=== PATIENT | female | born 1965 | race Caucasian/White ===

== ENCOUNTER 2019-01-19 18:19 | Observation (INO) | payer MEDICARE, MEDICAID ==
--- NOTE | 2019-01-19 19:03 | ER Document Report ---
ED Medical Screen (RME) - General Chief Complaint: Chest Pain Stated Complaint: CHEST PAIN Time Seen by Provider: 01/19/19 18:52 Notes: 53-year-old female with history of NSTEMI with 3 stents presents for left-sided chest pain that radiates into her left axilla and down her arm. Patient had associated nausea and dyspnea. Patient states symptoms are similar to previous incident. Patient states the pain started last night and she took nitroglycerin x 4 at about 1630 every 30 minutes with no relief. Positive family history mother had ME in her 40s, patient is not a smoker. Exam: No acute distress, respirations are even and unlabored, lungs clear to auscultation in all dan, regular cardiac rate and rhythm with no murmur, bilateral 2+ radial pulses I have greeted and performed a rapid initial assessment of this patient. A comprehensive ED assessment and evaluation of the patient, analysis of test results and completion of medical decision making process will be conducted by an additional ED providers. - Related Data Allergies/Adverse Reactions: NSAIDS (Non-Steroidal Anti-Inflamma Allergy (Verified 01/19/19 18:58) Physical Exam - Vital signs Vitals: Temp Pulse Resp BP Pulse Ox 97.9 F 104 H 18 106/64 97 01/19/19 18:45 01/19/19 18:45 01/19/19 18:45 01/19/19 18:45 01/19/19 18:45 Course - Vital Signs Vital signs: Temp Pulse Resp BP Pulse Ox 97.9 F 104 H 18 106/64 97 01/19/19 18:45 01/19/19 18:45 01/19/19 18:45 01/19/19 18:45 01/19/19 18:45
[2019-01-19] MEDS ORDERED: NITROGLYCERIN 0.4 MG/TAB 25 TAB/BOTTLE SL PRN (20:28)
[2019-01-19] MEDS ORDERED: NORMAL SALINE 1000 ML 1,000 ML IV ONE (20:29)
--- NOTE | 2019-01-19 20:54 | RADIOLOGY REPORT (SQ) ---
EXAM DESCRIPTION: [facility]: XR CHEST 1 VIEW CLINICAL HISTORY: 53 years Female, CP COMPARISON: None. FINDINGS: No acute infiltrate. There is minimal linear scarring in the left midlung field, likely in the lingula. No pneumothorax or pleural effusion. Mediastinum is within normal limits for this positioning. Bony structures are unremarkable. IMPRESSION: 1. No acute pulmonary findings.
--- NOTE | 2019-01-19 22:18 | EKG REPORT ---
SEVERITY:- BORDERLINE ECG - SINUS RHYTHM BORDERLINE T ABNORMALITIES, ANTERIOR LEADS : Confirmed by: Zarina Ordoñez 19-Jan-2019 22:17:33
[2019-01-19] MEDS ORDERED: ONDANSETRON HCL INJ/PF 4 MG/2 ML SDV IV ONE (22:43)
[2019-01-19] MEDS ORDERED: MORPHINE SULFATE 10 MG/ML INJ IV ONE (22:43)
[2019-01-19 22:57] LABS: AMORPHOUS SEDIMENT,URINE TRACE /HPF; APPEARANCE,URINE SLIGHTLY-CLOUDY; BILIRUBIN,URINE SMALL (NEGATIVE); COLOR,URINE YELLOW; GLUCOSE, URINE NEGATIVE (NEGATIVE); KETONES,URINE NEGATIVE (NEGATIVE); LEUKOCYTE ESTERASE,URINE TRACE (NEGATIVE); NITRITE,URINE NEGATIVE (NEGATIVE); PROTEIN,URINE NEGATIVE (NEGATIVE); URINE SPECIFIC GRAVITY 1.028
[2019-01-19 23:15] LABS: ABSOLUTE EOSINOPHILS # (AUTO) 0.1 10^3/uL (0.0-0.6); ABSOLUTE LYMPHOCYTES (AUTO) 1.7 10^3/uL (0.5-4.7); ABSOLUTE MONOCYTES (AUTO) 0.6 10^3/uL (0.1-1.4); ABSOLUTE NEUT (AUTO) 4.5 10^3/uL (1.7-8.2); BASOPHILS % (AUTO) 0.6 % (0-2); EOSINOPHILS % (AUTO) 1.9 % (0-6); HEMATOCRIT 32.5 % (36.0-47.0); HEMOGLOBIN 11.2 g/dL (12.0-15.5); LYMPHOCYTES % (AUTO) 24.9 % (13-45); MEAN CORPUSCULAR HEMOGLOBIN 29.7 pg (27.0-33.4); MEAN CORPUSCULAR HGB CONC 34.3 g/dL (32.0-36.0); MEAN CORPUSCULAR VOLUME 87 fl (80-97); MONOCYTES % (AUTO) 8.3 % (3-13); PLATELET COUNT 132 10^3/uL (150-450); RED BLOOD COUNT 3.75 10^6/uL (3.72-5.28); RED CELL DISTRIBUTION WIDTH 14.2 % (11.5-14.0); SEGMENTED NEUTROPHILS % (AUTO) 64.3 % (42-78); TOTAL CELLS COUNTED % (AUTO) 100 %
[2019-01-19 23:24] LABS: INTERNATIONAL RATION (INR) 1.07
[2019-01-19 23:26] LABS: D-DIMER 0.63 ug/mL (0.00-0.50)
[2019-01-19 23:30] LABS: ALBUMIN 3.6 g/dL (3.5-5.0); ALKALINE PHOSPHATASE 113 U/L (38-126); ANION GAP 8 (5-19); ASPARTATE AMINO TRANSFERASE 30 U/L (14-36); BILIRUBIN,DIRECT 0.2 mg/dL (0.0-0.4); BILIRUBIN,TOTAL 0.2 mg/dL (0.2-1.3); BLOOD UREA NITROGEN 15 mg/dL (7-20); CALCIUM 8.6 mg/dL (8.4-10.2); CARBON DIOXIDE 25 mmol/L (22-30); CHLORIDE 105 mmol/L (98-107); CREATINE KINASE 28 U/L (30-135); GLUCOSE 94 mg/dL (75-110); POTASSIUM 3.6 mmol/L (3.6-5.0); TOTAL PROTEIN 6.4 g/dL (6.3-8.2)
--- NOTE | 2019-01-19 23:59 | ER Document Report ---
ED Cardiac - General Chief Complaint: Chest Pain Stated Complaint: CHEST PAIN Time Seen by Provider: 01/19/19 18:52 Information source: Patient - HPI Notes: Patient complains of chest pain. She states that started this afternoon. It has been constant. It does get better with nitroglycerin but only for 5 or 10 minutes. She states it is substernal. It does radiate to her left arm. It is a heaviness or pressure sensation. It is moderate in intensity. She says some shortness of breath. She is also had nausea. She has not had any sweating. No cough cold or congestion. She states that 4 years ago she had stents placed but she has had no subsequent cardiac evaluation. She denies specifically any stress test or heart catheterizations. She does states she sees a heart doctor approximately every 1 to 2 months but he has never ordered any of those studies. - Related Data Allergies/Adverse Reactions: NSAIDS (Non-Steroidal Anti-Inflamma Allergy (Verified 01/19/19 18:58) Past Medical History - General Information source: Patient - Social History Smoking Status: Never Smoker Frequency of alcohol use: None Drug Abuse: None Family History: Reviewed & Not Pertinent Patient has suicidal ideation: No Patient has homicidal ideation: No GI Medical History: Reports: Hx Gastroesophageal Reflux Disease Psychiatric Medical History: Reports: Hx Depression Past Surgical History: Reports: Hx Section, Hx Cholecystectomy, Hx Tonsillectomy Review of Systems - Review of Systems Constitutional: denies: Chills, Fever Cardiovascular: Chest pain. denies: Palpitations Respiratory: Short of breath. denies: Cough Gastrointestinal: denies: Abdominal pain, Diarrhea, Vomiting -: Yes All other systems reviewed and negative Physical Exam - Vital signs Vitals: Temp Pulse Resp BP Pulse Ox 97.9 F 104 H 18 106/64 97 01/19/19 18:45 01/19/19 18:45 01/19/19 18:45 01/19/19 18:45 01/19/19 18:45 Interpretation: Normal - General General appearance: Appears well, Alert - HEENT Head: Normocephalic, Atraumatic Eyes: Normal Pupils: PERRL - Respiratory Respiratory status: No respiratory distress Chest status: Nontender Breath sounds: Normal Chest palpation: Normal - Cardiovascular Rhythm: Regular Heart sounds: Normal auscultation Murmur: No - Abdominal Inspection: Normal Distension: No distension Bowel sounds: Normal Tenderness: Nontender Organomegaly: No organomegaly - Back Back: Normal, Nontender - Extremities General upper extremity: Normal inspection, Nontender, Normal color, Normal ROM, Normal temperature General lower extremity: Normal inspection, Nontender, Normal color, Normal ROM, Normal temperature, Normal weight bearing. No: Henry's sign - Neurological Neuro grossly intact: Yes Cognition: Normal Orientation: AAOx4 Jessica Coma Scale Eye Opening: Spontaneous [place] Coma Scale Verbal: Oriented [place] Coma Scale Motor: Obeys Commands Jessica Coma Scale Total: 15 Speech: Normal Motor strength normal: LUE, RUE, LLE, RLE Sensory: Normal - Psychological Associated symptoms: Normal affect, Normal mood - Skin Skin Temperature: Warm Skin Moisture: Dry Skin Color: Normal Course - Re-evaluation Re-evalutation: 01/19/19 23:55 Patient reassessed at this time. She resting comfortably in the bed. She states her chest pain is better but not completely gone. Her troponin is negative her EKG is also unremarkable. Her HEART Score is 4. She appears comfortable and is sleeping in the room. However given patient's significant risk factors I think she warrants serial enzymes and EKGs. 01/20/19 03:01 Patient rested comfortably in the room at this time. Still has some minor chest pain. Second troponin is pending. Repeat EKG showed no sniffing and changes. Dr. Mcknight will follow up on repeat troponin and discussed with hospitalist the patient's admission. Patient has been told she will be admitted and is in agreement. - Vital Signs Vital signs: Temp Pulse Resp BP Pulse Ox 97.9 F 104 H 14 98/59 L 99 01/19/19 18:45 01/19/19 18:45 01/20/19 02:01 01/20/19 02:00 01/20/19 02:01 - Laboratory Result Diagrams: 01/19/19 22:58 01/19/19 22:58 Laboratory results interpreted by me: 01/19/19 01/19/19 01/19/19 22:25 22:58 22:58 Hgb 11.2 L Hct 32.5 L RDW 14.2 H Plt Count 132 L D-Dimer 0.63 H Creatine Kinase Urine Bilirubin SMALL H Urine Urobilinogen 2.0 H Ur Leukocyte Esterase TRACE H 01/19/19 22:58 Hgb Hct RDW Plt Count D-Dimer Creatine Kinase 28 L Urine Bilirubin Urine Urobilinogen Ur Leukocyte Esterase - Diagnostic Test Radiology reviewed: Image reviewed, Reports reviewed - EKG Interpretation by Me EKG shows normal: Sinus rhythm Rate: Normal - 99 Rhythm: NSR [place]/QRS: No: Right axis deviation, Left axis deviation Discharge - Discharge Clinical Impression: Chest pain Qualifiers: Chest pain type: unspecified Qualified Code(s): R07.9 - Chest pain, unspecified Condition: Stable Disposition: ADMITTED INPATIENT Admitting Provider: Ivonne (Hospitalist) Unit Admitted: Telemetry
--- NOTE | 2019-01-20 03:19 | ER Document Report ---
Doctor's Note Notes: 01/20/19 03:16 ASSESSMENT AND PLAN: Briefly, this patient is a 53-year-old female with a past medical history of urinary artery disease who presents with chest pain. Work-up thus far shows first troponin is negative and there are no EKG changes. Interventions include IV fluids and sublingual nitroglycerin. Plan as discussed with Dr. Galarza is to admit the patient and await second troponin. 1. Patient is admitted to the hospital. 2. Will follow up on repeat troponin. Discharge - Discharge Clinical Impression: Chest pain Qualifiers: Chest pain type: unspecified Qualified Code(s): R07.9 - Chest pain, unspecified Condition: Stable Disposition: ADMITTED INPATIENT Admitting Provider: Ivonne (Hospitalist) Unit Admitted: Telemetry
[2019-01-20] MEDS ORDERED: ACETAMINOPHEN 325 MG TABLET PO PRN (03:47)
[2019-01-20] MEDS ORDERED: MAGNESIUM HYDROXIDE SUSP 30 ML UDCUP PO PRN (03:47)
[2019-01-20] MEDS ORDERED: MAG HYDROX/AL HYDROX/SIMETH SUSP 30 ML UDCUP PO PRN (03:47)
[2019-01-20] MEDS ORDERED: MORPHINE SULFATE 10 MG/ML INJ IV PRN ×2 (03:47→04:11)
[2019-01-20] MEDS: HEPARIN SOD (PORCINE) 5,000 UNIT/ML 1 ML VIAL SUBCUT SCH ×3 (05:31→22:10)
--- NOTE | 2019-01-20 05:34 | PDOC H&P ---
History of Present Illness Admission Date/PCP: 01/20/2019 03:17 No local PCP Patient complains of: Chest pain History of Present Illness: DWIGHT MURPHY is a 53 year old female who presented to the emergency room with acute chest pain. She admits developing chest pain about 1:30 p.m. which persisted until about 4:30 p.m. when she noted the pain to abruptly become more severe. She began taking nitroglycerin, one tablet sublingually every 30 minutes x 4 doses, with only transient relief. She describes the pain as a constant moderate to severe heaviness in her substernal and left chest with radiation to her left axilla and down her left arm. The pain was accompanied by nausea and dyspnea. She denies other associated or accompanying signs and symptoms. She admits numerous prior similar episodes related to her coronary artery disease. She has not identified any additional aggravating or ameliorating factors for her chest pain. In the emergency room she was found to have an EKG and cardiac enzymes which showed no evidence of acute myocardial ischemia or injury. She was subsequently admitted to the hospital on observation status for further evaluation treatment. Past Medical History Cardiac Medical History: Reports: Coronary Artery Disease Denies: Atrial Fibrillation, Congestive Heart Failure, Myocardial Infarction, Hyperlipidema, Hypertension Pulmonary Medical History: Denies: Asthma, Chronic Obstructive Pulmonary Disease (COPD) EENT Medical History: Denies: Cataracts, Ears - Hearing aids Neurological Medical History: Denies: Hemorrhagic CVA, Ischemic CVA, Seizures Endocrine Medical History: Reports: Obesity Denies: Diabetes Mellitus Type 1, Diabetes Mellitus Type 2, Hyperthyroidism, Hypothyroidism Renal/ Medical History: Denies: Chronic Kidney Disease, Nephrolithiasis Malignancy Medical History: Reports: None GI Medical History: Reports: Gastroesophageal Reflux Disease Denies: Cirrhosis, Crohn's Disease, Hepatitis, Ulcerative Colitis Musculoskeltal Medical History: Denies: Arthritis, Gout Skin Medical History: Denies: Eczema, Psoriasis Psychiatric Medical History: Reports: Depression Denies: Alcohol Dependency, Substance Abuse, Tobacco Dependency Traumatic Medical History: Reports: None Hematology: Denies: Anemia, Bleeding Tendencies Infectious Medical History: Reports: None Past Surgical History Past Surgical History: Reports: Cardiac Catheterization, Section, Cholecystectomy, Coronary Stent - X 2, Tonsillectomy Social History Information Source: Patient Lives with: Spouse/Significant other Smoking Status: Never Smoker Frequency of Alcohol Use: None Hx Recreational Drug Use: No Drugs: None Hx Prescription Drug Abuse: No - Advance Directive Resuscitation Status: Full Code Surrogate healthcare decision maker:: Mina Juan Family History Family History: CAD. denies: DM, Hyperlipidemia, Hypertension, Malignancy Parental Family History Reviewed: Yes Children Family History Reviewed: No Sibling(s) Family History Reviewed.: Yes Medication/Allergy Allergies/Adverse Reactions: NSAIDS (Non-Steroidal Anti-Inflamma Allergy (Verified 01/19/19 18:58) Review of Systems Constitutional: ABSENT: chills, fever(s) Eyes: ABSENT: visual disturbances, other - Eye pain Ears: ABSENT: hearing changes, other - Ear pain Nose, Mouth, and Throat: ABSENT: mouth pain, sore throat Cardiovascular: PRESENT: as per HPI, chest pain, dyspnea on exertion. ABSENT: edema, orthropnea, palpitations Respiratory: PRESENT: dyspnea. ABSENT: cough Gastrointestinal: PRESENT: as per HPI, nausea. ABSENT: abdominal pain, co nstipation, diarrhea, vomiting Genitourinary: ABSENT: dysuria, hematuria Musculoskeletal: ABSENT: back pain, joint swelling, muscle weakness Integumentary: ABSENT: pruritus, rash Neurological: ABSENT: confusion, convulsions, focal weakness, memory loss, syncope Psychiatric: ABSENT: anxiety, depression Endocrine: ABSENT: cold intolerance, heat intolerance Hematologic/Lymphatic: ABSENT: easy bleeding, easy bruising Allergic/Immunologic: ABSENT: seasonal rhinorrhea Physical Exam Vital Signs: Temp Pulse Resp BP Pulse Ox 97.9 F 104 H 14 107/63 99 01/20/19 03:04 01/19/19 18:45 01/20/19 03:04 01/20/19 03:04 01/20/19 03:04 Intake & Output 01/18/19 01/19/19 01/20/19 23:59 23:59 23:59 Intake Total 1000 Balance 1000 Weight 101.3 kg General appearance: PRESENT: no acute distress, cooperative, obese Head exam: PRESENT: atraumatic, normocephalic Eye exam: PRESENT: conjunctiva pink. ABSENT: conjunctival injection, scleral icterus Ear exam: PRESENT: normal external ear exam. ABSENT: bleeding, drainage Mouth exam: PRESENT: dry mucosa, neck supple Neck exam: ABSENT: thyromegaly, tracheal deviation Respiratory exam: PRESENT: clear to auscultation scotty, symmetrical, unlabored Cardiovascular exam: PRESENT: RRR. ABSENT: clicks, gallop, rubs Pulses: PRESENT: normal radial pulses, normal dorsalis pedis pul Vascular exam: PRESENT: normal capillary refill. ABSENT: pallor GI/Abdominal exam: PRESENT: normal bowel sounds, soft Rectal exam: PRESENT: deferred Extremities exam: ABSENT: joint swelling, pedal edema Musculoskeletal exam: ABSENT: deformity, dislocation Neurological exam: PRESENT: alert, oriented to person, oriented to place, oriented to time, oriented to situation, CN II-XII grossly intact. ABSENT: motor sensory deficit Psychiatric exam: PRESENT: appropriate affect, normal mood Skin exam: PRESENT: dry, intact, warm. ABSENT: jaundice, rash, urticaria Results Laboratory Results: 01/19/19 22:58 01/19/19 22:58 01/19/19 01/19/19 01/19/19 22:25 22:58 22:58 WBC 7.0 RBC 3.75 Hgb 11.2 L Hct 32.5 L MCV 87 MCH 29.7 MCHC 34.3 RDW 14.2 H Plt Count 132 L Seg Neutrophils % 64.3 Sodium 137.7 Potassium 3.6 Chloride 105 Carbon Dioxide 25 Anion Gap 8 BUN 15 Creatinine 0.89 Est GFR ( Amer) > 60 Glucose 94 Calcium 8.6 Total Bilirubin 0.2 AST 30 Alkaline Phosphatase 113 Total Protein 6.4 Albumin 3.6 Urine Color YELLOW Urine Appearance SLIGHTLY-CLOUDY Urine pH 6.0 Ur Specific [place] 1.028 Urine Protein NEGATIVE Urine Glucose (UA) NEGATIVE Urine Ketones NEGATIVE Urine Blood NEGATIVE Urine Nitrite NEGATIVE Ur Leukocyte Esterase TRACE H Urine WBC (Auto) 16 Urine RBC (Auto) 4 01/19/19 01/19/19 22:58 22:58 Creatine Kinase 28 L Troponin I < 0.012 Impressions: Chest X-Ray 01/19/19 20:18 IMPRESSION: 1. No acute pulmonary findings. Assessment and Plan - Diagnosis (1) Chest pain Qualifiers: Chest pain type: unspecified Qualified Code(s): R07.9 - Chest pain, unspecified Is this a current diagnosis for this admission?: Yes Plan: Serial cardiac enzymes will be obtained to evaluate for the possibility of myocardial infarction or ischemia. If negative patient will have a Cardiolite cardiac stress test. Her chest pain will be treated with morphine sulfate 2-4 mg IV every 2 hours as needed via a sliding scale for pain. Additionally she will have Nitrol ointment 1 inch applied every 6 hours. (2) CAD (coronary artery disease), [place] coronary artery Qualifiers: [place] vs. transplanted heart: [place] heart Associated angina: with unspecified angina Qualified Code(s): I25.119 - Atherosclerotic heart disease of [place] coronary artery with unspecified angina pectoris Is this a current diagnosis for this admission?: Yes Plan: Patient will be continued on her usual cardiac regimen, with changes made only as required. (3) Gastroesophageal reflux disease with esophagitis Is this a current diagnosis for this admission?: Yes Plan: Patient will be continued on her usual gastroesophageal reflux disease regiment with changes made only as required. (4) Obesity (BMI 30-39.9) Is this a current diagnosis for this admission?: Yes Plan: A surgical manager consultation will be obtained for the patient to assist her in better cardiac health through weight loss. - Time Time Spent with patient: 25-34 minutes Medications reviewed and adjusted accordingly: Yes Anticipated discharge: Home Within: within 48 hours - Inpatient Certification Based on my medical assessment, after consideration of the patient's comorbidities, presenting symptoms, or acuity I expect that the services needed warrant INPATIENT care.: No I certify that my determination is in accordance with my understanding of Medicare's requirements for reasonable and necessary INPATIENT services [42 CFR 412.3e].: No Medical Necessity: Need Close Monitoring Due to Risk of Patient Decompensation, Need For Continuous Telemetry Monitoring, Need for Pain Control, Risk of Complication if Not Cared For in Hospital
[2019-01-20] MEDS ORDERED: NITROGLYCERIN 2% OINTMENT 1 GM PACKET TP SCH (06:00)
[2019-01-20] MEDS ORDERED: NORMAL SALINE 1000 ML 1,000 ML IV ONE (06:30)
[2019-01-20] MEDS: FAMOTIDINE 20 MG TABLET PO SCH ×4 (08:16→22:12)
[2019-01-20] MEDS: SUCRALFATE 1 GM TABLET PO SCH ×4 (08:16→22:11)
[2019-01-20] MEDS: METOCLOPRAMIDE HCL 10 MG TABLET PO SCH ×4 (08:16→22:12)
[2019-01-20] MEDS: DOCUSATE SODIUM 100 MG CAPSULE PO SCH ×2 (09:01→17:04)
[2019-01-20 09:58] LABS: CHOLESTEROL 113.78 mg/dL (0-200); CREATINE KINASE 22 U/L (30-135); TRIGLYCERIDES 111 mg/dL (<150)
[2019-01-20 10:09] LABS: DIRECT LDL 50 mg/dL (<100); FREE T3 3.25 pg/mL (2.77-5.27); FREE T4 (FREE THYROXINE) 1.01 ng/dL (0.78-2.19)
[2019-01-20 10:22] LABS: THYROID STIMULATING HORMONE 2.94 uIU/mL (0.47-4.68)
[2019-01-20] MEDS ORDERED: (PENDING PHARMACY ID) (Hydroxyzine Hcl [Atarax 25 Mg Tablet] 25 MG) PO PRN (12:01)
[2019-01-20] MEDS ORDERED: (PENDING PHARMACY ID) (Quetiapine Fumarate [Seroquel] 50 MG) PO SCH (12:15)
[2019-01-20] MEDS ORDERED: DIAZEPAM 5 MG TABLET PO PRN (12:26)
[2019-01-20] MEDS ORDERED: HYDROXYZINE HCL 10 MG TABLET PO PRN (12:27)
[2019-01-20] MEDS: DULOXETINE HCL 30 MG CAPSULE.DR PO SCH ×2 (12:36→22:12)
[2019-01-20] MEDS: CLOPIDOGREL BISULFATE 75 MG TABLET PO SCH (12:42)
[2019-01-20] MEDS: NORMAL SALINE 1000 ML 1,000 ML IV PRN (15:41)
[2019-01-20 15:51] LABS: CREATINE KINASE MB < 0.22 ng/mL (<4.55); TROPONIN I < 0.012 ng/mL
[2019-01-20] MEDS ORDERED: QUETIAPINE FUMARATE 25 MG TABLET PO SCH (18:00)
[2019-01-20 21:52] LABS: CREATINE KINASE MB < 0.22 ng/mL (<4.55); TROPONIN I < 0.012 ng/mL
[2019-01-20] MEDS ORDERED: AMITRIPTYLINE HCL 50 MG TABLET PO SCH (22:00)
[2019-01-20] MEDS ORDERED: SIMVASTATIN 40 MG TABLET PO SCH (22:00)
[2019-01-20] MEDS ORDERED: (PENDING PHARMACY ID) (Amitriptyline Hcl [Elavil 100 Mg Tablet] 100 MG) PO SCH (22:00)
[2019-01-20] MEDS ORDERED: (PENDING PHARMACY ID) (Quetiapine Fumarate [Seroquel] 200 MG) PO SCH (22:00)
[2019-01-20] MEDS ORDERED: QUETIAPINE FUMARATE 100 MG TABLET PO SCH (22:00)
[2019-01-20] MEDS: SIMVASTATIN 10 MG TABLET PO SCH (22:11)
[2019-01-20] MEDS: QUETIAPINE FUMARATE 100 MG TABLET PO SCH (22:12)
[2019-01-20] MEDS: MORPHINE SULFATE 10 MG/ML INJ IV PRN (22:13)
[2019-01-21] MEDS: MORPHINE SULFATE 10 MG/ML INJ IV PRN ×5 (02:41→20:27)
[2019-01-21] MEDS: HEPARIN SOD (PORCINE) 5,000 UNIT/ML 1 ML VIAL SUBCUT SCH ×3 (05:49→22:27)
[2019-01-21] MEDS: NORMAL SALINE 1000 ML 1,000 ML IV PRN (05:51)
[2019-01-21] MEDS: FAMOTIDINE 20 MG TABLET PO SCH ×3 (09:20→16:00)
[2019-01-21] MEDS: SUCRALFATE 1 GM TABLET PO SCH ×4 (09:21→22:25)
[2019-01-21] MEDS: METOCLOPRAMIDE HCL 10 MG TABLET PO SCH ×4 (09:22→22:26)
[2019-01-21] MEDS: CLOPIDOGREL BISULFATE 75 MG TABLET PO SCH (09:23)
[2019-01-21] MEDS: DULOXETINE HCL 30 MG CAPSULE.DR PO SCH ×2 (09:23→22:23)
[2019-01-21] MEDS: DOCUSATE SODIUM 100 MG CAPSULE PO SCH ×2 (09:23→18:27)
--- NOTE | 2019-01-21 11:02 | EKG REPORT ---
SEVERITY:- BORDERLINE ECG - SINUS RHYTHM BORDERLINE T ABNORMALITIES, ANTERIOR LEADS BORDERLINE PROLONGED QT INTERVAL : Confirmed by: Zarina Ordoñez 21-Jan-2019 11:01:56
--- NOTE | 2019-01-21 16:17 | PDOC PROGRESS REPORT ---
Subjective Progress Note for:: 01/21/19 Subjective:: DWIGHT MURPHY is a 53 year old female who presented to the emergency room with acute chest pain. She admits developing chest pain about 1:30 p.m. which persisted until about 4:30 p.m. when she noted the pain to abruptly become more severe. She began taking nitroglycerin, one tablet sublingually every 30 minutes x 4 doses, with only transient relief. She describes the pain as a constant moderate to severe heaviness in her substernal and left chest with radiation to her left axilla and down her left arm. The pain was accompanied by nausea and dyspnea. She denies other associated or accompanying signs and symptoms. She admits numerous prior similar episodes related to her coronary artery disease. She has not identified any additional aggravating or kendra liorating factors for her chest pain. In the emergency room she was found to have an EKG and cardiac enzymes which showed no evidence of acute myocardial ischemia or injury. She was subsequently admitted to the hospital on observation status for further evaluation treatment. Reason For Visit: CHEST PAIN Physical Exam Vital Signs: Temp Pulse Resp BP Pulse Ox 98.3 F 86 13 100/83 96 01/21/19 12:51 01/21/19 12:51 01/21/19 12:51 01/21/19 12:51 01/21/19 15:45 Pulse Oximeter Continuous Start: 01/21/19 01:07 Freq: RTQ4 Status: Active Protocol: Document 01/21/19 15:45 PMU (Rec: 01/21/19 15:47 PMU [id number]) Pulse Oximetry Assessment Oxygen Saturation (92-100) 96 Fraction of Inspired Oxygen (FIO2) 21 Equipment Usage Equipment in Use Continuous SpO2 Machine # [id number] Intake & Output 01/20/19 01/21/19 01/22/19 06:59 06:59 06:59 Intake Total 1000 1999 Output Total 0 Balance 1000 1999 Weight 98.6 kg 97.9 kg Results Laboratory Results: 01/19/19 22:58 01/19/19 22:58 01/19/19 01/19/19 01/20/19 22:58 22:58 02:34 Creatine Kinase 28 L CK-MB (CK-2) Troponin I < 0.012 < 0.012 01/20/19 01/20/19 01/20/19 08:52 08:52 10:53 Creatine Kinase 22 L CK-MB (CK-2) < 0.22 Troponin I Cancelled < 0.012 01/20/19 01/20/19 01/20/19 14:30 14:50 21:10 Creatine Kinase 25 L 21 L CK-MB (CK-2) < 0.22 Troponin I < 0.012 01/20/19 21:10 Creatine Kinase CK-MB (CK-2) < 0.22 Troponin I < 0.012 Impressions: Chest X-Ray 01/19/19 20:18 IMPRESSION: 1. No acute pulmonary findings. Assessment and Plan - Diagnosis (1) Chest pain Qualifiers: Chest pain type: unspecified Qualified Code(s): R07.9 - Chest pain, unspecified Is this a current diagnosis for this admission?: Yes Plan: Still complaining of persistent chest pain, pressure-like, left lower chest, and left upper abdomen, by nitroglycerin. Troponins negative x4 EKG no acute changes. Cardiolite cardiac stress test scheduled but had to be consulted yesterday and today as patient having ongoing persistent chest pain. Continue telemetry, antiplatelets, blockers, JENNIFER, sublingual nitroglycerin, morphine. (2) CAD (coronary artery disease), [place] coronary artery Qualifiers: [place] vs. transplanted heart: [place] heart Associated angina: with unspecified angina Qualified Code(s): I25.119 - Atherosclerotic heart disease of [place] coronary artery with unspecified angina pectoris Is this a current diagnosis for this admission?: Yes Plan: Status post 2 stent placement x2 years. Continue DAPT, beta-blockers, statins, JENNIFER. Outpatient cardiology follow-up. (3) Gastroesophageal reflux disease with esophagitis Is this a current diagnosis for this admission?: Yes Plan: Continue PPIs. Avoid NSAIDs. H&H stable. Denies any hematemesis, melena or hematochezia. Outpatient PCP gastroenterology follow-up. Patient may need GI endoscopy in future. (4) Obesity (BMI 30-39.9) Is this a current diagnosis for this admission?: Yes Plan: Diet and lifestyle modification recommended. Thyroid function test WNL. (5) Depression Is this a current diagnosis for this admission?: Yes Plan: Chronic. On multiple antidepressant and antipsychotics. Patient very somnolent most of the time. Denies any homicidal or suicidal ideation. Restart home medications at a lower dose to avoid excessive somnolence. Outpatient PCP and psychiatry follow-up. (6) Somnolence Is this a current diagnosis for this admission?: Yes Plan: Very somnolent sleeping most of the night and day. This is most likely induced by polypharmacy. Patient's home medications are Hydroxyzine 25 mg every 8 as needed. Duloxetine 60 mg p.o. twice daily. Trazodone 300 mg p.o. nightly. Amitriptyline 100 mg p.o. nightly. Gabapentin 800 mg p.o. twice daily. [place] 1 tab every 4 hours as needed. Seroquel 200 mg p.o. nightly. Seroquel 50 mg p.o. twice daily. Soma 350 mg p.o. every 8 hours as needed. Diazepam 10 mg p.o. twice daily PRN. To avoid withdrawal and reduce excessive somnolence will restart home meds at the lower dosage. Continue Seroquel 100 mg p.o. nightly, amitriptyline 50 mg p.o. nightly, duloxetine mg p.o. twice daily, trazodone 150 mg nightly. Patient's medications need to be reconciled by psychiatry and PCP. Strongly advised patient to follow-up with PCP and psychiatry for reconciliation of her meds.
[2019-01-21] MEDS: PANTOPRAZOLE SODIUM 40 MG TABLET.DR PO SCH (17:15)
[2019-01-21] MEDS ORDERED: (PENDING PHARMACY ID) (Trazodone Hcl [Desyrel] 150 MG) PO SCH (22:00)
[2019-01-21] MEDS: SIMVASTATIN 10 MG TABLET PO SCH (22:23)
[2019-01-21] MEDS: TRAZODONE HCL 50 MG TABLET PO SCH (22:23)
[2019-01-21] MEDS: QUETIAPINE FUMARATE 100 MG TABLET PO SCH (22:25)
[2019-01-21] MEDS: AMITRIPTYLINE HCL 50 MG TABLET PO SCH (22:25)
[2019-01-22] MEDS: HEPARIN SOD (PORCINE) 5,000 UNIT/ML 1 ML VIAL SUBCUT SCH ×3 (06:00→21:25)
[2019-01-22 07:33] LABS: ALBUMIN 3.1 g/dL (3.5-5.0); ALKALINE PHOSPHATASE 98 U/L (38-126); ANION GAP 6 (5-19); ASPARTATE AMINO TRANSFERASE 26 U/L (14-36); BILIRUBIN,DIRECT 0.2 mg/dL (0.0-0.4); BILIRUBIN,TOTAL 0.2 mg/dL (0.2-1.3); BLOOD UREA NITROGEN 8 mg/dL (7-20); CALCIUM 8.6 mg/dL (8.4-10.2); CARBON DIOXIDE 29 mmol/L (22-30); CHLORIDE 106 mmol/L (98-107); GLUCOSE 80 mg/dL (75-110); TOTAL PROTEIN 5.7 g/dL (6.3-8.2)
[2019-01-22] MEDS: SUCRALFATE 1 GM TABLET PO SCH ×4 (08:13→21:23)
[2019-01-22] MEDS: PANTOPRAZOLE SODIUM 40 MG TABLET.DR PO SCH ×2 (08:13→17:56)
[2019-01-22] MEDS: METOCLOPRAMIDE HCL 10 MG TABLET PO SCH ×4 (08:13→21:23)
[2019-01-22] MEDS: MORPHINE SULFATE 10 MG/ML INJ IV PRN ×4 (08:21→23:08)
[2019-01-22] MEDS: ONDANSETRON HCL INJ/PF 4 MG/2 ML SDV IV PRN ×4 (08:21→23:07)
--- NOTE | 2019-01-22 11:54 | PDOC PROGRESS REPORT ---
Subjective Progress Note for:: 01/22/19 Subjective:: DWIGHT MURPHY is a 53 year old female who presented to the emergency room with acute chest pain. She admits developing chest pain about 1:30 p.m. which persisted until about 4:30 p.m. when she noted the pain to abruptly become more severe. She began taking nitroglycerin, one tablet sublingually every 30 minutes x 4 doses, with only transient relief. She describes the pain as a constant moderate to severe heaviness in her substernal and left chest with radiation to her left axilla and down her left arm. The pain was accompanied by nausea and dyspnea. She denies other associated or accompanying signs and symptoms. She admits numerous prior similar episodes related to her coronary artery disease. She has not identified any additional aggravating or kendra liorating factors for her chest pain. In the emergency room she was found to have an EKG and cardiac enzymes which showed no evidence of acute myocardial ischemia or injury. She was subsequently admitted to the hospital on observation status for further evaluation treatment. 01/22/2019. No acute events overnight, patient is stating that she is still having on and off chest pain, left-sided, pressure-like, 4/5, stress test was canceled again because of chest pain. Patient is more awake and alert and cooperative with physical examination. Apart from recurrent chest pain she denies any fever, chills, nausea, vomiting, diarrhea, constipation or any urinary symptoms. Reason For Visit: CHEST PAIN Physical Exam Vital Signs: Temp Pulse Resp BP Pulse Ox 97.9 F 86 15 130/61 H 98 01/22/19 08:28 01/22/19 08:28 01/22/19 08:28 01/22/19 08:28 01/22/19 08:00 Pulse Oximeter Continuous Start: 01/21/19 01:07 Freq: RTQ4 Status: Active Protocol: Document 01/22/19 08:00 SANDRA (Rec: 01/22/19 08:57 SANDRA [id number]) Pulse Oximetry Assessment Oxygen Saturation (92-100) 98 Oxygen Flow Rate (L/min) 1 Oxygen Delivery Method Nasal Cannula Equipment Usage Equipment in Use Continuous SpO2 Machine # 1 Intake & Output 01/21/19 01/22/19 01/23/19 06:59 06:59 06:59 Intake Total 1999 480 Balance 1999 480 Weight 97.9 kg 101.7 kg General appearance: PRESENT: morbidly obese Head exam: PRESENT: atraumatic, normocephalic Respiratory exam: PRESENT: clear to auscultation scotty. ABSENT: rales, rhonchi, wheezes Cardiovascular exam: PRESENT: RRR. ABSENT: diastolic murmur, rubs, systolic murmur GI/Abdominal exam: PRESENT: normal bowel sounds, soft. ABSENT: distended, guarding, mass, organolmegaly, rebound, tenderness Extremities exam: PRESENT: full ROM. ABSENT: calf tenderness, clubbing, pedal edema Neurological exam: PRESENT: alert, awake, oriented to person, oriented to place, oriented to time, oriented to situation, CN II-XII grossly intact. ABSENT: motor sensory deficit Results Laboratory Results: 01/19/19 22:58 01/22/19 05:48 01/22/19 05:48 Sodium 141.0 Potassium 4.0 Chloride 106 Carbon Dioxide 29 Anion Gap 6 BUN 8 Creatinine 0.84 Est GFR ( Amer) > 60 Glucose 80 Calcium 8.6 Magnesium 2.0 Total Bilirubin 0.2 AST 26 Alkaline Phosphatase 98 Total Protein 5.7 L Albumin 3.1 L 01/19/19 01/19/19 01/20/19 22:58 22:58 02:34 Creatine Kinase 28 L CK-MB (CK-2) Troponin I < 0.012 < 0.012 01/20/19 01/20/19 01/20/19 08:52 08:52 10:53 Creatine Kinase 22 L CK-MB (CK-2) < 0.22 Troponin I Cancelled < 0.012 01/20/19 01/20/19 01/20/19 14:30 14:50 21:10 Creatine Kinase 25 L 21 L CK-MB (CK-2) < 0.22 Troponin I < 0.012 01/20/19 21:10 Creatine Kinase CK-MB (CK-2) < 0.22 Troponin I < 0.012 Impressions: Chest X-Ray 01/19/19 20:18 IMPRESSION: 1. No acute pulmonary findings. Assessment and Plan - Diagnosis (1) Chest pain Qualifiers: Chest pain type: unspecified Qualified Code(s): R07.9 - Chest pain, unspecified Is this a current diagnosis for this admission?: Yes Plan: Still complaining of persistent chest pain, 4/5, pressure-like, left lower chest, and left upper abdomen, by nitroglycerin. Troponins negative x4 EKG no acute changes. Cardiolite cardiac stress test scheduled but had to be consulted yesterday and today as patient having ongoing persistent chest pain. Continue telemetry, antiplatelets, blockers, JENNIFER, sublingual nitroglycerin, morphine. (2) CAD (coronary artery disease), [place] coronary artery Qualifiers: [place] vs. transplanted heart: [place] heart Associated angina: with unspecified angina Qualified Code(s): I25.119 - Atherosclerotic heart disease of [place] coronary artery with unspecified angina pectoris Is this a current diagnosis for this admission?: Yes Plan: Status post 2 stent placement x2 years. Continue Plavix, beta-blockers, statins, JENNIFER. Outpatient cardiology follow-up. (3) Gastroesophageal reflux disease with esophagitis Is this a current diagnosis for this admission?: Yes Plan: Continue PPIs. Avoid NSAIDs. H&H stable. Denies any hematemesis, melena or hematochezia. Outpatient PCP gastroenterology follow-up. Patient may need GI endoscopy in future. (4) Obesity (BMI 30-39.9) Is this a current diagnosis for this admission?: Yes Plan: Diet and lifestyle modification recommended. Thyroid function test WNL. (5) Depression Is this a current diagnosis for this admission?: Yes Plan: Chronic. On multiple antidepressant and antipsychotics. Patient very somnolent most of the time. Denies any homicidal or suicidal ideation. Restart home medications at a lower dose to avoid excessive somnolence. Outpatient PCP and psychiatry follow-up. (6) Somnolence Is this a current diagnosis for this admission?: Yes Plan: Much improved. Patient more alert and cooperative with physical examination. Had a discussion about taking too many antipsychotics and antidepressants. Patient lives in [place], [facility], stating that she sees a psychiatrist and PCP who both have prescribed her below medications. Patient's home medications are Hydroxyzine 25 mg every 8 as needed. Duloxetine 60 mg p.o. twice daily. Trazodone 300 mg p.o. nightly. Amitriptyline 100 mg p.o. nightly. Gabapentin 800 mg p.o. twice daily. [place] 1 tab every 4 hours as needed. Seroquel 200 mg p.o. nightly. Seroquel 50 mg p.o. twice daily. Soma 350 mg p.o. every 8 hours as needed. Diazepam 10 mg p.o. twice daily PRN. To avoid withdrawal and reduce excessive somnolence will restart home meds at the lower dosage. Continue Seroquel 100 mg p.o. nightly, amitriptyline 50 mg p.o. nightly, duloxetine mg p.o. twice daily, trazodone 150 mg nightly. Patient's medications need to be reconciled by psychiatry and PCP. Strongly advised patient to follow-up with PCP and psychiatry for reconciliation of her meds. I have informed patient that I have cut down on her medications due to excessive somnolence and would like her to continue this regimen until seen by her psychiatrist. Patient agreed.
[2019-01-22] MEDS: DOCUSATE SODIUM 100 MG CAPSULE PO SCH ×2 (12:21→17:56)
[2019-01-22] MEDS: CLOPIDOGREL BISULFATE 75 MG TABLET PO SCH (12:22)
[2019-01-22] MEDS: DULOXETINE HCL 30 MG CAPSULE.DR PO SCH ×2 (12:22→21:23)
[2019-01-22] MEDS: TRAZODONE HCL 50 MG TABLET PO SCH (21:20)
[2019-01-22] MEDS: AMITRIPTYLINE HCL 50 MG TABLET PO SCH (21:22)
[2019-01-22] MEDS: SIMVASTATIN 10 MG TABLET PO SCH (21:22)
[2019-01-22] MEDS: QUETIAPINE FUMARATE 100 MG TABLET PO SCH (21:23)
[2019-01-23] MEDS: PANTOPRAZOLE SODIUM 40 MG TABLET.DR PO SCH ×2 (05:41→16:50)
[2019-01-23] MEDS: HEPARIN SOD (PORCINE) 5,000 UNIT/ML 1 ML VIAL SUBCUT SCH ×3 (05:41→21:33)
[2019-01-23 06:51] LABS: ANION GAP 5 (5-19); BLOOD UREA NITROGEN 8 mg/dL (7-20); CALCIUM 8.6 mg/dL (8.4-10.2); CARBON DIOXIDE 33 mmol/L (22-30); CHLORIDE 102 mmol/L (98-107); GLUCOSE 85 mg/dL (75-110); POTASSIUM 4.3 mmol/L (3.6-5.0)
[2019-01-23] MEDS: METOCLOPRAMIDE HCL 10 MG TABLET PO SCH ×4 (08:40→21:31)
[2019-01-23] MEDS: SUCRALFATE 1 GM TABLET PO SCH ×4 (08:40→21:30)
[2019-01-23] MEDS: MORPHINE SULFATE 10 MG/ML INJ IV PRN ×4 (08:43→18:44)
[2019-01-23] MEDS: CLOPIDOGREL BISULFATE 75 MG TABLET PO SCH (09:54)
[2019-01-23] MEDS: DOCUSATE SODIUM 100 MG CAPSULE PO SCH ×2 (09:54→17:19)
[2019-01-23] MEDS: DULOXETINE HCL 30 MG CAPSULE.DR PO SCH ×2 (09:54→21:30)
[2019-01-23] MEDS: ONDANSETRON HCL INJ/PF 4 MG/2 ML SDV IV PRN ×2 (12:51→18:44)
--- NOTE | 2019-01-23 13:52 | RADIOLOGY REPORT (SQ) ---
EXAM DESCRIPTION: BARIUM SWALLOW ESOPHAGUS COMPLETED DATE/TIME: 01/23/2019 10:59 am REASON FOR STUDY: Dysphagia, GERD, Chest pain COMPARISON: AP chest 01/19/2019 TECHNIQUE: Under fluoroscopic guidance, patient ingested effervescent granules followed by thick and thin barium. Fluoroscopic spot images and routine radiographic images acquired and stored on PACS. 12 MM BARIUM TABLET GIVEN: Yes. No significant delay in passage. LIMITATIONS: None. FLUOROSCOPY TIME: FLUORO TIME: 2 minutes 8 seconds 15 series of digital fluoroscopic images saved to PACS. FINDINGS: NEUROMUSCULAR COORDINATION OF SWALLOW: Normal. No aspiration. ESOPHAGEAL MOTILITY: Normal peristalsis. No esophageal spasm. ESOPHAGEAL MUCOSA: Normal mucosa without masses or ulceration. GASTRO-ESOPHAGEAL JUNCTION: Tiny sliding hiatal hernia with minimal peptic narrowing of the distal es ophagus. No ulceration. No Schatzki's ring. Minimal gastroesophageal reflux. STOMACH: The esophagus empties into a fundal pouch of a Mirna-en-Y gastric bypass. Although there is prompt filling of the efferrent loop from the gastric pouch, the anastomosis with the pouch is marked ly abnormal, distorted and ulcerated. There is filling of the [place] body and antrum of stomach. Th is represents a failed gastric bypass with abnormal connection between the fundal pouch and body/antr um of stomach from peptic disease or erosions. There is prompt emptying of the antrum and pylorus into the duodenum. OTHER: No other significant finding. IMPRESSION: Abnormal stomach. Post gastric bypass with Mirna loop. Aberrant communication between t he fundal pouch/proximal Mirna loop and remainder of the stomach through a distorted irregular channel , possibly from chronic peptic disease and ulceration. Barium passes through the fundal pouch and in to the efferrent loop and gastric antrum/pylorus region without delay. COMMENT: Quality ID [id number]: Final reports for procedures using fluoroscopy that document radiation exp osure indices, or exposure time and number of fluorographic images (if radiation exposure indices are not available) TECHNICAL DOCUMENTATION: JOB ID: [id number] [employer]- All Rights Reserved Reading location - IP/workstation name: [email or web address]
--- NOTE | 2019-01-23 17:21 | PDOC PROGRESS REPORT ---
Subjective Progress Note for:: 01/23/19 Subjective:: DWIGHT MURPHY is a 53 year old female who presented to the emergency room with acute chest pain. She admits developing chest pain about 1:30 p.m. which persisted until about 4:30 p.m. when she noted the pain to abruptly become more severe. She began taking nitroglycerin, one tablet sublingually every 30 minutes x 4 doses, with only transient relief. She describes the pain as a constant moderate to severe heaviness in her substernal and left chest with radiation to her left axilla and down her left arm. The pain was accompanied by nausea and dyspnea. She denies other associated or accompanying signs and symptoms. She admits numerous prior similar episodes related to her coronary artery disease. She has not identified any additional aggravating or kendra liorating factors for her chest pain. In the emergency room she was found to have an EKG and cardiac enzymes which showed no evidence of acute myocardial ischemia or injury. She was subsequently admitted to the hospital on observation status for further evaluation treatment. 01/22/2019. No acute events overnight, patient is stating that she is still having on and off chest pain, left-sided, pressure-like, 4/5, stress test was canceled again because of chest pain. Patient is more awake and alert and cooperative with physical examination. Apart from recurrent chest pain she denies any fever, chills, nausea, vomiting, diarrhea, constipation or any urinary symptoms. 01/23/2019. Patient still complaining on and off chest pain, pressure-like left- sided, nuclear stress test canceled pending cardiology recommendation,, denies any fever, chills, nausea, vomiting, diarrhea, constipation or any urinary symptoms. Reason For Visit: CHEST PAIN Physical Exam Vital Signs: Temp Pulse Resp BP Pulse Ox 98.2 F 86 18 108/57 L 90 L 01/23/19 15:08 01/23/19 15:08 01/23/19 15:08 01/23/19 15:08 01/23/19 15:08 Pulse Oximeter Continuous Start: 01/21/19 01:07 Freq: RTQ4 Status: Complete Protocol: Document 01/23/19 00:15 [facility] (Rec: 01/23/19 01:17 [facility] [id number]) Pulse Oximetry Assessment Oxygen Saturation (92-100) 95 Oxygen Flow Rate (L/min) 1 Oxygen Delivery Method Nasal Cannula Fraction of Inspired Oxygen (FIO2) 24 Equipment Usage Equipment in Use Continuous Pulse Oximeter 24 Hour Charge Charge Now Continuous SpO2 Machine # N-[id number] Intake & Output 01/22/19 01/23/19 01/24/19 06:59 06:59 06:59 Intake Total 480 542 Output Total 1000 Balance 480 -458 Weight 101.7 kg 102.5 kg General appearance: PRESENT: morbidly obese Head exam: PRESENT: atraumatic, normocephalic Respiratory exam: PRESENT: clear to auscultation scotty. ABSENT: rales, rhonchi, wheezes Cardiovascular exam: PRESENT: RRR. ABSENT: diastolic murmur, rubs, systolic murmur GI/Abdominal exam: PRESENT: normal bowel sounds, soft. ABSENT: distended, guarding, mass, organolmegaly, rebound, tenderness Neurological exam: PRESENT: alert, awake, oriented to person, oriented to place, oriented to time, oriented to situation, CN II-XII grossly intact. ABSENT: motor sensory deficit Results Laboratory Results: 01/19/19 22:58 01/23/19 06:29 01/23/19 06:29 Sodium 139.6 Potassium 4.3 Chloride 102 Carbon Dioxide 33 H Anion Gap 5 BUN 8 Creatinine 0.88 Est GFR ( Amer) > 60 Glucose 85 Calcium 8.6 01/19/19 01/19/19 01/20/19 22:58 22:58 02:34 Creatine Kinase 28 L CK-MB (CK-2) Troponin I < 0.012 < 0.012 01/20/19 01/20/19 01/20/19 08:52 08:52 10:53 Creatine Kinase 22 L CK-MB (CK-2) < 0.22 Troponin I Cancelled < 0.012 01/20/19 01/20/19 01/20/19 14:30 14:50 21:10 Creatine Kinase 25 L 21 L CK-MB (CK-2) < 0.22 Troponin I < 0.012 01/20/19 21:10 Creatine Kinase CK-MB (CK-2) < 0.22 Troponin I < 0.012 Impressions: Chest X-Ray 01/19/19 20:18 IMPRESSION: 1. No acute pulmonary findings. Esophagus X-Ray 01/23/19 00:00 IMPRESSION: Abnormal stomach. Post gastric bypass with Mirna loop. Aberrant communication between the fundal pouch/proximal Mirna loop and remainder of the stomach through a distorted irregular channel, possibly from chronic peptic disease and ulceration. Barium passes through the fundal pouch and into the efferrent loop and gastric antrum/pylorus region without delay. Assessment and Plan - Diagnosis (1) Chest pain Qualifiers: Chest pain type: unspecified Qualified Code(s): R07.9 - Chest pain, unspecified Is this a current diagnosis for this admission?: Yes Plan: Still complaining of persistent chest pain, 4/5, pressure-like, left lower chest, and left upper abdomen, by nitroglycerin. Troponins negative x4 EKG no acute changes. Cardiolite cardiac stress test scheduled but had to be consulted yesterday and today as patient having ongoing persistent chest pain. On 01/22/[address] Hernandez and discussed the case with him, he asked me to to cancel nuclear stress test and get a barium swallow study to rule out any esophageal abnormality causing her chest pain, and he will see her on 01/03/2019. Unfortunately due to his busy schedule he has not been able to see patient yet, primary nurse called him and reminded him of the consult and he stated he will see her tomorrow on 01/24/2019. Continue telemetry, antiplatelets, blockers, JENNIFER, sublingual nitroglycerin, morphine. (2) CAD (coronary artery disease), [place] coronary artery Qualifiers: [place] vs. transplanted heart: [place] heart Associated angina: with unspecified angina Qualified Code(s): I25.119 - Atherosclerotic heart disease of [place] coronary artery with unspecified angina pectoris Is this a current diagnosis for this admission?: Yes Plan: Status post 2 stent placement x2 years. Continue Plavix, beta-blockers, statins, JENNIFER. Outpatient cardiology follow-up. (3) Gastroesophageal reflux disease with esophagitis Is this a current diagnosis for this admission?: Yes Plan: Continue PPIs. Avoid NSAIDs. H&H stable. Barium swallow did not reveal any cause of his esophageal abnormalities except for gastric changes caused by history of gastric bypass. Denies any hematemesis, melena or hematochezia. Outpatient PCP gastroenterology follow-up. Patient may need GI endoscopy in future. (4) Obesity (BMI 30-39.9) Is this a current diagnosis for this admission?: Yes Plan: Diet and lifestyle modification recommended. Thyroid function test WNL. (5) Depression Is this a current diagnosis for this admission?: Yes Plan: Chronic. On multiple antidepressant and antipsychotics. Patient very somnolent most of the time. Denies any homicidal or suicidal ideation. Restart home medications at a lower dose to avoid excessive somnolence. Outpatient PCP and psychiatry follow-up. (6) Somnolence Is this a current diagnosis for this admission?: Yes Plan: Much improved. Patient more alert and cooperative with physical examination. Had a discussion about taking too many antipsychotics and antidepressants. Patient lives in [place], [facility], stating that she sees a psychiatrist and PCP who both have prescribed her below medications. Patient's home medications are Hydroxyzine 25 mg every 8 as needed. Duloxetine 60 mg p.o. twice daily. Trazodone 300 mg p.o. nightly. Amitriptyline 100 mg p.o. nightly. Gabapentin 800 mg p.o. twice daily. [place] 1 tab every 4 hours as needed. Seroquel 200 mg p.o. nightly. Seroquel 50 mg p.o. twice daily. Soma 350 mg p.o. every 8 hours as needed. Diazepam 10 mg p.o. twice daily PRN. To avoid withdrawal and reduce excessive somnolence will restart home meds at the lower dosage. Continue Seroquel 100 mg p.o. nightly, amitriptyline 50 mg p.o. nightly, duloxetine mg p.o. twice daily, trazodone 150 mg nightly. Patient's medications need to be reconciled by psychiatry and PCP. Strongly advised patient to follow-up with PCP and psychiatry for reconciliation of her meds. I have informed patient that I have cut down on her medications due to excessive somnolence and would like her to continue this regimen until seen by her psychiatrist. Patient agreed.
[2019-01-23] MEDS: TRAZODONE HCL 50 MG TABLET PO SCH (21:30)
[2019-01-23] MEDS: QUETIAPINE FUMARATE 100 MG TABLET PO SCH (21:30)
[2019-01-23] MEDS: AMITRIPTYLINE HCL 50 MG TABLET PO SCH (21:30)
[2019-01-23] MEDS: SIMVASTATIN 10 MG TABLET PO SCH (21:30)
[2019-01-24] MEDS: HEPARIN SOD (PORCINE) 5,000 UNIT/ML 1 ML VIAL SUBCUT SCH ×3 (05:31→22:53)
[2019-01-24] MEDS: PANTOPRAZOLE SODIUM 40 MG TABLET.DR PO SCH ×2 (06:20→17:23)
[2019-01-24] MEDS: MORPHINE SULFATE 10 MG/ML INJ IV PRN ×3 (06:20→13:29)
[2019-01-24] MEDS: SUCRALFATE 1 GM TABLET PO SCH ×4 (08:12→22:53)
[2019-01-24] MEDS: METOCLOPRAMIDE HCL 10 MG TABLET PO SCH ×4 (08:12→22:53)
[2019-01-24] MEDS: CLOPIDOGREL BISULFATE 75 MG TABLET PO SCH (11:19)
[2019-01-24] MEDS: DOCUSATE SODIUM 100 MG CAPSULE PO SCH ×2 (11:20→17:28)
[2019-01-24] MEDS: DULOXETINE HCL 30 MG CAPSULE.DR PO SCH ×2 (11:20→22:53)
--- NOTE | 2019-01-24 16:09 | PDOC PROGRESS REPORT ---
Subjective Progress Note for:: 01/24/19 Subjective:: DWIGHT MURPHY is a 53 year old female who presented to the emergency room with acute chest pain. She admits developing chest pain about 1:30 p.m. which persisted until about 4:30 p.m. when she noted the pain to abruptly become more severe. She began taking nitroglycerin, one tablet sublingually every 30 minutes x 4 doses, with only transient relief. She describes the pain as a constant moderate to severe heaviness in her substernal and left chest with radiation to her left axilla and down her left arm. The pain was accompanied by nausea and dyspnea. She denies other associated or accompanying signs and symptoms. She admits numerous prior similar episodes related to her coronary artery disease. She has not identified any additional aggravating or kendra liorating factors for her chest pain. In the emergency room she was found to have an EKG and cardiac enzymes which showed no evidence of acute myocardial ischemia or injury. She was subsequently admitted to the hospital on observation status for further evaluation treatment. 01/22/2019. No acute events overnight, patient is stating that she is still having on and off chest pain, left-sided, pressure-like, 4/5, stress test was canceled again because of chest pain. Patient is more awake and alert and cooperative with physical examination. Apart from recurrent chest pain she denies any fever, chills, nausea, vomiting, diarrhea, constipation or any urinary symptoms. 01/23/2019. Patient still complaining on and off chest pain, pressure-like left- sided, nuclear stress test canceled pending cardiology recommendation,, denies any fever, chills, nausea, vomiting, diarrhea, constipation or any urinary symptoms. 01/24/2019. Still complaining of intermittent chest pain, has been evaluated by Dr. Hernandez who thinks it is not cardiac pain and patient can follow-up with Dr. Barrientos at [place]. Since admission patient has been very somnolent likely due to excessive antipsychotic and SSRIs. I have decreased the dosages hope of improving her somnolence however patient still sleeping most of the day, and appears somnolent, and today she was noted to be tachycardic and hypoxic. Patient lives in [place] and after discharge she is planning to drive to [place], when asked if she will be able to drive to [place] she states she is not sure as she feels sleepy. She states tomorrow she will have somebody drive her back to home. I am concerned patient may have developed atelectasis or even PE due staying in bed for prolonged times during her DVT prophylaxis and polypharmacy. Patient was encouraged to be more active and ambulate and provided with incentive spirometry. If her hypoxia and tachycardia does not improve we will get a CTA to rule out PE. I believe patient should be dis charged tomorrow as it would not be safe for her to be driving by herself while being somnolent. Reason For Visit: CHEST PAIN Physical Exam Vital Signs: Temp Pulse Resp BP Pulse Ox 98.5 F 122 H 18 93/78 L 93 01/24/19 07:54 01/24/19 08:01 01/24/19 08:01 01/24/19 08:01 01/24/19 08:01 Pulse Oximeter Continuous Start: 01/21/19 01:07 Freq: RTQ4 Status: Complete Protocol: Document 01/23/19 00:15 [facility] (Rec: 01/23/19 01:17 [facility] [id number]) Pulse Oximetry Assessment Oxygen Saturation (92-100) 95 Oxygen Flow Rate (L/min) 1 Oxygen Delivery Method Nasal Cannula Fraction of Inspired Oxygen (FIO2) 24 Equipment Usage Equipment in Use Continuous Pulse Oximeter 24 Hour Charge Charge Now Continuous SpO2 Machine # [id number] Intake & Output 01/23/19 01/24/19 01/25/19 06:59 06:59 06:59 Intake Total 542 906 Output Total 1000 Balance -458 906 Weight 102.5 kg 98.2 kg General appearance: PRESENT: no acute distress, mild distress, well-developed, well-nourished Head exam: PRESENT: atraumatic, normocephalic Respiratory exam: PRESENT: clear to auscultation scotty. ABSENT: rales, rhonchi, wheezes Cardiovascular exam: PRESENT: RRR, tachycardia. ABSENT: diastolic murmur, rubs, systolic murmur Vascular exam: PRESENT: normal capillary refill GI/Abdominal exam: PRESENT: normal bowel sounds, soft. ABSENT: distended, guarding, mass, organolmegaly, rebound, tenderness Neurological exam: PRESENT: alert, awake, oriented to person, oriented to place, oriented to time, oriented to situation, CN II-XII grossly intact. ABSENT: motor sensory deficit Psychiatric exam: PRESENT: depressed Results Laboratory Results: 01/19/19 22:58 01/23/19 06:29 01/19/19 01/19/19 01/20/19 22:58 22:58 02:34 Creatine Kinase 28 L CK-MB (CK-2) Troponin I < 0.012 < 0.012 01/20/19 01/20/19 01/20/19 08:52 08:52 10:53 Creatine Kinase 22 L CK-MB (CK-2) < 0.22 Troponin I Cancelled < 0.012 01/20/19 01/20/19 01/20/19 14:30 14:50 21:10 Creatine Kinase 25 L 21 L CK-MB (CK-2) < 0.22 Troponin I < 0.012 01/20/19 21:10 Creatine Kinase CK-MB (CK-2) < 0.22 Troponin I < 0.012 Impressions: Chest X-Ray 01/19/19 20:18 IMPRESSION: 1. No acute pulmonary findings. Esophagus X-Ray 01/23/19 00:00 IMPRESSION: Abnormal stomach. Post gastric bypass with Mirna loop. Aberrant communication between the fundal pouch/proximal Mirna loop and remainder of the stomach through a distorted irregular channel, possibly from chronic peptic disease and ulceration. Barium passes through the fundal pouch and into the efferrent loop and gastric antrum/pylorus region without delay. Assessment and Plan - Diagnosis (1) Chest pain Qualifiers: Chest pain type: unspecified Qualified Code(s): R07.9 - Chest pain, unspecified Is this a current diagnosis for this admission?: Yes Plan: Still complaining of intermittent chest pain, 2/5, pressure-like, left lower chest, and left upper abdomen, by nitroglycerin. Troponins negative x4 EKG no acute changes. Cardiolite cardiac stress test scheduled but had to be consulted yesterday and today as patient having ongoing persistent chest pain. Dr. Hernandez has evaluated patient and thinks her chest pain is not cardiac and patient can be discharged to follow-up with Dr. Barrientos and neurology. Continue telemetry, antiplatelets, blockers, JENNIFER, sublingual nitroglycerin, morphine. (2) CAD (coronary artery disease), [place] coronary artery Qualifiers: [place] vs. transplanted heart: [place] heart Associated angina: with unspecified angina Qualified Code(s): I25.119 - Atherosclerotic heart disease of [place] coronary artery with unspecified angina pectoris Is this a current diagnosis for this admission?: Yes Plan: Status post 2 stent placement x2 years. Continue Plavix, beta-blockers, statins, JENNIFER. Outpatient cardiology follow-up. (3) Gastroesophageal reflux disease with esophagitis Is this a current diagnosis for this admission?: Yes Plan: Continue PPIs. Avoid NSAIDs. H&H stable. Barium swallow did not reveal any cause of his esophageal abnormalities except for gastric changes caused by history of gastric bypass. Denies any hematemesis, melena or hematochezia. Outpatient PCP gastroenterology follow-up for after EGD. (4) Obesity (BMI 30-39.9) Is this a current diagnosis for this admission?: Yes Plan: Diet and lifestyle modification recommended. Thyroid function test WNL. (5) Depression Is this a current diagnosis for this admission?: Yes Plan: Chronic. On multiple antidepressant and antipsychotics. Patient very somnolent most of the time. Denies any homicidal or suicidal ideation. Restart home medications at a lower dose to avoid excessive somnolence. Outpatient PCP and psychiatry follow-up. (6) Somnolence Is this a current diagnosis for this admission?: Yes Plan: Much improved since admission but still appears somnolent. Patient more alert and cooperative with physical examination. Had a discussion about taking too many antipsychotics and antidepressants. Patient lives in [facility], stating that she sees a psychiatrist and PCP who both have prescribed her below medications. Patient's home medications are Hydroxyzine 25 mg every 8 as needed. Duloxetine 60 mg p.o. twice daily. Trazodone 300 mg p.o. nightly. Amitriptyline 100 mg p.o. nightly. Gabapentin 800 mg p.o. twice daily. [place] 1 tab every 4 hours as needed. Seroquel 200 mg p.o. nightly. Seroquel 50 mg p.o. twice daily. Soma 350 mg p.o. every 8 hours as needed. Diazepam 10 mg p.o. twice daily PRN. To avoid withdrawal and reduce excessive somnolence will restart home meds at the lower dosage. Continue Seroquel 100 mg p.o. nightly, amitriptyline 50 mg p.o. nightly, duloxetine mg p.o. twice daily, trazodone 150 mg nightly. Patient's medications need to be reconciled by psychiatry and PCP. Strongly advised patient to follow-up with PCP and psychiatry for reconciliation of her meds. I have informed patient that I have cut down on her medications due to excessive somnolence and would like her to continue this regimen until seen by her psychiatrist. Patient agreed.
[2019-01-24] MEDS ORDERED: MORPHINE SULFATE 10 MG/ML INJ IV PRN (18:32)
[2019-01-24] MEDS: TRAMADOL HCL 50 MG TABLET PO PRN (20:17)
--- NOTE | 2019-01-24 22:27 | PDOC CONSULTATION ---
Consultation-Blank Consultation: CARDIOLOGY CONSULTATION by Dr. Solange Hernandez on 01/24/2019. Patient seen at 12:30 PM on 928/201 9. Extremity spent on this patient with more than 50% of time spent in direct patient care. REASON FOR CONSULTATION: Chest pain intermittent. CONSULT REQUESTING PHYSICIAN: Dr. Manzo, [facility]. History OF PRESENT ILLNESS: Patient is a 53-year-old female with significant history of depression, who states that a few years ago she had a stent in unknown vessel, without any history of NM. The patient states that she came to the hospital because she was having sharp chest pain which lasted few seconds and recurs. It is not related to exertion. On further questioning the patient denies that he mentally that she had any chest pressure all she had was chest pain which is sharp in nature. This was repeatedly asked by me since the admission history and physical state that the patient had chest pain, which states that the patient described chest pressure. There is no associated symptoms. But again the patient after repeated questioning states that she had sharp pains lasting few seconds at a time. She has had intermittent such pains during this admission and hence her stress test was not done. The stress test was not done because I was told that the patient has chest pain. If I had known that the patient had this atypical noncardiac chest pain which is sharp lasting few seconds out of perform the stress test. I was not consulted at that time. In view of the patient's repeated chest pain complaints I have been consulted and I saw the patient today. There is no shortness of breath. The patient appears to be somnolent and O2 sats 87%. She is very sedentary by nature and also this admission is been bedridden. She is receiving Lovenox for DVT prophylaxis. And there is no signs of DVT, but would recommend that the patient have pulmonary CT angiogram to make sure that there is no major lung pathology including presence of pulmonary embolism. She has no history of diabetes mellitus. No history of COPD or asthma or sleep apnea. The patient has a history of depression which seems to be quite severe. She is on multiple psych medications. There is no history of NM in the past. There is no history of TIA or CVA. Past Medical History Cardiac Medical History: Reports: Coronary Artery Disease Denies: Atrial Fibrillation, Congestive Heart Failure, Myocardial Infarction, Hyperlipidema, Hypertension Pulmonary Medical History: Denies: Asthma, Chronic Obstructive Pulmonary Disease (COPD) EENT Medical History: Denies: Cataracts, Ears - Hearing aids Neurological Medical History: Denies: Hemorrhagic CVA, Ischemic CVA, Seizures Endocrine Medical History: Reports: Obesity Denies: Diabetes Mellitus Type 1, Diabetes Mellitus Type 2, Hyperthyroidism, Hypothyroidism Renal/ Medical History: Denies: Chronic Kidney Disease, Nephrolithiasis Malignancy Medical History: Reports: None GI Medical History: Reports: Gastroesophageal Reflux Disease Denies: Cirrhosis, Crohn's Disease, Hepatitis, Ulcerative Colitis Musculoskeltal Medical History: Denies: Arthritis, Gout Skin Medical History: Denies: Eczema, Psoriasis Psychiatric Medical History: Reports: Depression Denies: Alcohol Dependency, Substance Abuse, Tobacco Dependency Traumatic Medical History: Reports: None Hematology: Denies: Anemia, Bleeding Tendencies Infectious Medical History: Reports: None Past Surgical History Past Surgical History: Reports: Cardiac Catheterization, Section, Cholecystectomy, Coronary Stent - X 2, Tonsillectomy Social History Information Source: Patient Lives with: Spouse/Significant other Smoking Status: Never Smoker Frequency of Alcohol Use: None Hx Recreational Drug Use: No Drugs: None Hx Prescription Drug Abuse: No - Advance Directive Resuscitation Status: Full Code Surrogate healthcare decision maker:: Mina Martinez Family History: CAD. denies: DM, Hyperlipidemia, Hypertension, Malignancy Medication/Allergy Allergies/Adverse Reactions: NSAIDS . Review of Systems Constitutional: ABSENT: chills, fever(s) Eyes: ABSENT: visual disturbances, other - Eye pain Ears: ABSENT: hearing changes, other - Ear pain Nose, Mouth, and Throat: ABSENT: mouth pain, sore throat Cardiovascular: PRESENT: as per HPI, chest pain, dyspnea on exertion. ABSENT: edema, orthropnea, palpitations Respiratory: PRESENT: dyspnea. ABSENT: cough Gastrointestinal: PRESENT: as per HPI, nausea. ABSENT: abdominal pain, constipation, diarrhea, vomiting Genitourinary: ABSENT: dysuria, hematuria Musculoskeletal: ABSENT: back pain, joint swelling, muscle weakness Integumentary: ABSENT: pruritus, rash Neurological: ABSENT: confusion, convulsions, focal weakness, memory loss, syncope Psychiatric: ABSENT: anxiety, depression Endocrine: ABSENT: cold intolerance, heat intolerance Hematologic/Lymphatic: ABSENT: easy bleeding, easy bruising Allergic/Immunologic: ABSENT: seasonal rhinorrhea Current Medications Generic Name Dose Route Start Last Admin Trade Name Freq PRN Reason Stop Dose Admin Al Hydrox/Mg Hydrox/Simethicone 30 ml 01/20/19 03:47 Maalox Plus Susp 30 Udcup PO 02/19/19 03:46 Q6HP PRN HEARTBURN Amitriptyline HCl 50 mg 01/21/19 22:00 01/23/19 21:30 Elavil 50 Mg Tablet PO 02/20/19 21:59 50 mg QHS DONNIE Administration Clopidogrel Bisulfate 75 mg 01/20/19 12:45 01/24/19 11:19 Plavix 75 Mg Tablet PO 02/19/19 12:44 75 mg DAILY DONNIE Administration Docusate Sodium 100 mg 01/20/19 10:00 01/24/19 17:28 Colace 100 Mg Capsule PO 02/19/19 09:59 Not Given BID DONNIE Duloxetine HCl 60 mg 01/20/19 12:45 01/24/19 11:20 Cymbalta 30 Mg Capsule.Dr PO 02/19/19 12:44 60 mg Q12 DONNIE Administration Heparin Sodium (Porcine) 5,000 unit 01/20/19 06:00 01/24/19 13:27 Heparin Inj 5,000 Units/Ml 1 Ml Vial SUBCUT 02/19/19 05:59 Not Given Q8 DONNIE Hydroxyzine HCl 25 mg 01/20/19 12:27 Atarax 10 Mg Tablet PO 02/19/19 12:26 Q8HP PRN ANXIETY Magnesium Hydroxide 30 ml 01/20/19 03:47 01/22/19 17:59 Milk Of Magnesia 30 Ml Udcup PO 02/19/19 03:46 30 ml HSP PRN Administration FOR CONSTIPATION Metoclopramide HCl 10 mg 01/20/19 08:00 01/24/19 17:24 Reglan 10 Mg Tablet PO 02/19/19 07:59 10 mg ACHS DONNIE Administration Morphine Sulfate 1 mg 01/24/19 18:32 Morphine 10 Mg/Ml Inj IV 01/31/19 18:31 Q6HP PRN FOR PAIN SCALE 4-5 Nitroglycerin 1 tab 01/19/19 20:28 Nitrostat 0.4 Mg (1/150 Gr) Tabs 25/Bottle SL 02/18/19 20:27 Q5MP PRN FOR CHEST PAIN Ondansetron HCl 4 mg 01/20/19 03:53 01/23/19 18:44 Zofran Inj/Pf 4 Mg/2 Ml Sdv IV 02/19/19 03:52 4 mg Q4HP PRN Administration FOR NAUSEA/VOMITING Pantoprazole Sodium 40 mg 01/21/19 17:00 01/24/19 17:[address] Tablet PO 02/20/19 16:59 40 mg BID@0600,1700 DONNIE Administration Quetiapine Fumarate 100 mg 01/20/19 22:00 01/23/19 21:30 Seroquel 100 Mg Tablet PO 02/19/19 21:59 100 mg QHS DONNIE Administration Simvastatin 20 mg 01/20/19 22:00 01/23/19 21:30 Zocor 10 Mg Tablet PO 02/19/19 21:59 20 mg QHS DONNIE Administration Sucralfate 1 gm 01/20/19 08:00 01/24/19 17:23 Carafate 1 Gm Tablet PO 02/19/19 07:59 1 gm ACHS DONNIE Administration Tramadol HCl 50 mg 01/24/19 18:31 01/24/19 20:17 Ultram 50 Mg Tablet PO 01/31/19 18:30 50 mg Q8HP PRN Administration FOR PAIN SCALE 3-5 Trazodone HCl 150 mg 01/21/19 22:00 01/23/19 21:30 Desyrel 50 Mg Tablet PO 02/20/19 21:59 150 mg QHS DONNIE Administration Discontinued Medications Generic Name Dose Route Start Last Admin Trade Name Freq PRN Reason Stop Dose Admin Acetaminophen 650 mg 01/20/19 03:47 Tylenol 325 Mg Tablet PO 02/19/19 03:46 Q4HP PRN For headache, pain or fever Amitriptyline HCl 100 mg 01/20/19 22:00 01/20/19 22:11 Elavil 50 Mg Tablet PO 02/19/19 21:59 100 mg QHS DONNIE Administration Diazepam 10 mg 01/20/19 12:26 01/20/19 22:11 Valium 5 Mg Tablet PO 01/27/19 12:25 10 mg Q12HP PRN Administration ANXIETY Famotidine 10 mg 01/20/19 08:00 01/21/19 16:00 Pepcid 20 Mg Tablet PO 02/19/19 07:59 Not Given ACHS DONNIE Sodium Chloride 1,000 mls @ 0 mls/hr 01/19/19 20:29 01/19/19 23:40 Nacl 0.9% 1000 Ml Iv Soln IV 01/19/19 20:30 Infused BOLUS ONE Infusion Wide Open Sodium Chloride 1,000 mls @ 0 mls/hr 01/20/19 06:30 01/20/19 08:09 Nacl 0.9% 1000 Ml Iv Soln IV 01/20/19 06:31 Infused BOLUS ONE Infusion Sodium Chloride 1,000 mls @ 80 mls/hr 01/20/19 15:34 01/21/19 05:51 Nacl 0.9% 1000 Ml Iv Soln IV 02/19/19 15:33 80 mls/hr CONTINUOUS PRN Administration THIS MED IS NOT "PRN" Morphine Sulfate 2 mg 01/19/19 22:43 01/19/19 22:48 Morphine 10 Mg/Ml Inj IV 01/19/19 22:44 2 mg NOW ONE Administration Morphine Sulfate 2 mg 01/20/19 04:11 01/24/19 13:29 Morphine 10 Mg/Ml Inj IV 01/27/19 04:10 2 mg Q2HP PRN Administration PAIN SCALE 1-2/5 Morphine Sulfate 3 mg 01/20/19 04:11 01/21/19 14:26 Morphine 10 Mg/Ml Inj IV 01/27/19 04:10 3 mg Q2HP PRN Administration PAIN SCALE 3-4/5 Morphine Sulfate 4 mg 01/20/19 04:11 Morphine 10 Mg/Ml Inj IV 01/27/19 04:10 Q2HP PRN PAIN SCALE 5/5 Nitroglycerin 1 gm 01/20/19 06:00 01/20/19 06:14 Nitrol 2% Ointment 1gm Packet TP 02/19/19 05:59 Not Given Q6 DONNIE Ondansetron HCl 4 mg 01/19/19 22:43 01/19/19 22:47 Zofran Inj/Pf 4 Mg/2 Ml Sdv IV 01/19/19 22:44 4 mg NOW ONE Administration Quetiapine Fumarate 50 mg 01/20/19 18:00 Seroquel 25 Mg Tablet PO 02/19/19 17:59 BID DONNIE Quetiapine Fumarate 200 mg 01/20/19 22:00 Seroquel 100 Mg Tablet PO 02/19/19 21:59 QHS DONNIE Sodium Chloride 2.5 ml 01/20/19 06:00 01/21/19 14:27 Saline Flush 2.5 Ml Monoject Prefil Syrin IV 02/19/19 05:59 2.5 ml Q8 DONNIE Administration PHYSICAL EXAMINATION: The patient is moderately obese. She is at present slightly somnolent and her O2 sats is slightly down. The patient encouraged to take deep breaths when her O2 sats did come up. Selected Entries 01/24/19 12:21 Temperature 98.5 F Temperature Oral Source Pulse Rate 91 Respiratory 16 Rate Blood Pressure 100/54 L Blood Pressure 69 Mean BP Location Left Arm BP Position Supine O2 Sat by Pulse 87 L Oximetry Oxygen Delivery Room Air Method HEAD: Is atraumatic normocephalic. EYES: Pupils equal round regular reactive to light accommodation. Extraocular movements are normal. There is no conjunctival pallor. There is no scleral icterus. EARS: Tympanic membranes are intact. External auditory canals are clear. NOSE: There is no inflammation of these mucous membrane. There is no deviated nasal septum. MOUTH: Mucous memories of mouth are moist. Tongue is moist there is no bleeding from the gums. THROAT: There is no redness of the oropharynx. There is no exudates. SKIN: There is no skin rashes. There is no petechia or ecchymosis. NECK: Is supple. There is no JVD. Carotids are equal there is no bruit there is no lymphadenopathy. There is no accessory muscles of respiration use. Trachea central. LUNGS: Is clear to auscultation percussion. There is no chest wall tenderness on palpation. HEART: S1-S2 is heard. There is no S3 gallop. There is no S4 gallop. Systolic murmur left sternal border and the apex there is no rub. ABDOMEN: Soft. There is no organomegaly. Bowel sounds well heard. EXTREMITIES: Femorals are deep. Femorals are diminished. Leg pulses are diminished. There is no pedal edema. There is no DVT or cellulitis. There is no cyanosis or clubbing. LOGISTICS AND PLANNING MANAGER pain: The patient is conscious slightly somnolent but with no focal deficits. Psychiatric the patient seems to have slow mentation. Labs- Entire Visit 01/19/19 01/19/19 01/19/19 22:25 22:58 22:58 WBC 7.0 RBC 3.75 Hgb 11.2 L Hct 32.5 L MCV 87 MCH 29.7 MCHC 34.3 RDW 14.2 H Plt Count 132 L Lymph % (Auto) 24.9 [place] % (Auto) 8.3 Eos % (Auto) 1.9 Baso % (Auto) 0.6 Absolute Neuts (auto) 4.5 Absolute Lymphs (auto) 1.7 Absolute Monos (auto) 0.6 Absolute Eos (auto) 0.1 Absolute Basos (auto) 0.0 Seg Neutrophils % 64.3 PT 14.0 INR 1.07 D-Dimer 0.63 H Sodium Potassium Chloride Carbon Dioxide Anion Gap BUN Creatinine Est GFR ( Amer) Est GFR (MDRD) Non-Af Glucose Calcium Magnesium Total Bilirubin Direct Bilirubin Neonat Total Bilirubin Neonat Direct Bilirubin Neonat Indirect Bili AST ALT Alkaline Phosphatase Creatine Kinase CK-MB (CK-2) Troponin I Total Protein Albumin Triglycerides Cholesterol LDL Cholesterol Direct VLDL Cholesterol HDL Cholesterol TSH Free T4 Free T3 pg/mL Urine Color YELLOW Urine Appearance SLIGHTLY-CLOUDY Urine pH 6.0 Ur Specific [place] 1.028 Urine Protein NEGATIVE Urine Glucose (UA) NEGATIVE Urine Ketones NEGATIVE Urine Blood NEGATIVE Urine Nitrite NEGATIVE Urine Bilirubin SMALL H Urine Urobilinogen 2.0 H Ur Leukocyte Esterase TRACE H Urine WBC (Auto) 16 Urine RBC (Auto) 4 Urine Bacteria (Auto) TRACE Squamous Epi Cells Auto 1 Amorphous Sediment Auto TRACE Urine Mucus (Auto) MOD Urine Ascorbic Acid NEGATIVE 01/19/19 01/19/19 01/20/19 22:58 22:58 02:34 WBC RBC Hgb Hct MCV MCH MCHC RDW Plt Count Lymph % (Auto) [place] % (Auto) Eos % (Auto) Baso % (Auto) Absolute Neuts (auto) Absolute Lymphs (auto) Absolute Monos (auto) Absolute Eos (auto) Absolute Basos (auto) Seg Neutrophils % PT INR D-Dimer Sodium 137.7 Potassium 3.6 Chloride 105 Carbon Dioxide 25 Anion Gap 8 BUN 15 Creatinine 0.89 Est GFR ( Amer) > 60 Est GFR (MDRD) Non-Af > 60 Glucose 94 Calcium 8.6 Magnesium Total Bilirubin 0.2 Direct Bilirubin 0.2 Neonat Total Bilirubin Not Reportable Neonat Direct Bilirubin Not Reportable Neonat Indirect Bili Not Reportable AST 30 ALT 14 Alkaline Phosphatase 113 Creatine Kinase 28 L CK-MB (CK-2) Troponin I < 0.012 < 0.012 Total Protein 6.4 Albumin 3.6 Triglycerides Cholesterol LDL Cholesterol Direct VLDL Cholesterol HDL Cholesterol TSH Free T4 Free T3 pg/mL Urine Color Urine Appearance Urine pH Ur Specific [place] Urine Protein Urine Glucose (UA) Urine Ketones Urine Blood Urine Nitrite Urine Bilirubin Urine Urobilinogen Ur Leukocyte Esterase Urine WBC (Auto) Urine RBC (Auto) Urine Bacteria (Auto) Squamous Epi Cells Auto Amorphous Sediment Auto Urine Mucus (Auto) Urine Ascorbic Acid 01/20/19 01/20/19 01/20/19 08:52 08:52 08:52 WBC RBC Hgb Hct MCV MCH MCHC RDW Plt Count Lymph % (Auto) [place] % (Auto) Eos % (Auto) Baso % (Auto) Absolute Neuts (auto) Absolute Lymphs (auto) Absolute Monos (auto) Absolute Eos (auto) Absolute Basos (auto) Seg Neutrophils % PT INR D-Dimer Sodium Potassium Chloride Carbon Dioxide Anion Gap BUN Creatinine Est GFR ( Amer) Est GFR (MDRD) Non-Af Glucose Calcium Magnesium 1.9 Total Bilirubin Direct Bilirubin Neonat Total Bilirubin Neonat Direct Bilirubin Neonat Indirect Bili AST ALT Alkaline Phosphatase Creatine Kinase 22 L CK-MB (CK-2) < 0.22 Troponin I Cancelled Total Protein Albumin Triglycerides 111 Cholesterol 113.78 LDL Cholesterol Direct 50 VLDL Cholesterol 22.0 HDL Cholesterol 46 TSH 2.94 Free T4 1.01 Free T3 pg/mL 3.25 Urine Color Urine Appearance Urine pH Ur Specific [place] Urine Protein Urine Glucose (UA) Urine Ketones Urine Blood Urine Nitrite Urine Bilirubin Urine Urobilinogen Ur Leukocyte Esterase Urine WBC (Auto) Urine RBC (Auto) Urine Bacteria (Auto) Squamous Epi Cells Auto Amorphous Sediment Auto Urine Mucus (Auto) Urine Ascorbic Acid 01/20/19 01/20/19 01/20/19 10:53 14:30 14:50 WBC RBC Hgb Hct MCV MCH MCHC RDW Plt Count Lymph % (Auto) [place] % (Auto) Eos % (Auto) Baso % (Auto) Absolute Neuts (auto) Absolute Lymphs (auto) Absolute Monos (auto) Absolute Eos (auto) Absolute Basos (auto) Seg Neutrophils % PT INR D-Dimer Sodium Potassium Chloride Carbon Dioxide Anion Gap BUN Creatinine Est GFR ( Amer) Est GFR (MDRD) Non-Af Glucose Calcium Magnesium Total Bilirubin Direct Bilirubin Neonat Total Bilirubin Neonat Direct Bilirubin Neonat Indirect Bili AST ALT Alkaline Phosphatase Creatine Kinase 25 L CK-MB (CK-2) < 0.22 Troponin I < 0.012 < 0.012 Total Protein Albumin Triglycerides Cholesterol LDL Cholesterol Direct VLDL Cholesterol HDL Cholesterol TSH Free T4 Free T3 pg/mL Urine Color Urine Appearance Urine pH Ur Specific [place] Urine Protein Urine Glucose (UA) Urine Ketones Urine Blood Urine Nitrite Urine Bilirubin Urine Urobilinogen Ur Leukocyte Esterase Urine WBC (Auto) Urine RBC (Auto) Urine Bacteria (Auto) Squamous Epi Cells Auto Amorphous Sediment Auto Urine Mucus (Auto) Urine Ascorbic Acid 01/20/19 01/20/19 01/22/19 21:10 21:10 05:48 WBC RBC Hgb Hct MCV MCH MCHC RDW Plt Count Lymph % (Auto) [place] % (Auto) Eos % (Auto) Baso % (Auto) Absolute Neuts (auto) Absolute Lymphs (auto) Absolute Monos (auto) Absolute Eos (auto) Absolute Basos (auto) Seg Neutrophils % PT INR D-Dimer Sodium 141.0 Potassium 4.0 Chloride 106 Carbon Dioxide 29 Anion Gap 6 BUN 8 Creatinine 0.84 Est GFR ( Amer) > 60 Est GFR (MDRD) Non-Af > 60 Glucose 80 Calcium 8.6 Magnesium 2.0 Total Bilirubin 0.2 Direct Bilirubin 0.2 Neonat Total Bilirubin Not Reportable Neonat Direct Bilirubin Not Reportable Neonat Indirect Bili Not Reportable AST 26 ALT 14 Alkaline Phosphatase 98 Creatine Kinase 21 L CK-MB (CK-2) < 0.22 Troponin I < 0.012 Total Protein 5.7 L Albumin 3.1 L Triglycerides Cholesterol LDL Cholesterol Direct VLDL Cholesterol HDL Cholesterol TSH Free T4 Free T3 pg/mL Urine Color Urine Appearance Urine pH Ur Specific [place] Urine Protein Urine Glucose (UA) Urine Ketones Urine Blood Urine Nitrite Urine Bilirubin Urine Urobilinogen Ur Leukocyte Esterase Urine WBC (Auto) Urine RBC (Auto) Urine Bacteria (Auto) Squamous Epi Cells Auto Amorphous Sediment Auto Urine Mucus (Auto) Urine Ascorbic Acid 01/23/19 06:29 WBC RBC Hgb Hct MCV MCH MCHC RDW Plt Count Lymph % (Auto) [place] % (Auto) Eos % (Auto) Baso % (Auto) Absolute Neuts (auto) Absolute Lymphs (auto) Absolute Monos (auto) Absolute Eos (auto) Absolute Basos (auto) Seg Neutrophils % PT INR D-Dimer Sodium 139.6 Potassium 4.3 Chloride 102 Carbon Dioxide 33 H Anion Gap 5 BUN 8 Creatinine 0.88 Est GFR ( Amer) > 60 Est GFR (MDRD) Non-Af > 60 Glucose 85 Calcium 8.6 Magnesium Total Bilirubin Direct Bilirubin Neonat Total Bilirubin Neonat Direct Bilirubin Neonat Indirect Bili AST ALT Alkaline Phosphatase Creatine Kinase CK-MB (CK-2) Troponin I Total Protein Albumin Triglycerides Cholesterol LDL Cholesterol Direct VLDL Cholesterol HDL Cholesterol TSH Free T4 Free T3 pg/mL Urine Color Urine Appearance Urine pH Ur Specific [place] Urine Protein Urine Glucose (UA) Urine Ketones Urine Blood Urine Nitrite Urine Bilirubin Urine Urobilinogen Ur Leukocyte Esterase Urine WBC (Auto) Urine RBC (Auto) Urine Bacteria (Auto) Squamous Epi Cells Auto Amorphous Sediment Auto Urine Mucus (Auto) Urine Ascorbic Acid Chest X-Ray 01/19/19 20:18 IMPRESSION: 1. No acute pulmonary findings. Esophagus X-Ray 01/23/19 00:00 IMPRESSION: Abnormal stomach. Post gastric bypass with Mirna loop. Aberrant communication between the fundal pouch/proximal Mirna loop and remainder of the stomach through a distorted irregular channel, possibly from chronic peptic disease and ulceration. Barium passes through the fundal pouch and into the efferrent loop and gastric antrum/pylorus region without delay. . EKG dated 01/16 9. SINUS RHYTHM [T0AN] . BORDERLINE T ABNORMALITIES, ANTERIOR LEADS EKG dated 01/16. SINUS RHYTHM [T0AN] . BORDERLINE T ABNORMALITIES, ANTERIOR LEADS [LQTB] . BORDERLINE PROLONGED QT INTERVAL IMPRESSION/RECOMMENDATION: 1. Patient with noncardiac intermittent chest pain no major EKG changes and multiple troponins are negative. Patient reassured. 2. Hypoxemia and somnolence shortness and chest pain. Would recommend getting a CT scan of the chest with contrast to make sure the patient has a pulmonary em boli. 3. Coronary artery disease. History of of stent in unknown coronary artery. Patient needs further cardiac follow-up with her control inspector in [place] since patient [place] in [place]. The problem is the patient has low blood pressure, precluding placing the patient on good medical therapy. Would recommend that the patient have a stress test with nuclear imaging. This can be done as an out patient. 4. Depression: This seems to be deep significant. Would recommend psychiatry psychiatric consultation, which can be done as an outpatient. Would recommend discharging the patient home if the abscess pulmonary CT angiogram is negative for PE. 60 minutes spent on this patient more than 50% of time spent in direct patient care. Will sign off note that medications and medical management has been discussed with the hospitalist attending.
[2019-01-24] MEDS: SIMVASTATIN 10 MG TABLET PO SCH (22:53)
[2019-01-24] MEDS: QUETIAPINE FUMARATE 100 MG TABLET PO SCH (22:53)
[2019-01-24] MEDS: AMITRIPTYLINE HCL 50 MG TABLET PO SCH (22:53)
[2019-01-24] MEDS: TRAZODONE HCL 50 MG TABLET PO SCH (22:53)
[2019-01-25] MEDS: HEPARIN SOD (PORCINE) 5,000 UNIT/ML 1 ML VIAL SUBCUT SCH ×3 (06:22→21:32)
[2019-01-25] MEDS: TRAMADOL HCL 50 MG TABLET PO PRN ×2 (06:22→15:00)
[2019-01-25] MEDS: PANTOPRAZOLE SODIUM 40 MG TABLET.DR PO SCH ×2 (06:23→16:00)
[2019-01-25] MEDS: METOCLOPRAMIDE HCL 10 MG TABLET PO SCH ×4 (07:41→21:37)
[2019-01-25] MEDS: SUCRALFATE 1 GM TABLET PO SCH ×4 (07:42→21:34)
[2019-01-25] MEDS: CLOPIDOGREL BISULFATE 75 MG TABLET PO SCH (09:16)
[2019-01-25] MEDS: DOCUSATE SODIUM 100 MG CAPSULE PO SCH ×2 (09:16→17:30)
[2019-01-25] MEDS: DULOXETINE HCL 30 MG CAPSULE.DR PO SCH ×2 (09:16→21:34)
[2019-01-25] MEDS: ONDANSETRON HCL INJ/PF 4 MG/2 ML SDV IV PRN (14:36)
[2019-01-25] MEDS ORDERED: IPRATROPIUM/ALBUTEROL 0.5-2.5 MG/3 ML AMPUL NEB ONE (16:15)
[2019-01-25] MEDS: MORPHINE SULFATE 10 MG/ML INJ IV PRN (17:06)
--- NOTE | 2019-01-25 17:33 | PDOC PROGRESS REPORT ---
Subjective Progress Note for:: 01/25/19 Subjective:: DWIGHT MURPHY is a 53 year old female who presented to the emergency room with acute chest pain. She admits developing chest pain about 1:30 p.m. which persisted until about 4:30 p.m. when she noted the pain to abruptly become more severe. She began taking nitroglycerin, one tablet sublingually every 30 minutes x 4 doses, with only transient relief. She describes the pain as a constant moderate to severe heaviness in her substernal and left chest with radiation to her left axilla and down her left arm. The pain was accompanied by nausea and dyspnea. She denies other associated or accompanying signs and symptoms. She admits numerous prior similar episodes related to her coronary artery disease. She has not identified any additional aggravating or kendra liorating factors for her chest pain. In the emergency room she was found to have an EKG and cardiac enzymes which showed no evidence of acute myocardial ischemia or injury. She was subsequently admitted to the hospital on observation status for further evaluation treatment. 01/22/2019. No acute events overnight, patient is stating that she is still having on and off chest pain, left-sided, pressure-like, 4/5, stress test was canceled again because of chest pain. Patient is more awake and alert and cooperative with physical examination. Apart from recurrent chest pain she denies any fever, chills, nausea, vomiting, diarrhea, constipation or any urinary symptoms. 01/23/2019. Patient still complaining on and off chest pain, pressure-like left- sided, nuclear stress test canceled pending cardiology recommendation,, denies any fever, chills, nausea, vomiting, diarrhea, constipation or any urinary symptoms. 01/24/2019. Still complaining of intermittent chest pain, has been evaluated by Dr. Hernandez who thinks it is not cardiac pain and patient can follow-up with Dr. Barrientos at [place]. Since admission patient has been very somnolent likely due to excessive antipsychotic and SSRIs. I have decreased the dosages hope of improving her somnolence however patient still sleeping most of the day, and appears somnolent, and today she was noted to be tachycardic and hypoxic. Patient lives in [place] and after discharge she is planning to drive to [place], when asked if she will be able to drive to [place] she states she is not sure as she feels sleepy. She states tomorrow she will have somebody drive her back to home. I am concerned patient may have developed atelectasis or even PE due staying in bed for prolonged times during her DVT prophylaxis and polypharmacy. Patient was encouraged to be more active and ambulate and provided with incentive spirometry. If her hypoxia and tachycardia does not improve we will get a CTA to rule out PE. I believe patient should be dis charged tomorrow as it would not be safe for her to be driving by herself while being somnolent. 01/25/2019. Patient was seen to be hypoxic yesterday, CTA chest was ordered but unfortunately because of lack of IV access it was canceled and a VQ scan was attempted, patient was taken downstairs for a VQ scan however her venous access did not work, study was half done and had to be canceled. Patient is still hypoxic on room air, otherwise in no apparent distress except for intermittent sharp/pressure-like left-sided chest pain. She is less somnolent but is still stays in bed most of the time even though I did encourage her to ambulate more often. A d-dimer was done to rule out any new DVT/PE. D-dimer is 0.59 which is lower than the d-dimer done on admission, bilateral lower extremity venous Doppler is also pending to rule out any DVTs. Patient states she was told she has COPD but has never been on home O2, she denies having any history of CHF, clinically she does not look volume overload. I have contacted town planner and she is working to see if she could be discharged home on home oxygen. Reason For Visit: CHEST PAIN Physical Exam Vital Signs: Temp Pulse Resp BP Pulse Ox 97.4 F 107 H 18 107/38 L 94 01/25/19 15:35 01/25/19 16:46 01/25/19 16:46 01/25/19 15:35 01/25/19 16:46 Pulse Oximeter Continuous Start: 01/21/19 01:07 Freq: RTQ4 Status: Complete Protocol: Document 01/23/19 00:15 [facility] (Rec: 01/23/19 01:17 [facility] [id number]) Pulse Oximetry Assessment Oxygen Saturation (92-100) 95 Oxygen Flow Rate (L/min) 1 Oxygen Delivery Method Nasal Cannula Fraction of Inspired Oxygen (FIO2) 24 Equipment Usage Equipment in Use Continuous Pulse Oximeter 24 Hour Charge Charge Now Continuous SpO2 Machine # [id number] Intake & Output 01/24/19 01/25/19 01/26/19 06:59 06:59 06:59 Intake Total 906 840 710 Balance 906 840 710 Weight 98.2 kg 102.2 kg General appearance: PRESENT: no acute distress, well-developed, well-nourished Head exam: PRESENT: atraumatic, normocephalic Neck exam: ABSENT: carotid bruit, JVD, lymphadenopathy, thyromegaly Respiratory exam: PRESENT: clear to auscultation scotty. ABSENT: rales, rhonchi, wheezes Cardiovascular exam: PRESENT: RRR. ABSENT: diastolic murmur, rubs, systolic murmur Pulses: PRESENT: normal dorsalis pedis pul GI/Abdominal exam: PRESENT: normal bowel sounds, soft. ABSENT: distended, guarding, mass, organolmegaly, rebound, tenderness Neurological exam: PRESENT: alert, awake, oriented to person, oriented to place, oriented to time, oriented to situation, CN II-XII grossly intact. ABSENT: motor sensory deficit Psychiatric exam: PRESENT: depressed, unusual affect Results Laboratory Results: 01/19/19 22:58 01/23/19 06:29 01/19/19 01/19/19 01/20/19 22:58 22:58 02:34 Creatine Kinase 28 L CK-MB (CK-2) Troponin I < 0.012 < 0.012 01/20/19 01/20/19 01/20/19 08:52 08:52 10:53 Creatine Kinase 22 L CK-MB (CK-2) < 0.22 Troponin I Cancelled < 0.012 01/20/19 01/20/19 01/20/19 14:30 14:50 21:10 Creatine Kinase 25 L 21 L CK-MB (CK-2) < 0.22 Troponin I < 0.012 01/20/19 21:10 Creatine Kinase CK-MB (CK-2) < 0.22 Troponin I < 0.012 Impressions: Chest X-Ray 01/19/19 20:18 IMPRESSION: 1. No acute pulmonary findings. Esophagus X-Ray 01/23/19 00:00 IMPRESSION: Abnormal stomach. Post gastric bypass with Mirna loop. Aberrant communication between the fundal pouch/proximal Mirna loop and remainder of the stomach through a distorted irregular channel, possibly from chronic peptic disease and ulceration. Barium passes through the fundal pouch and into the efferrent loop and gastric antrum/pylorus region without delay. Assessment and Plan - Diagnosis (1) Hypoxia Is this a current diagnosis for this admission?: Yes Plan: Patient noted to be hypoxic on room air otherwise in no apparent distress. Patient endorses history of COPD however state she has never been on oxygen before. She is afebrile, CBC, CMP WNL. No sign of pneumonia. Denies any cough. No wheezing or crackles on lung examination. She has been refusing her DVT prophylaxis and stays in bed most of the time even though I have been encouraging her to ambulate and be more active. I have cut down on most of her SSRIs and antipsychotics in the hope of making her less somnolent. Hypoxia may be due to atelectasis or even it could be DVT/PE. CTA was ordered but unfortunately could not be done due to lack of IV access. A VQ scan was attempted and stated but unfortunately could not be completed as her venous access failed. D-dimer 0.59 down from 0.63 on admission. Bilateral lower extremity venous Doppler negative for any DVT ABG: pH 7.41, PCO2 53.0, PO2 95.5 to 3 L nasal cannula. Given negative patients BMI >45, hypercarbia and hypoxia she likely has obesity hypoventilation syndrome. habitat conservation planner is working on getting patient home O2. Meanwhile I have been encouraging patient to ambulate more often, I have cut down on her antipsychotic meds, will get an ABG, incentive spirometry and flutter valve has been provided, DuoNeb's have been ordered. (2) Chest pain Qualifiers: Chest pain type: unspecified Qualified Code(s): R07.9 - Chest pain, unspecified Is this a current diagnosis for this admission?: Yes Plan: Still complaining of intermittent chest pain, 2/5, sharp/pressure-like, left lower chest, and left upper abdomen. Relieved only by morphine. Troponins negative x4 EKG no acute changes. Cardiolite cardiac stress test scheduled but had to be consulted yesterday and today as patient having ongoing persistent chest pain. Dr. Hernandez has evaluated patient and thinks her chest pain is not cardiac and patient can be discharged to follow-up with Dr. Barrientos and neurology. Continue telemetry, antiplatelets, blockers, JENNIFER, sublingual nitroglycerin, morphine. We will try to avoid morphine as patient has resolved blood pressures, most of the time SBP running in the 90s. (3) CAD (coronary artery disease), [place] coronary artery Qualifiers: [place] vs. transplanted heart: [place] heart Associated angina: with unspecified angina Qualified Code(s): I25.119 - Atherosclerotic heart disease of [place] coronary artery with unspecified angina pectoris Is this a current diagnosis for this admission?: Yes Plan: Status post 2 stent placement x2 years. Continue Plavix, beta-blockers, statins, JENINFER. Outpatient cardiology follow-up. (4) Gastroesophageal reflux disease with esophagitis Is this a current diagnosis for this admission?: Yes Plan: Continue PPIs. Avoid NSAIDs. H&H stable. Barium swallow did not reveal any cause of his esophageal abnormalities except for gastric changes caused by history of gastric bypass. Denies any hematemesis, melena or hematochezia. Outpatient PCP gastroenterology follow-up for after EGD. (5) Obesity (BMI 30-39.9) Is this a current diagnosis for this admission?: Yes Plan: Diet and lifestyle modification recommended. Thyroid function test WNL. (6) Depression Is this a current diagnosis for this admission?: Yes Plan: Chronic. Severe. On multiple antidepressant and antipsychotics. Patient very somnolent most of the time and prefers to stay in bed. Denies any homicidal or suicidal ideation. Restart home medications at a lower dose to avoid excessive somnolence. Outpatient PCP and psychiatry follow-up. (7) Somnolence Is this a current diagnosis for this admission?: Yes Plan: Much improved since admission but still appears somnolent. Patient more alert and cooperative with physical examination. Had a discussion about taking too many antipsychotics and antidepressants. Patient lives in [facility], stating that she sees a psychiatrist and PCP who both have prescribed her below medications. Patient's home medications are Hydroxyzine 25 mg every 8 as needed. Duloxetine 60 mg p.o. twice daily. Trazodone 300 mg p.o. nightly. Amitriptyline 100 mg p.o. nightly. Gabapentin 800 mg p.o. twice daily. [place] 1 tab every 4 hours as needed. Seroquel 200 mg p.o. nightly. Seroquel 50 mg p.o. twice daily. Soma 350 mg p.o. every 8 hours as needed. Diazepam 10 mg p.o. twice daily PRN. To avoid withdrawal and reduce excessive somnolence will restart home meds at the lower dosage. Continue Seroquel 100 mg p.o. nightly, amitriptyline 50 mg p.o. nightly, duloxetine mg p.o. twice daily, trazodone 150 mg nightly. Patient's medications need to be reconciled by psychiatry and PCP. Strongly advised patient to follow-up with PCP and psychiatry for reconciliation of her meds. I have informed patient that I have cut down on her medications due to excessive somnolence and would like her to continue this regimen until seen by her psychiatrist. Patient agreed.
--- NOTE | 2019-01-25 19:24 | RADIOLOGY REPORT (SQ) ---
EXAM DESCRIPTION: CHEST SINGLE VIEW COMPLETED DATE/TIME: 01/25/2019 7:10 pm REASON FOR STUDY: hypoxia COMPARISON: 01/19/2019 TECHNIQUE: Single frontal radiographic view of the chest acquired. NUMBER OF VIEWS: One view. LIMITATIONS: None. FINDINGS: LUNGS AND PLEURA: No pneumothorax. Increased airspace markings in the left lung base, malena ears platelike subsegmental atelectasis. No other airspace disease or significant Pleural effusion. MEDIASTINUM AND HILAR STRUCTURES: Stable. HEART AND VASCULAR STRUCTURES: Stable. BONES: No acute findings. HARDWARE: None in the chest. OTHER: No other significant finding. IMPRESSION: Increased airspace markings in the left lung base, appears platelike subsegmental atelec tasis. No other airspace disease or significant Pleural effusion. TECHNICAL DOCUMENTATION: JOB ID: [id number] [place]-72 2010 [employer]- All Rights Reserved Reading location - IP/workstation name: [email or web address]
[2019-01-25 19:29] LABS: ARTERIAL BLOOD BASE EXCESS 6.8 mmol/L; ARTERIAL BLOOD HCO3 32.7 mmol/L (20-24); ARTERIAL BLOOD O2 SATURATION 97.2 % (94-98); ARTERIAL BLOOD PH 7.41 (7.35-7.45); ARTERIAL BLOOD PO2 95.5 mmHg (80-100); ARTERIAL BLOOD TOTAL CO2 34.3 mmol/L (21-25)
[2019-01-25 19:30] LABS: ARTERIAL BLOOD FIO2 3L
[2019-01-25] MEDS: IPRATROPIUM/ALBUTEROL 0.5-2.5 MG/3 ML AMPUL NEB SCH (19:42)
--- NOTE | 2019-01-25 19:44 | XCELERA REPORT ---
[address] [address] Lower Extremity Venous Evaluation Procedure: Color flow and duplex imaging bilaterally of the veins of the lower extremities as well as the Common Femoral veins. Right Sided Venous Evaluation Normal vessel filling wall to wall, compression and augmentation as well as Colour flow down to the infrageniculate veins. Left Sided Venous Evaluation Normal vessel filling wall to wall, compression and augmentation as well as Colour flow down to the infrageniculate veins. Critical Findings Called in to Dr Espinoza at 1940. Interpretation Summary No duplex evidence of DVT or obstruction in the bilateral lower extremities. Name: DWIGHT MURPHY Age: 53 yrs Gender: Female : 1965 Patient Status: [facility] Study Date: 01/25/2019 05:07 PM Reason For Study: hypoxia Ordering Physician: GA MARKS Performed By: Maria Guadalupe Matos : GA MARKS > Aly Bashir
[2019-01-25] MEDS: TRAZODONE HCL 50 MG TABLET PO SCH (21:34)
[2019-01-25] MEDS: AMITRIPTYLINE HCL 50 MG TABLET PO SCH (21:34)
[2019-01-25] MEDS: QUETIAPINE FUMARATE 100 MG TABLET PO SCH (21:38)
[2019-01-25] MEDS: SIMVASTATIN 10 MG TABLET PO SCH (21:38)
[2019-01-26] MEDS: MORPHINE SULFATE 10 MG/ML INJ IV PRN (00:13)
[2019-01-26] MEDS: IPRATROPIUM/ALBUTEROL 0.5-2.5 MG/3 ML AMPUL NEB SCH ×4 (02:05→19:49)
[2019-01-26] MEDS: HEPARIN SOD (PORCINE) 5,000 UNIT/ML 1 ML VIAL SUBCUT SCH ×3 (05:28→22:54)
[2019-01-26] MEDS: PANTOPRAZOLE SODIUM 40 MG TABLET.DR PO SCH ×2 (05:31→17:03)
[2019-01-26] MEDS: TRAMADOL HCL 50 MG TABLET PO PRN ×2 (06:21→19:27)
--- NOTE | 2019-01-26 08:26 | RADIOLOGY REPORT (SQ) ---
EXAM DESCRIPTION: NM LUNG VENTILATION SCAN COMPLETED DATE/TIME: 01/26/2019 6:58 am REASON FOR STUDY: rule out PE COMPARISON: AP chest 01/19/2019 Upper GI 01/23/2019 RADIONUCLIDE AND DOSE: 29.5 millicuries TC-99m DTPA Inhaled aerosol TECHNIQUE: 6 views of the lungs acquired post ventilation of DTPA aerosol. The patient's IV infiltrated. No MAA was injected for perfusion scan. LIMITATIONS: None. FINDINGS: VENTILATION: Symmetric and homogeneous distribution of DTPA aerosol during ventilatory pha se. No significant areas of photopenia. PERFUSION: The patient's IV infiltrated. No MAA was injected for perfusion scan. OTHER: No other significant finding. IMPRESSION: NORMAL VENTILATION LUNG SCAN. The patient's IV infiltrated. No MAA was injected for perfusion scan. TECHNICAL DOCUMENTATION: JOB ID: [id number] [employer]- All Rights Reserved Reading location - IP/workstation name: [email or web address]
[2019-01-26] MEDS: DULOXETINE HCL 30 MG CAPSULE.DR PO SCH ×2 (09:15→22:52)
[2019-01-26] MEDS: METOCLOPRAMIDE HCL 10 MG TABLET PO SCH ×4 (09:15→22:53)
[2019-01-26] MEDS: CLOPIDOGREL BISULFATE 75 MG TABLET PO SCH (09:15)
[2019-01-26] MEDS: SUCRALFATE 1 GM TABLET PO SCH ×4 (09:16→22:54)
[2019-01-26] MEDS: DOCUSATE SODIUM 100 MG CAPSULE PO SCH ×2 (09:16→17:03)
[2019-01-26] MEDS: RANOLAZINE 500 MG TAB.SR.12H PO SCH ×2 (11:54→22:53)
[2019-01-26] MEDS ORDERED: HYDROXYZINE PAMOATE 25 MG CAPSULE PO PRN (12:05)
[2019-01-26] MEDS ORDERED: ONDANSETRON HCL INJ/PF 4 MG/2 ML SDV IV PRN (12:30)
--- NOTE | 2019-01-26 18:10 | PDOC PROGRESS REPORT ---
Subjective Progress Note for:: 01/26/19 Subjective:: DWIGHT MURPHY is a 53 year old female who presented to the emergency room with acute chest pain. She admits developing chest pain about 1:30 p.m. which persisted until about 4:30 p.m. when she noted the pain to abruptly become more severe. She began taking nitroglycerin, one tablet sublingually every 30 minutes x 4 doses, with only transient relief. She describes the pain as a constant moderate to severe heaviness in her substernal and left chest with radiation to her left axilla and down her left arm. The pain was accompanied by nausea and dyspnea. She denies other associated or accompanying signs and symptoms. She admits numerous prior similar episodes related to her coronary artery disease. She has not identified any additional aggravating or kendra liorating factors for her chest pain. In the emergency room she was found to have an EKG and cardiac enzymes which showed no evidence of acute myocardial ischemia or injury. She was subsequently admitted to the hospital on observation status for further evaluation treatment. 01/22/2019. No acute events overnight, patient is stating that she is still having on and off chest pain, left-sided, pressure-like, 4/5, stress test was canceled again because of chest pain. Patient is more awake and alert and cooperative with physical examination. Apart from recurrent chest pain she denies any fever, chills, nausea, vomiting, diarrhea, constipation or any urinary symptoms. 01/23/2019. Patient still complaining on and off chest pain, pressure-like left- sided, nuclear stress test canceled pending cardiology recommendation,, denies any fever, chills, nausea, vomiting, diarrhea, constipation or any urinary symptoms. 01/24/2019. Still complaining of intermittent chest pain, has been evaluated by Dr. Hernandez who thinks it is not cardiac pain and patient can follow-up with Dr. Barrientos at [place]. Since admission patient has been very somnolent likely due to excessive antipsychotic and SSRIs. I have decreased the dosages hope of improving her somnolence however patient still sleeping most of the day, and appears somnolent, and today she was noted to be tachycardic and hypoxic. Patient lives in [place] and after discharge she is planning to drive to [place], when asked if she will be able to drive to [place] she states she is not sure as she feels sleepy. She states tomorrow she will have somebody drive her back to home. I am concerned patient may have developed atelectasis or even PE due staying in bed for prolonged times during her DVT prophylaxis and polypharmacy. Patient was encouraged to be more active and ambulate and provided with incentive spirometry. If her hypoxia and tachycardia does not improve we will get a CTA to rule out PE. I believe patient should be dis charged tomorrow as it would not be safe for her to be driving by herself while being somnolent. 01/25/2019. Patient was seen to be hypoxic yesterday, CTA chest was ordered but unfortunately because of lack of IV access it was canceled and a VQ scan was attempted, patient was taken downstairs for a VQ scan however her venous access did not work, study was half done and had to be canceled. Patient is still hypoxic on room air, otherwise in no apparent distress except for intermittent sharp/pressure-like left-sided chest pain. She is less somnolent but is still stays in bed most of the time even though I did encourage her to ambulate more often. A d-dimer was done to rule out any new DVT/PE. D-dimer is 0.59 which is lower than the d-dimer done on admission, bilateral lower extremity venous Doppler is also pending to rule out any DVTs. Patient states she was told she has COPD but has never been on home O2, she denies having any history of CHF, clinically she does not look volume overload. I have contacted capacity planner and she is working to see if she could be discharged home on home oxygen. 01/26/2019. Patient is still sleeping most of the day, easily arousable though, in no apparent distress, I have seen her ambulating in the hallways with no problems, with nasal cannula saturating WNL on 1.5 to 3 L nasal cannula. Her SBP's are low in EMR but unfortunately they were taken digitally, if her BPs are taken manually she is actually normotensive, her baseline SBPs are in low 100s. She is still complaining of intermittent sharp/pressure-like chest pain and asking for morphine. Is p.o. tolerant, ambulatory, having normal bowel and bladder movements. Denies any fever, chills, nausea, vomiting, diarrhea, constipation or any urinary symptoms. Patient be discharged however needs oxygen which has been arranged by discharge planners, appreciate their help, patient is from out of town, lives in [place], would like to drive back to [place] but due to due to her excessive somnolence I believe it is not safe for her to drive to [place]. This morning she stated that her boyfriend will drive her to [place] however later in the day stated that he could not be done until tomorrow. If patient can be safely transported to [place] tomorrow she could be discharged on home oxygen and restart home meds upon discharge. I have cut down some of her antipsychotics and antidepressants and placed her new dosages on under discharge instructions Reason For Visit: CHEST PAIN Physical Exam Vital Signs: Temp Pulse Resp BP Pulse Ox 98.7 F 102 H 18 110/60 95 01/26/19 15:37 01/26/19 15:37 01/26/19 15:37 01/26/19 15:37 01/26/19 15:37 Pulse Oximeter Continuous Start: 01/21/19 01:07 Freq: RTQ4 Status: Complete Protocol: Document 01/23/19 00:15 [facility] (Rec: 01/23/19 01:17 [facility] [id number]) Pulse Oximetry Assessment Oxygen Saturation (92-100) 95 Oxygen Flow Rate (L/min) 1 Oxygen Delivery Method Nasal Cannula Fraction of Inspired Oxygen (FIO2) 24 Equipment Usage Equipment in Use Continuous Pulse Oximeter 24 Hour Charge Charge Now Continuous SpO2 Machine # [id number] Intake & Output 01/25/19 01/26/19 01/27/19 06:59 06:59 06:59 Intake Total 840 1393 590 Output Total 750 Balance 840 1393 -160 Weight 102.2 kg 103.7 kg General appearance: PRESENT: no acute distress, morbidly obese, well-developed, well-nourished Head exam: PRESENT: atraumatic, normocephalic Respiratory exam: PRESENT: clear to auscultation scotty. ABSENT: rales, rhonchi, wheezes Cardiovascular exam: PRESENT: RRR. ABSENT: diastolic murmur, rubs, systolic murmur GI/Abdominal exam: PRESENT: normal bowel sounds, soft. ABSENT: distended, guarding, mass, organolmegaly, rebound, tenderness Extremities exam: PRESENT: full ROM. ABSENT: calf tenderness, clubbing, pedal edema Neurological exam: PRESENT: alert, awake, oriented to person, oriented to place, oriented to time, oriented to situation, CN II-XII grossly intact. ABSENT: motor sensory deficit Psychiatric exam: PRESENT: depressed, unusual affect Results Laboratory Results: 01/19/19 22:58 01/23/19 06:29 01/25/19 18:39 Carbonic Acid 1.60 H HCO3/H2CO3 Ratio 20:1 ABG pH 7.41 ABG pCO2 53.0 H ABG pO2 95.5 ABG HCO3 32.7 H ABG O2 Saturation 97.2 ABG Base Excess 6.8 FiO2 3L 01/19/19 01/19/19 01/20/19 22:58 22:58 02:34 Creatine Kinase 28 L CK-MB (CK-2) Troponin I < 0.012 < 0.012 NT-Pro-B Natriuret Pep 01/20/19 01/20/19 01/20/19 08:52 08:52 10:53 Creatine Kinase 22 L CK-MB (CK-2) < 0.22 Troponin I Cancelled < 0.012 NT-Pro-B Natriuret Pep 01/20/19 01/20/19 01/20/19 14:30 14:50 21:10 Creatine Kinase 25 L 21 L CK-MB (CK-2) < 0.22 Troponin I < 0.012 NT-Pro-B Natriuret Pep 01/20/19 01/26/19 21:10 10:56 Creatine Kinase CK-MB (CK-2) < 0.22 Troponin I < 0.012 NT-Pro-B Natriuret Pep 79 Impressions: Esophagus X-Ray 01/23/19 00:00 IMPRESSION: Abnormal stomach. Post gastric bypass with Mirna loop. Aberrant communication between the fundal pouch/proximal Mirna loop and remainder of the stomach through a distorted irregular channel, possibly from chronic peptic disease and ulceration. Barium passes through the fundal pouch and into the efferrent loop and gastric antrum/pylorus region without delay. Chest X-Ray 01/25/19 00:00 IMPRESSION: Increased airspace markings in the left lung base, appears platelike subsegmental atelectasis. No other airspace disease or significant Pleural effusion. Lung Scan-VQ NM 01/25/19 00:00 IMPRESSION: NORMAL VENTILATION LUNG SCAN. The patient's IV infiltrated. No MAA was injected for perfusion scan. Assessment and Plan - Diagnosis (1) Hypoxia Is this a current diagnosis for this admission?: Yes Plan: Patient noted to be hypoxic on room air otherwise in no apparent distress. Patient endorses history of COPD however state she has never been on oxygen before. She is afebrile, CBC, CMP WNL. No sign of pneumonia. Denies any cough. No wheezing or crackles on lung examination. She has been refusing her DVT prophylaxis and stays in bed most of the time even though I have been encouraging her to ambulate and be more active. I have cut down on most of her SSRIs and antipsychotics in the hope of making her less somnolent. Initially it was thought that her hypoxia may be due to atelectasis or even it could be DVT/PE. CTA was ordered but unfortunately could not be done due to lack of IV access. A VQ scan was attempted and stated but unfortunately could not be completed as her venous access failed. D-dimer 0.59 down from 0.63 on admission. Bilateral lower extremity venous Doppler negative for any DVT ABG: pH 7.41, PCO2 53.0, PO2 95.5 to 3 L nasal cannula. Given negative patients BMI >45, hypercarbia and hypoxia she likely has obesity hypoventilation syndrome. party planner has arranged home O2 and she can be discharged tomorrow. Meanwhile I have been encouraging patient to ambulate more often, I have cut down on her antipsychotic meds, will get an ABG, incentive spirometry and flutter valve has been provided, DuoNeb's have been ordered. (2) Chest pain Qualifiers: Chest pain type: unspecified Qualified Code(s): R07.9 - Chest pain, unspecified Is this a current diagnosis for this admission?: Yes Plan: Still complaining of intermittent chest pain, 2/5, sharp/pressure-like, left lower chest, and left upper abdomen. Asking for morphine. Only relieved only by morphine. Troponins negative x4 EKG no acute changes. Cardiolite cardiac stress test scheduled but had to be consulted yesterday and today as patient having ongoing persistent chest pain. Dr. Hernandez has evaluated patient and thinks her chest pain is not cardiac and patient can be discharged to follow-up with Dr. Barrientos and neurology. Continue telemetry, antiplatelets, blockers, JENNIFER, sublingual nitroglycerin, morphine. We will try to avoid morphine as patient has resolved blood pressures, most of the time SBP running in the 90s. (3) CAD (coronary artery disease), grindstone coronary artery Qualifiers: [place] vs. transplanted heart: grindstone heart Associated angina: with unspecified angina Qualified Code(s): I25.119 - Atherosclerotic heart disease of grindstone coronary artery with unspecified angina pectoris Is this a current diagnosis for this admission?: Yes Plan: Status post 2 stent placement x2 years. Continue Plavix, beta-blockers, statins, JENNIFER. Outpatient cardiology follow-up. (4) Gastroesophageal reflux disease with esophagitis Is this a current diagnosis for this admission?: Yes Plan: Continue PPIs. Avoid NSAIDs. H&H stable. Barium swallow did not reveal any cause of his esophageal abnormalities except for gastric changes caused by history of gastric bypass. Denies any hematemesis, melena or hematochezia. Outpatient PCP gastroenterology follow-up for after EGD. (5) Obesity (BMI 30-39.9) Is this a current diagnosis for this admission?: Yes Plan: Diet and lifestyle modification recommended. Thyroid function test WNL. (6) Depression Is this a current diagnosis for this admission?: Yes Plan: Chronic. Severe. On multiple antidepressant and antipsychotics. Patient very somnolent most of the time and prefers to stay in bed. Denies any homicidal or suicidal ideation. Restart home medications at a lower dose to avoid excessive somnolence. Outpatient PCP and psychiatry follow-up. (7) Somnolence Is this a current diagnosis for this admission?: Yes Plan: Much improved since admission but still appears somnolent. Patient more alert and cooperative with physical examination. Had a discussion about taking too many antipsychotics and antidepressants. Patient lives in [facility], stating that she sees a psychiatrist and PCP who both have prescribed her below medications. Patient's home medications are Hydroxyzine 25 mg every 8 as needed. Duloxetine 60 mg p.o. twice daily. Trazodone 300 mg p.o. nightly. Amitriptyline 100 mg p.o. nightly. Gabapentin 800 mg p.o. twice daily. Holden 1 tab every 4 hours as needed. Seroquel 200 mg p.o. nightly. Seroquel 50 mg p.o. twice daily. Soma 350 mg p.o. every 8 hours as needed. Diazepam 10 mg p.o. twice daily PRN. To avoid withdrawal and reduce excessive somnolence will restart home meds at the lower dosage. Continue Seroquel 100 mg p.o. nightly, amitriptyline 50 mg p.o. nightly, duloxetine mg p.o. twice daily, trazodone 150 mg nightly. Patient's medications need to be reconciled by psychiatry and PCP. Strongly advised patient to follow-up with PCP and psychiatry for reconciliation of her meds. I have informed patient that I have cut down on her medications due to excessive somnolence and would like her to continue this regimen until seen by her psychiatrist. Patient agreed.
[2019-01-26] MEDS: TRAZODONE HCL 50 MG TABLET PO SCH (22:52)
[2019-01-26] MEDS: SIMVASTATIN 10 MG TABLET PO SCH (22:52)
[2019-01-26] MEDS: AMITRIPTYLINE HCL 50 MG TABLET PO SCH (22:53)
[2019-01-26] MEDS: QUETIAPINE FUMARATE 100 MG TABLET PO SCH (22:53)
[2019-01-27] MEDS: IPRATROPIUM/ALBUTEROL 0.5-2.5 MG/3 ML AMPUL NEB SCH ×4 (02:40→19:52)
[2019-01-27] MEDS: HEPARIN SOD (PORCINE) 5,000 UNIT/ML 1 ML VIAL SUBCUT SCH ×3 (05:25→22:35)
[2019-01-27] MEDS: PANTOPRAZOLE SODIUM 40 MG TABLET.DR PO SCH ×2 (05:28→18:19)
[2019-01-27] MEDS: DULOXETINE HCL 30 MG CAPSULE.DR PO SCH ×2 (09:43→22:34)
[2019-01-27] MEDS: CLOPIDOGREL BISULFATE 75 MG TABLET PO SCH (09:43)
[2019-01-27] MEDS: DOCUSATE SODIUM 100 MG CAPSULE PO SCH ×2 (09:44→18:19)
[2019-01-27] MEDS: MIDODRINE HCL 5 MG TABLET PO SCH ×3 (09:44→18:19)
[2019-01-27] MEDS: SUCRALFATE 1 GM TABLET PO SCH ×4 (09:44→22:34)
[2019-01-27] MEDS: METOCLOPRAMIDE HCL 10 MG TABLET PO SCH ×4 (09:44→22:34)
[2019-01-27] MEDS: RANOLAZINE 500 MG TAB.SR.12H PO SCH ×2 (09:44→22:34)
--- NOTE | 2019-01-27 14:36 | PDOC DISCHARGE SUMMARY ---
Impression - Admit/DC Date/PCP Admission Date/Primary Care Provider: 01/20/19 03:21 Discharge Date: 01/27/19 - Discharge Diagnosis (1) Hypoxia Is this a current diagnosis for this admission?: Yes (2) Chest pain Is this a current diagnosis for this admission?: Yes (3) CAD (coronary artery disease), [place] coronary artery Is this a current diagnosis for this admission?: Yes (4) Obesity (BMI 30-39.9) Is this a current diagnosis for this admission?: Yes (5) Somnolence Is this a current diagnosis for this admission?: Yes (6) Gastroesophageal reflux disease with esophagitis Is this a current diagnosis for this admission?: Yes - Assessment Summary: Patient noted to be hypoxic on room air otherwise in no apparent distress. Patient endorses history of COPD however state she has never been on oxygen before. She is afebrile, CBC, CMP WNL. No sign of pneumonia. Denies any cough. No wheezing or crackles on lung examination. She has been refusing her DVT prophylaxis and stays in bed most of the time even though I have been encouraging her to ambulate and be more active. I have cut down on most of her SSRIs and antipsychotics in the hope of making her less somnolent. Initially it was thought that her hypoxia may be due to atelectasis or even it could be DVT/PE. CTA was ordered but unfortunately could not be done due to lack of IV access. A VQ scan was attempted and stated but unfortunately could not be completed as her venous access failed. D-dimer 0.59 down from 0.63 on admission. Bilateral lower extremity venous Doppler negative for any DVT ABG: pH 7.41, PCO2 53.0, PO2 95.5 to 3 L nasal cannula. Given negative patients BMI >45, hypercarbia and hypoxia she likely has obesity hypoventilation syndrome. 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 Meanwhile I have been encouraging patient to ambulate more often, I have cut down on her antipsychotic meds, will get an ABG, incentive spirometry and flutter valve has been provided, DuoNeb's have been ordered. Still complaining of intermittent chest pain, 2/5, sharp/pressure-like, left lower chest, and left upper abdomen. Asking for morphine. Only relieved only by morphine. Troponins negative x4 EKG no acute changes. Cardiolite cardiac stress test scheduled but had to be consulted yesterday and today as patient having ongoing persistent chest pain. Dr. Hernandez has evaluated patient and thinks her chest pain is not cardiac and patient can be discharged to follow-up with Dr. Barrientos and neurology. Continue telemetry, antiplatelets, blockers, JENNIFER, sublingual nitroglycerin, morphine. We will try to avoid morphine as patient has resolved blood pressures, most of the time SBP running in the 90s. (3) CAD (coronary artery disease), q[place] coronary artery Qualifiers: [place] vs. transplanted heart: q[place] heart Associated angina: with unspecified angina Qualified Code(s): I25.119 - Atherosclerotic heart disease of qagan [place] coronary artery with unspecified angina pectoris Is this a current diagnosis for this admission?: Yes Plan: Status post 2 stent placement x2 years. Continue Plavix, beta-blockers, statins, JENNIFER. Outpatient cardiology follow-up. (4) Gastroesophageal reflux disease with esophagitis Is this a current diagnosis for this admission?: Yes Plan: Continue PPIs. Avoid NSAIDs. H&H stable. Barium swallow did not reveal any cause of his esophageal abnormalities except for gastric changes caused by history of gastric bypass. Denies any hematemesis, melena or hematochezia. Outpatient PCP gastroenterology follow-up for after EGD. 01/27/19-doing well .. walking fine . Patient is going home with home oxygen. (5) Obesity (BMI 30-39.9) Is this a current diagnosis for this admission?: Yes Plan: Diet and lifestyle modification recommended. Thyroid function test WNL. (7) Somnolence Is this a current diagnosis for this admission?: Yes Plan: Much improved since admission but still appears somnolent. Patient more alert and cooperative with physical examination. Had a discussion about taking too many antipsychotics and antidepressants. Patient lives in [place], visiting [facility], stating that she sees a psychiatrist and PCP who both have prescribed her below medications. Patient's home medications are Hydroxyzine 25 mg every 8 as needed. Duloxetine 60 mg p.o. twice daily. Trazodone 300 mg p.o. nightly. Amitriptyline 100 mg p.o. nightly. Gabapentin 800 mg p.o. twice daily. Vance 1 tab every 4 hours as needed. Seroquel 200 mg p.o. nightly. Seroquel 50 mg p.o. twice daily. Soma 350 mg p.o. every 8 hours as needed. Diazepam 10 mg p.o. twice daily PRN. To avoid withdrawal and reduce excessive somnolence will restart home meds at the lower dosage. Continue Seroquel 100 mg p.o. nightly, amitriptyline 50 mg p.o. nightly, du loxetine mg p.o. twice daily, trazodone 150 mg nightly. Patient's medications need to be reconciled by psychiatry and PCP. Strongly advised patient to follow-up with PCP and psychiatry for reconciliation of her meds. I have informed patient that I have cut down on her medications due to excessive somnolence and would like her to continue this regimen until seen by her psychiatrist. Patient agreed. - Additional Information Resuscitation Status: Full Code Discharge Diet: Cardiac Discharge Activity: Activity As Tolerated Referrals: NO LOCAL,PCP [Other] (PATIENT IS FROM OUT OF TOWN. PATIENT TO FOLLOW UP UPON RETURNING HOME.) Prescriptions: Midodrine HCl [Proamatine 5 mg Tablet] 5 mg PO TID #90 tablet Home Medications: Amitriptyline HCl [Elavil 100 mg Tablet] 100 mg PO QHS 01/20/19 Carisoprodol [Soma 350 mg Tablet] 350 mg PO Q8HP PRN 01/20/19 Clopidogrel Bisulfate [Plavix 75 mg Tablet] 75 mg PO DAILY 01/20/19 Diazepam [Valium] 10 mg PO BIDP PRN 01/20/19 Duloxetine HCl [Cymbalta] 60 mg PO BID 01/20/19 Gabapentin [Neurontin] 800 mg PO BID 01/20/19 Hydrocodone/Acetaminophen [Vance 5-325 mg Tablet] 1 tab PO Q4HP PRN 01/20/19 Hydroxyzine HCl [Atarax 25 mg Tablet] 25 mg PO Q8HP PRN 01/20/19 Nitroglycerin [Nitrostat 0.4 mg (1/150 Gr) Tabs 25/Bottle] 0.4 mg SL Q5MP PRN 01/20/19 Omeprazole 40 mg PO BID 01/20/19 Ondansetron [Zofran Odt 4 mg Tablet] 4 mg PO Q8HP PRN 01/20/19 Quetiapine Fumarate [Seroquel] 50 mg PO BID 01/20/19 Quetiapine Fumarate [Seroquel] 200 mg PO QHS 01/20/19 Ranolazine [Ranexa 500 mg Tab.sr] 500 mg PO BID 01/20/19 Trazodone HCl [Desyrel] 300 mg PO QHS 01/20/19 Triamcinolone Acetonide [Aristocort 0.025% Cream] 1 applic TOP BID 01/20/19 Midodrine HCl [Proamatine 5 mg Tablet] 5 mg PO TID #90 tablet 01/27/19 History of Present Illiness History of Present Illness: DWIGHT MURPHY is a 53 year old female Physical Exam Vital Signs: Temp Pulse Resp BP Pulse Ox 98.3 F 84 16 98/65 L 98 01/27/19 12:38 01/27/19 13:27 01/27/19 13:27 01/27/19 12:38 01/27/19 13:27 Pulse Oximeter Continuous Start: 01/21/19 01:07 Freq: RTQ4 Status: Complete Protocol: Document 01/23/19 00:15 [facility] (Rec: 01/23/19 01:17 [facility] [id number]) Pulse Oximetry Assessment Oxygen Saturation (92-100) 95 Oxygen Flow Rate (L/min) 1 Oxygen Delivery Method Nasal Cannula Fraction of Inspired Oxygen (FIO2) 24 Equipment Usage Equipment in Use Continuous Pulse Oximeter 24 Hour Charge Charge Now Continuous SpO2 Machine # [id number] Intake & Output 01/26/19 01/27/19 01/28/19 06:59 06:59 06:59 Intake Total 1393 1360 Output Total 1450 Balance 1393 -90 Weight 103.7 kg 102.6 kg Results Laboratory Results: WBC 7.0 10^3/uL (4.0-10.5) 01/19/19 22:58 RBC 3.75 10^6/uL (3.72-5.28) 01/19/19 22:58 Hgb 11.2 g/dL (12.0-15.5) L 01/19/19 22:58 Hct 32.5 % (36.0-47.0) L 01/19/19 22:58 MCV 87 fl (80-97) 01/19/19 22:58 MCH 29.7 pg (27.0-33.4) 01/19/19 22:58 MCHC 34.3 g/dL (32.0-36.0) 01/19/19 22:58 RDW 14.2 % (11.5-14.0) H 01/19/19 22:58 Plt Count 132 10^3/uL (150-450) L 01/19/19 22:58 Lymph % (Auto) 24.9 % (13-45) 01/19/19 22:58 [place] % (Auto) 8.3 % (3-13) 01/19/19 22:58 Eos % (Auto) 1.9 % (0-6) 01/19/19 22:58 Baso % (Auto) 0.6 % (0-2) 01/19/19 22:58 Absolute Neuts (auto) 4.5 10^3/uL (1.7-8.2) 01/19/19 22:58 Absolute Lymphs (auto) 1.7 10^3/uL (0.5-4.7) 01/19/19 22:58 Absolute Monos (auto) 0.6 10^3/uL (0.1-1.4) 01/19/19 22:58 Absolute Eos (auto) 0.1 10^3/uL (0.0-0.6) 01/19/19 22:58 Absolute Basos (auto) 0.0 10^3/uL (0.0-0.2) 01/19/19 22:58 Seg Neutrophils % 64.3 % (42-78) 01/19/19 22:58 PT 14.0 SEC (11.4-15.4) 01/19/19 22:58 INR 1.07 01/19/19 22:58 D-Dimer 0.59 ug/mL (0.00-0.50) H 01/25/19 10:42 Carbonic Acid 1.60 mmol/L (1.05-1.35) H 01/25/19 18:39 HCO3/H2CO3 Ratio 20:1 01/25/19 18:39 ABG pH 7.41 (7.35-7.45) 01/25/19 18:39 ABG pCO2 53.0 mmHg (35-45) H 01/25/19 18:39 ABG pO2 95.5 mmHg (80-100) 01/25/19 18:39 ABG HCO3 32.7 mmol/L (20-24) H 01/25/19 18:39 ABG Total CO2 34.3 mmol/L (21-25) H 01/25/19 18:39 ABG O2 Saturation 97.2 % (94-98) 01/25/19 18:39 ABG Base Excess 6.8 mmol/L 01/25/19 18:39 FiO2 3L 01/25/19 18:39 Sodium 139.6 mmol/L (137-145) 01/23/19 06:29 Potassium 4.3 mmol/L (3.6-5.0) 01/23/19 06:29 Chloride 102 mmol/L (98-107) 01/23/19 06:29 Carbon Dioxide 33 mmol/L (22-30) H 01/23/19 06:29 Anion Gap 5 (5-19) 01/23/19 06:29 BUN 8 mg/dL (7-20) 01/23/19 06:29 Creatinine 0.88 mg/dL (0.52-1.25) 01/23/19 06:29 Est GFR ( Amer) > 60 (>60) 01/23/19 06:29 Est GFR (MDRD) Non-Af > 60 (>60) 01/23/19 06:29 Glucose 85 mg/dL (75-110) 01/23/19 06:29 Calcium 8.6 mg/dL (8.4-10.2) 01/23/19 06:29 Magnesium 2.0 mg/dL (1.6-2.3) 01/22/19 05:48 Total Bilirubin 0.2 mg/dL (0.2-1.3) 01/22/19 05:48 Direct Bilirubin 0.2 mg/dL (0.0-0.4) 01/22/19 05:48 Neonat Total Bilirubin Not Reportable 01/22/19 05:48 Neonat Direct Bilirubin Not Reportable 01/22/19 05:48 Neonat Indirect Bili Not Reportable 01/22/19 05:48 AST 26 U/L (14-36) 01/22/19 05:48 ALT 14 U/L (<35) 01/22/19 05:48 Alkaline Phosphatase 98 U/L (38-126) 01/22/19 05:48 Creatine Kinase 21 U/L (30-135) L 01/20/19 21:10 CK-MB (CK-2) < 0.22 ng/mL (<4.55) 01/20/19 21:10 Troponin I < 0.012 ng/mL 01/20/19 21:10 NT-Pro-B Natriuret Pep 79 pg/mL (5-900) 01/26/19 10:56 Total Protein 5.7 g/dL (6.3-8.2) L 01/22/19 05:48 Albumin 3.1 g/dL (3.5-5.0) L 01/22/19 05:48 Triglycerides 111 mg/dL (<150) 01/20/19 08:52 Cholesterol 113.78 mg/dL (0-200) 01/20/19 08:52 LDL Cholesterol Direct 50 mg/dL (<100) 01/20/19 08:52 VLDL Cholesterol 22.0 mg/dL (10-31) 01/20/19 08:52 HDL Cholesterol 46 mg/dL (>40) 01/20/19 08:52 TSH 2.94 uIU/mL (0.47-4.68) 01/20/19 08:52 Free T4 1.01 ng/dL (0.78-2.19) 01/20/19 08:52 Free T3 pg/mL 3.25 pg/mL (2.77-5.27) 01/20/19 08:52 Urine Color YELLOW 01/19/19 22:25 Urine Appearance SLIGHTLY-CLOUDY 01/19/19 22:25 Urine pH 6.0 (5.0-9.0) 01/19/19 22:25 Ur Specific [place] 1.028 01/19/19 22:25 Urine Protein NEGATIVE mg/dL (NEGATIVE) 01/19/19 22:25 Urine Glucose (UA) NEGATIVE mg/dL (NEGATIVE) 01/19/19 22:25 Urine Ketones NEGATIVE mg/dL (NEGATIVE) 01/19/19 22:25 Urine Blood NEGATIVE (NEGATIVE) 01/19/19 22:25 Urine Nitrite NEGATIVE (NEGATIVE) 01/19/19 22:25 Urine Bilirubin SMALL (NEGATIVE) H 01/19/19 22:25 Urine Urobilinogen 2.0 mg/dL (<2.0) H 01/19/19 22:25 Ur Leukocyte Esterase TRACE (NEGATIVE) H 01/19/19 22:25 Urine WBC (Auto) 16 /HPF 01/19/19 22:25 Urine RBC (Auto) 4 /HPF 01/19/19 22:25 Urine Bacteria (Auto) TRACE /HPF 01/19/19 22:25 Squamous Epi Cells Auto 1 /HPF 01/19/19 22:25 Amorphous Sediment Auto TRACE /HPF 01/19/19 22:25 Urine Mucus (Auto) MOD /LPF 01/19/19 22:25 Urine Ascorbic Acid NEGATIVE (NEGATIVE) 01/19/19 22:25 01/19/19 01/20/19 01/20/19 22:58 02:34 08:52 CK-MB (CK-2) < 0.22 Troponin I < 0.012 < 0.012 Cancelled NT-Pro-B Natriuret Pep 01/20/19 01/20/19 01/20/19 10:53 14:30 21:10 CK-MB (CK-2) < 0.22 < 0.22 Troponin I < 0.012 < 0.012 < 0.012 NT-Pro-B Natriuret Pep 01/26/19 10:56 CK-MB (CK-2) Troponin I NT-Pro-B Natriuret Pep 79 Impressions: Chest X-Ray 01/19/19 20:18 IMPRESSION: 1. No acute pulmonary findings. Esophagus X-Ray 01/23/19 00:00 IMPRESSION: Abnormal stomach. Post gastric bypass with Mirna loop. Aberrant communication between the fundal pouch/proximal Mirna loop and remainder of the stomach through a distorted irregular channel, possibly from chronic peptic disease and ulceration. Barium passes through the fundal pouch and into the efferrent loop and gastric antrum/pylorus region without delay. Chest X-Ray 01/25/19 00:00 IMPRESSION: Increased airspace markings in the left lung base, appears platelike subsegmental atelectasis. No other airspace disease or significant Pleural effusion. Lung Scan-VQ NM 01/25/19 00:00 IMPRESSION: NORMAL VENTILATION LUNG SCAN. The patient's IV infiltrated. No MAA was injected for perfusion scan. Stroke Is this a Stroke Patient?: No Stroke Pt being discharged on Anti-thrombolytic therapy?: No Reason(s) for not prescribing Anti-thrombolytic therapy:: Not indicated Stroke Pt being discharged on Anti-coagulation therapy?: No Reason(s) for not prescribing Anti-coagulation therapy:: Not indicated Stroke Pt being discharged on Statins?: No Reason(s) for not prescribing Statins therapy:: Not indicated Acute Heart Failure - Is this a Heart Failure Patient?: No
[2019-01-27] MEDS: AMITRIPTYLINE HCL 50 MG TABLET PO SCH (22:34)
[2019-01-27] MEDS: QUETIAPINE FUMARATE 100 MG TABLET PO SCH (22:34)
[2019-01-27] MEDS: TRAZODONE HCL 50 MG TABLET PO SCH (22:34)
[2019-01-27] MEDS: SIMVASTATIN 10 MG TABLET PO SCH (22:35)
[2019-01-28] MEDS: IPRATROPIUM/ALBUTEROL 0.5-2.5 MG/3 ML AMPUL NEB SCH ×2 (02:09→08:12)
[2019-01-28] MEDS: PANTOPRAZOLE SODIUM 40 MG TABLET.DR PO SCH (05:07)
[2019-01-28] MEDS: HEPARIN SOD (PORCINE) 5,000 UNIT/ML 1 ML VIAL SUBCUT SCH (05:07)
[2019-01-28] MEDS ORDERED: INFLUENZA QUAD (6MOS+) 2019-20 VAC 0.5 ML SYR IM ONE (08:00)
[2019-01-28] MEDS: METOCLOPRAMIDE HCL 10 MG TABLET PO SCH (08:24)
[2019-01-28] MEDS: SUCRALFATE 1 GM TABLET PO SCH (08:24)
[2019-01-28 08:28] VITALS: BP 72/49
== END 2019-01-28 09:48 | disposition home or self-care (01) ==
LOC: ER 18:19 → INTOOBSV 01-20 03:21 → EH 01-20 03:21 → 5 01-20 04:45
PROVIDERS: ADMIT Emergency Medicine; ATTEND Emergency Medicine
DX: R09.02 Hypoxemia (principal); R07.89 Other chest pain; I25.119 Atherosclerotic heart disease of native coronary artery with unspecified angina pectoris; E66.01 Morbid (severe) obesity due to excess calories; R40.0 Somnolence; K21.0 Gastro-esophageal reflux disease with esophagitis; R06.89 Other abnormalities of breathing; F33.2 Major depressive disorder, recurrent severe without psychotic features; R06.02 Shortness of breath; I95.9 Hypotension, unspecified; R00.0 Tachycardia, unspecified; Z68.39 Body mass index [BMI] 39.0-39.9, adult; Z95.5 Presence of coronary angioplasty implant and graft; Z79.899 Other long term (current) drug therapy; Z98.84 Bariatric surgery status; Z74.01 Bed confinement status; Z90.49 Acquired absence of other specified parts of digestive tract; Z82.49 Family history of ischemic heart disease and other diseases of the circulatory system; Z88.8 Allergy status to other drugs, medicaments and biological substances
CPT/HCPCS: 93005 ×2; 99285; 96361; 96374; 96375; 36415 ×6; 84439; 82553; 82803; 82550 ×2; 83735 ×2; 84443; 85025; 85610; 80048; 80053 ×2; 81001; 84484 ×2; 84481; 85379 ×2; 80061; 83880; 93970 ×2; 71045 ×2; 74220; 78579; 93010 ×2; 36600; 94640 ×5; 94762 ×3; G0378 ×10; A9567; A9270 ×85; J1644 ×4; J3490 ×10; J2270 ×8; J2405 ×4; J7030 ×3; Q9969; J7620

== ENCOUNTER 2019-02-10 18:02 | Emergency (ER) | payer MEDICARE, MEDICAID ==
--- NOTE | 2019-02-10 18:21 | ER Document Report ---
ED Medical Screen (RME) - General Chief Complaint: Chest Pain Stated Complaint: CHEST PAIN Time Seen by Provider: 02/10/19 18:15 Notes: Patient is a 53-year-old female who presents emergency department with a chief complaint of chest pain. Her pain started around 1400 this afternoon. She took 4 sublingual nitroglycerin and has not had relief of her pain. Describes her pain as a sharp, burning, heavy pain. She also has right jaw pain and left arm pain. Patient reports 2 stents placed about 2 to 3 years ago at [facility]. Exam: S1, S2. I have greeted and performed a rapid initial assessment of this patient. A comprehensive ED assessment and evaluation of the patient, analysis of test results and completion of medical decision making process will be conducted by an additional ED providers. TRAVEL OUTSIDE OF THE [place] IN LAST 30 DAYS: No - Related Data Allergies/Adverse Reactions: acetaminophen [From Tylenol] Allergy (Verified 01/20/19 18:29) NSAIDS (Non-Steroidal Anti-Inflamma Allergy (Verified 01/19/19 18:58) Past Medical History - Social History Frequency of alcohol use: None Drug Abuse: None - Past Medical History Cardiac Medical History: Reports: Hx Coronary Artery Disease Denies: Hx Atrial Fibrillation, Hx Congestive Heart Failure, Hx Heart Attack, Hx Hypercholesterolemia, Hx Hypertension Pulmonary Medical History: Denies: Hx Asthma, Hx COPD Neurological Medical History: Denies: Hx Seizures Endocrine Medical History: Denies: Hx Diabetes Mellitus Type 1, Hx Diabetes Mellitus Type 2, Hx Hyperthyroidism, Hx Hypothyroidism GI Medical History: Reports: Hx Gastroesophageal Reflux Disease. Denies: Hx Cirrhosis, Hx Crohn's Disease, Hx Hepatitis, Hx Ulcerative Colitis Musculoskeltal Medical History: Denies Hx Arthritis, Denies Hx Gout Skin Medical History: Denies Hx Eczema, Denies Hx Psoriasis Psychiatric Medical History: Reports: Hx Depression Infectious Medical History: Denies: Hx Hepatitis Past Surgical History: Reports: Hx Cardiac Catheterization, Hx Section, Hx Cholecystectomy, Hx Coronary Stent - X 2, Hx Tonsillectomy
--- NOTE | 2019-02-10 19:08 | RADIOLOGY REPORT (SQ) ---
EXAM DESCRIPTION: CHEST SINGLE VIEW COMPLETED DATE/TIME: 02/10/2019 6:36 pm REASON FOR STUDY: chest pain COMPARISON: 01/25/2019 EXAM PARAMETERS: NUMBER OF VIEWS: One view. TECHNIQUE: Single frontal radiographic view of the chest acquired. RADIATION DOSE: NA LIMITATIONS: None. FINDINGS: LUNGS AND PLEURA: Limited linear atelectasis in the left base. MEDIASTINUM AND HILAR STRUCTURES: No masses. Contour normal. HEART AND VASCULAR STRUCTURES: Heart normal in size. Normal vasculature. BONES: No acute findings. HARDWARE: None in the chest. OTHER: No other significant finding. IMPRESSION: NO ACUTE RADIOGRAPHIC FINDING IN THE CHEST. TECHNICAL DOCUMENTATION: JOB ID: [id number] [employer]- All Rights Reserved Reading location - IP/workstation name: [email or web address]
--- NOTE | 2019-02-10 20:50 | ER Document Report ---
ED Cardiac - General Chief Complaint: Chest Pain Stated Complaint: CHEST PAIN Time Seen by Provider: 02/10/19 18:15 Mode of Arrival: Ambulatory Information source: Patient TRAVEL OUTSIDE OF THE [place] IN LAST 30 DAYS: No - HPI Notes: Patient states she was having central chest pain today with shortness of breath nausea and sweating. She states that it radiates to the left arm. It was constant. It was relieved with nitroglycerin for only 5 to 10 minutes. It is been constant since then. Patient denies any cough cold or congestion. She states she has had previous stents placed several years ago. She states that she does not take any type of blood thinner except Plavix but she does not always take her Plavix. She denies any fevers. She states this pain feels similar to when she had to have her stents placed several years ago. - Related Data Allergies/Adverse Reactions: acetaminophen [From Tylenol] Allergy (Verified 01/20/19 18:29) NSAIDS (Non-Steroidal Anti-Inflamma Allergy (Verified 01/19/19 18:58) Past Medical History - General Information source: Patient - Social History Smoking Status: Never Smoker Frequency of alcohol use: None Drug Abuse: None Family History: CAD. denies: DM, Hyperlipidemia, Hypertension, Malignancy Patient has suicidal ideation: No Patient has homicidal ideation: No - Past Medical History Cardiac Medical History: Reports: Hx Coronary Artery Disease Denies: Hx Atrial Fibrillation, Hx Congestive Heart Failure, Hx Heart Attack, Hx Hypercholesterolemia, Hx Hypertension Pulmonary Medical History: Denies: Hx Asthma, Hx COPD Neurological Medical History: Denies: Hx Seizures Endocrine Medical History: Denies: Hx Diabetes Mellitus Type 1, Hx Diabetes Mellitus Type 2, Hx Hyperthyroidism, Hx Hypothyroidism GI Medical History: Reports: Hx Gastroesophageal Reflux Disease. Denies: Hx Ci rrhosis, Hx Crohn's Disease, Hx Hepatitis, Hx Ulcerative Colitis Musculoskeletal Medical History: Denies Hx Arthritis, Denies Hx Gout Skin Medical History: Denies Hx Eczema, Denies Hx Psoriasis Psychiatric Medical History: Reports: Hx Depression Infectious Medical History: Denies: Hx Hepatitis Past Surgical History: Reports: Hx Cardiac Catheterization - x2, Hx Sec tion, Hx Cholecystectomy, Hx Coronary Stent - X 2, Hx Tonsillectomy Review of Systems - Review of Systems Constitutional: denies: Chills, Fever Cardiovascular: Chest pain, Palpitations Respiratory: Short of breath. denies: Cough Gastrointestinal: denies: Abdominal pain, Diarrhea, Vomiting -: Yes All other systems reviewed and negative Physical Exam - Vital signs Interpretation: Normal - General General appearance: Appears well, Alert - HEENT Head: Normocephalic, Atraumatic Eyes: Normal Pupils: PERRL - Respiratory Respiratory status: No respiratory distress Chest status: Nontender Breath sounds: Normal Chest palpation: Normal - Cardiovascular Rhythm: Regular Heart sounds: Normal auscultation Murmur: No - Abdominal Inspection: Normal Distension: No distension Bowel sounds: Normal Tenderness: Nontender Organomegaly: No organomegaly - Back Back: Normal, Nontender - Extremities General upper extremity: Normal inspection, Nontender, Normal color, Normal ROM, Normal temperature General lower extremity: Normal inspection, Nontender, Normal color, Normal ROM, Normal temperature, Normal weight bearing. No: Henry's sign - Neurological Neuro grossly intact: Yes Cognition: Normal Orientation: AAOx4 [place] Coma Scale Eye Opening: Spontaneous Jessica Coma Scale Verbal: Oriented Jessica Coma Scale Motor: Obeys Commands Compton Coma Scale Total: 15 Speech: Normal Motor strength normal: LUE, RUE, LLE, RLE Sensory: Normal - Psychological Associated symptoms: Normal affect, Normal mood - Skin Skin Temperature: Warm Skin Moisture: Dry Skin Color: Normal Course - Re-evaluation Re-evalutation: 02/10/19 21:55 Patient presents with chest pain. Patient had a recent admission approximate 2 weeks ago in which she also had chest pain. She was seen by cardiology during the visit and the pain was deemed noncardiac. This pain also seems to be noncardiac as she has had it all day however she has no EKG or enzyme changes. She has been stable here throughout. Vitals have been normal. Her d-dimer is not significantly changed from her previous d-dimer. I do not believe that the patient's pain is cardiac or pulmonary in origin. Most likely it is probably chest wall. I think patient is stable for discharge and follow-up as an outpatient. - Laboratory Result Diagrams: 02/10/19 20:34 02/10/19 20:34 Laboratory results interpreted by me: 02/10/19 02/10/19 20:34 20:34 D-Dimer 0.62 H Est GFR (MDRD) Non-Af 55 L - Diagnostic Test Radiology reviewed: Image reviewed, Reports reviewed - EKG Interpretation by Me EKG shows normal: Sinus rhythm Rate: Normal - 97 Rhythm: NSR [place]/QRS: No: Right axis deviation, Left axis deviation Discharge - Discharge Clinical Impression: Chest wall pain Condition: Stable Disposition: HOME, SELF-CARE Instructions: Chest Wall Pain ([facility]), Chest Pain of Unclear Cause ([facility]) Additional Instructions: Please call your primary care doctor first thing in the morning to schedule follow-up Prescriptions: Tramadol HCl [Ultram] 50 mg PO Q6 PRN 3 Days #12 tablet PRN Reason:
[2019-02-10 21:02] LABS: ALBUMIN 4.3 g/dL (3.5-5.0); ALKALINE PHOSPHATASE 124 U/L (38-126); ANION GAP 10 (5-19); ASPARTATE AMINO TRANSFERASE 32 U/L (14-36); BILIRUBIN,DIRECT 0.4 mg/dL (0.0-0.4); BILIRUBIN,TOTAL 0.5 mg/dL (0.2-1.3); BLOOD UREA NITROGEN 14 mg/dL (7-20); CALCIUM 9.1 mg/dL (8.4-10.2); CARBON DIOXIDE 25 mmol/L (22-30); CHLORIDE 103 mmol/L (98-107); GLUCOSE 91 mg/dL (75-110); POTASSIUM 3.9 mmol/L (3.6-5.0); TOTAL PROTEIN 7.7 g/dL (6.3-8.2)
--- NOTE | 2019-02-10 21:35 | EKG REPORT ---
SEVERITY:- BORDERLINE ECG - SINUS RHYTHM BORDERLINE T ABNORMALITIES, ANTERIOR LEADS : Confirmed by: Zarina Ordoñez 10-Feb-2019 21:34:10
[2019-02-10] MEDS ORDERED: TRAMADOL HCL 50 MG TABLET PO ONE (22:03)
[2019-02-10 22:17] VITALS: BP 111/90
== END 2019-02-10 22:14 | disposition home or self-care (01) ==
LOC: ER 18:02
DX: R07.89 Other chest pain (principal); R06.02 Shortness of breath; R11.0 Nausea; R61 Generalized hyperhidrosis; M79.602 Pain in left arm; Z79.02 Long term (current) use of antithrombotics/antiplatelets; I25.10 Atherosclerotic heart disease of native coronary artery without angina pectoris
CPT/HCPCS: 93005; 36415; 83735; 80053; 84484; 85379; 71045; 93010; A9270

== ENCOUNTER 2019-02-16 01:38 | Emergency (ER) | payer MEDICARE, MEDICAID ==
--- NOTE | 2019-02-16 02:44 | ER Document Report ---
ED General - General Stated Complaint: CHEST PAIN Time Seen by Provider: 02/16/19 02:02 TRAVEL OUTSIDE OF THE [place] IN LAST 30 DAYS: No - HPI Notes: 53-year-old female with multiple health issues including remote prior CAD, stenting, depression, chronic pain now presents with continued chest pain. Patient was actually last seen here on the and has had nearly constant pain in her chest since before then. Describes pain in her left upper lateral chest that radiates down her left lateral chest under her breast as well as in her left arm. Essentially unrelenting, does not really improve much with nitrates or any other therapy. She was seen here couple of weeks ago and underwent admission to the hospital, this was complicated by inability to obtain IV access, canceling of her stress test and inability to perform CT angiogram. Review of those records indicate she had persistently negative biomarkers. A minimally elevated d-dimer. She been seen by cardiology and felt not to have a cardiac etiology of her chest pain and not felt to have venous thromboembolism. She did have negative ultrasounds of her lower extremities. She returned again on the and continued to have pain, underwent a ED work-up at that time that was negative and she was discharged home. She presents with continued pain and states it is just not going away. She denies any fever, chills or sweats. No significant cough, no acute dyspnea. Moderate intensity, sometimes worse with motion, no discrete injury. No other modifying factors, no other associated symptoms, no other provocative or palliative factors. - Related Data Allergies/Adverse Reactions: acetaminophen [From Tylenol] Allergy (Verified 01/20/19 18:29) NSAIDS (Non-Steroidal Anti-Inflamma Allergy (Verified 01/19/19 18:58) Home Medications: Seroquel. Nitroglycerin Past Medical History - Social History Smoking Status: Never Smoker Chew tobacco use (# tins/day): No Frequency of alcohol use: None Drug Abuse: None Family History: CAD. denies: DM, Hyperlipidemia, Hypertension, Malignancy Patient has suicidal ideation: No Patient has homicidal ideation: No - Past Medical History Cardiac Medical History: Reports: Hx Coronary Artery Disease Denies: Hx Atrial Fibrillation, Hx Congestive Heart Failure, Hx Heart Attack, Hx Hypercholesterolemia, Hx Hypertension Pulmonary Medical History: Denies: Hx Asthma, Hx COPD Neurological Medical History: Denies: Hx Seizures Endocrine Medical History: Denies: Hx Diabetes Mellitus Type 1, Hx Diabetes Mellitus Type 2, Hx Hyperthyroidism, Hx Hypothyroidism GI Medical History: Reports: Hx Gastroesophageal Reflux Disease. Denies: Hx Cirrhosis, Hx Crohn's Disease, Hx Hepatitis, Hx Ulcerative Colitis Musculoskeletal Medical History: Denies Hx Arthritis, Denies Hx Gout Skin Medical History: Denies Hx Eczema, Denies Hx Psoriasis Psychiatric Medical History: Reports: Hx Depression Infectious Medical History: Denies: Hx Hepatitis Past Surgical History: Reports: Hx Cardiac Catheterization - x2, Hx Section, Hx Cholecystectomy, Hx Coronary Stent - X 2, Hx Tonsillectomy Review of Systems - Review of Systems Notes: Review of systems as in the history of present illness, otherwise negative x 10 systems. Physical Exam - Vital signs Vitals: Temp Pulse Resp BP Pulse Ox 97.8 F 94 18 132/76 H 95 02/16/19 01:58 02/16/19 01:58 02/16/19 01:58 02/16/19 01:58 02/16/19 01:58 - Notes Notes: General: Well developed . HEENT: Normocephalic, atraumatic. Pupils equal round reactive to light. No JVD. Chest: No trauma. There is tenderness on palpation of left anterolateral chest wall and inframammary area without any skin changes, crepitus or sign of trauma Respiratory: Good air exchange, normal excursion. Cardiac: Regular rhythm. No murmurs or gallops. Abdomen: Soft, benign. Nondistended. Nontender. Back: No asymmetry or gross abnormality. Motor: Grossly normal power and tone. Neurologic: Alert, nonfocal. Cranial nerves II-12 are intact. Sensation intact. Vascular: Well perfused. Normal peripheral pulses. Skin: No petechiae or purpura. Course - Re-evaluation Re-evalutation: 02/16/19 02:44 53-year-old female somewhat atypical chest pain. Her course has been complicated by difficult IV access which again is repeated today. X-rays and basic labs been ordered prior to my evaluation of the patient. Her ECG is nonspecific but nonischemic and shows no acute changes. My suspicion for ACS is very low. Will repeat basic labs and x-ray, reevaluate. 02/16/19 04:22 Patient CBC is reviewed and is unremarkable for any acute change. Unfortunately, despite multiple attempts, nursing staff were unable to obtain IV access. This is a common problem for this patient. The blood that is available was hemolyzed they cannot run chemistries or troponin. I have performed a femoral vein stick to obtain 20 cc of blood and this is currently pending. Otherwise patient remains unchanged, received a dose of oral analgesics. 02/16/19 05:29 Labs returned, chemistries grossly unremarkable, troponin normal. Patient is discharged home, feels much better with IM Compazine, analgesics were deferred. - Vital Signs Vital signs: Temp Pulse Resp BP Pulse Ox 97.8 F 94 15 105/72 95 02/16/19 01:58 02/16/19 01:58 02/16/19 04:27 02/16/19 04:27 02/16/19 04:27 - Laboratory Result Diagrams: 02/16/19 03:05 02/16/19 04:27 Laboratory results interpreted by me: 02/16/19 02/16/19 03:05 04:27 Hgb 11.0 L Hct 32.7 L RDW 14.2 H Potassium 3.1 L Carbon Dioxide 32 H Discharge - Discharge Clinical Impression: Chest pain Qualifiers: Chest pain type: other chest pain Qualified Code(s): R07.89 - Other chest pain Condition: Stable Disposition: HOME, SELF-CARE Instructions: Chest Pain of Unclear Cause ([facility]) Additional Instructions: Follow up with your regular doctor in the next 24 hours
[2019-02-16 03:26] LABS: ABSOLUTE BASOPHILS # (AUTO) 0.1 10^3/uL (0.0-0.2); ABSOLUTE EOSINOPHILS # (AUTO) 0.2 10^3/uL (0.0-0.6); ABSOLUTE LYMPHOCYTES (AUTO) 1.9 10^3/uL (0.5-4.7); ABSOLUTE MONOCYTES (AUTO) 0.7 10^3/uL (0.1-1.4); ABSOLUTE NEUT (AUTO) 4.4 10^3/uL (1.7-8.2); EOSINOPHILS % (AUTO) 2.7 % (0-6); HEMATOCRIT 32.7 % (36.0-47.0); LYMPHOCYTES % (AUTO) 25.6 % (13-45); MEAN CORPUSCULAR HEMOGLOBIN 29.6 pg (27.0-33.4); MEAN CORPUSCULAR HGB CONC 33.7 g/dL (32.0-36.0); MEAN CORPUSCULAR VOLUME 88 fl (80-97); MONOCYTES % (AUTO) 9.8 % (3-13); PLATELET COUNT 201 10^3/uL (150-450); RED BLOOD COUNT 3.72 10^6/uL (3.72-5.28); RED CELL DISTRIBUTION WIDTH 14.2 % (11.5-14.0); SEGMENTED NEUTROPHILS % (AUTO) 60.9 % (42-78); TOTAL CELLS COUNTED % (AUTO) 100 %; WHITE BLOOD COUNT 7.3 10^3/uL (4.0-10.5)
--- NOTE | 2019-02-16 04:07 | RADIOLOGY REPORT (SQ) ---
Chest 2 view on 02/16/2019 at 4:03 AM CLINICAL INDICATION: Chest pain COMPARISON: 02/10/2019 FINDINGS: There is minimal linear atelectasis or scarring in the left lower lung. The lungs are otherwise clear. Cardiac, hilar and mediastinal contours are within normal limits. No bony abnormality is noted. IMPRESSION: No acute disease.
[2019-02-16] MEDS ORDERED: HYDROCODONE/ACETAMINOPHEN 5-325 MG TABLET PO ONE (04:24)
[2019-02-16] MEDS ORDERED: PROCHLORPERAZINE EDISYLATE INJ 10 MG/2 ML VIAL IM ONE (04:35)
[2019-02-16 04:54] LABS: ALBUMIN 3.5 g/dL (3.5-5.0); ALKALINE PHOSPHATASE 108 U/L (38-126); ASPARTATE AMINO TRANSFERASE 30 U/L (14-36); BILIRUBIN,DIRECT 0.1 mg/dL (0.0-0.4); BILIRUBIN,TOTAL 0.4 mg/dL (0.2-1.3); BLOOD UREA NITROGEN 9 mg/dL (7-20); CALCIUM 8.5 mg/dL (8.4-10.2); GLUCOSE 96 mg/dL (75-110); POTASSIUM 3.1 mmol/L (3.6-5.0); TOTAL PROTEIN 6.5 g/dL (6.3-8.2)
[2019-02-16 05:00] LABS: ANION GAP 6 (5-19); CARBON DIOXIDE 32 mmol/L (22-30); CHLORIDE 102 mmol/L (98-107)
[2019-02-16 05:33] VITALS: BP 106/68
--- NOTE | 2019-02-17 09:24 | EKG REPORT ---
SEVERITY:- BORDERLINE ECG - SINUS RHYTHM BORDERLINE T ABNORMALITIES, ANTERIOR LEADS : Confirmed by: Solange Hernandez MD 17-Feb-2019 09:23:55
== END 2019-02-16 05:30 | disposition home or self-care (01) ==
LOC: ER 01:38
DX: R07.9 Chest pain, unspecified (principal); I25.10 Atherosclerotic heart disease of native coronary artery without angina pectoris; Z95.5 Presence of coronary angioplasty implant and graft; F32.9 Major depressive disorder, single episode, unspecified; Z79.899 Other long term (current) drug therapy; Z88.8 Allergy status to other drugs, medicaments and biological substances; Z82.49 Family history of ischemic heart disease and other diseases of the circulatory system
CPT/HCPCS: 36415; 85025; 80053; 84484; 71046; J0780; 93005; 93010; 96372; 99285

== ENCOUNTER 2019-03-06 21:12 | Emergency (ER) | payer MEDICARE, MEDICAID ==
[2019-03-06] MEDS ORDERED: MORPHINE SULFATE 10 MG/ML INJ IV ONE (23:46)
[2019-03-06] MEDS ORDERED: NITROGLYCERIN 0.4 MG/TAB 25 TAB/BOTTLE SL PRN (23:47)
--- NOTE | 2019-03-06 23:51 | ER Document Report ---
ED Medical Screen (RME) - General Chief Complaint: Chest Pain Stated Complaint: CHEST PAIN Time Seen by Provider: 03/06/19 23:43 TRAVEL OUTSIDE OF THE [place] IN LAST 30 DAYS: No - HPI Notes: 03/06/19 23:49 53-year-old female to the emergency department with complaints of chest pain left side that radiates down her arm that began tonight at about 7 PM. She states that this pain feels a lot like the last time she had a heart attack. She states that she had stents placed 4 years ago in [place]. She admits to shortness of breath but denies any nausea vomiting or diaphoresis. She states that she is taking 2 of her sublingual nitroglycerin which have not helped her pain but the pain still persists. She denies any other complaints tonight. Performed a medical screening exam on the patient and have placed initial orders to expedite her care this evening. We have remeasured her blood pressure and it is 111/62. Initial EKG is reassuring without evidence of an acute STEMI but have gone ahead and ordered a second EKG as her pain still persists. We will have her further evaluated and dispositioned by main side ER provider - Related Data Allergies/Adverse Reactions: acetaminophen [From Tylenol] Allergy (Verified 01/20/19 18:29) NSAIDS (Non-Steroidal Anti-Inflamma Allergy (Verified 01/19/19 18:58) Past Medical History - Past Medical History Cardiac Medical History: Reports: Hx Coronary Artery Disease Denies: Hx Atrial Fibrillation, Hx Congestive Heart Failure, Hx Heart Attack, Hx Hypercholesterolemia, Hx Hypertension Pulmonary Medical History: Denies: Hx Asthma, Hx COPD Neurological Medical History: Denies: Hx Seizures Endocrine Medical History: Denies: Hx Diabetes Mellitus Type 1, Hx Diabetes Mellitus Type 2, Hx Hyperthyroidism, Hx Hypothyroidism GI Medical History: Reports: Hx Gastroesophageal Reflux Disease. Denies: Hx Cirrhosis, Hx Crohn's Disease, Hx Hepatitis, Hx Ulcerative Colitis Musculoskeltal Medical History: Denies Hx Arthritis, Denies Hx Gout Skin Medical History: Denies Hx Eczema, Denies Hx Psoriasis Psychiatric Medical History: Reports: Hx Depression Infectious Medical History: Denies: Hx Hepatitis Past Surgical History: Reports: Hx Cardiac Catheterization - x2, Hx Section, Hx Cholecystectomy, Hx Coronary Stent - X 2, Hx Tonsillectomy Physical Exam - Vital signs Vitals: Temp Pulse Resp BP Pulse Ox 98.0 F 72 24 H 141/78 H 95 03/06/19 21:45 03/06/19 21:45 03/06/19 21:45 03/06/19 21:45 03/06/19 21:45 Course - Vital Signs Vital signs: Temp Pulse Resp BP Pulse Ox 98.0 F 72 24 H 141/78 H 95 03/06/19 21:45 03/06/19 21:45 03/06/19 21:45 03/06/19 21:45 03/06/19 21:45
[2019-03-07] MEDS ORDERED: MORPHINE SULFATE 10 MG/ML INJ IM ONE (00:22)
[2019-03-07] MEDS ORDERED: ONDANSETRON 4 MG TAB.RAPDIS PO ONE (00:22)
--- NOTE | 2019-03-07 00:48 | ER Document Report ---
ED General - General Chief Complaint: Epigastric Pain Stated Complaint: Epigastric Pain Time Seen by Provider: 03/06/19 23:43 Notes: Patient is a 53-year-old female that comes to the emergency department for chief complaint of pain along her upper abdomen, left abdomen, and left side of the chest with nausea. She states that she has felt nauseated all day and was "afraid to eat anything or I might vomit". She states that she started feeling worse tonight and became concerned. When I asked patient to point to the area she points to the left upper abdomen and then up towards the left chest. She denies vomiting, fever, flank pain, shortness of breath, injury. 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 Patient came by EMS and was g iven 2 sublingual nitroglycerin, she states that it did not help her pain. She states she had a stress test in July which was normal. I asked patient how often she gets patient also states that she gets chest pain all the time, she takes nitroglycerin as needed for this, she states that sometimes she will get it for "3 weeks straight". However the nausea and abdominal pain reportedly is new. She states her only daily medication is Seroquel and she does not take anything else. She denies smoking, alcohol, recreational drugs. She comes from home. TRAVEL OUTSIDE OF THE [place] IN LAST 30 DAYS: No - Related Data Allergies/Adverse Reactions: acetaminophen [From Tylenol] Allergy (Verified 01/20/19 18:29) NSAIDS (Non-Steroidal Anti-Inflamma Allergy (Verified 01/19/19 18:58) Home Medications: plavix. nitroglycerin. trazodone. cymbalta Past Medical History - General Information source: Patient - Social History Smoking Status: Former Smoker Chew tobacco use (# tins/day): No Frequency of alcohol use: None Drug Abuse: None Lives with: Friend Family History: CAD. denies: DM, Hyperlipidemia, Hypertension, Malignancy Patient has suicidal ideation: No Patient has homicidal ideation: No - Past Medical History Cardiac Medical History: Reports: Hx Coronary Artery Disease Denies: Hx Atrial Fibrillation, Hx Congestive Heart Failure, Hx Heart Attack, Hx Hypercholesterolemia, Hx Hypertension Pulmonary Medical History: Denies: Hx Asthma, Hx COPD Neurological Medical History: Denies: Hx Seizures Endocrine Medical History: Denies: Hx Diabetes Mellitus Type 1, Hx Diabetes Mellitus Type 2, Hx Hyperthyroidism, Hx Hypothyroidism GI Medical History: Reports: Hx Gastroesophageal Reflux Disease. Denies: Hx Cirrhosis, Hx Crohn's Disease, Hx Hepatitis, Hx Ulcerative Colitis Musculoskeletal Medical History: Denies Hx Arthritis, Denies Hx Gout Skin Medical History: Denies Hx Eczema, Denies Hx Psoriasis Psychiatric Medical History: Reports: Hx Depression Infectious Medical History: Denies: Hx Hepatitis Past Surgical History: Reports: Hx Cardiac Catheterization - x2, Hx Section, Hx Cholecystectomy, Hx Coronary Stent - X 2, Hx Tonsillectomy - Immunizations Hx Diphtheria, Pertussis, Tetanus Vaccination: Yes Review of Systems - Review of Systems Constitutional: No symptoms reported EENT: No symptoms reported Cardiovascular: See HPI Respiratory: No symptoms reported Gastrointestinal: See HPI Genitourinary: No symptoms reported Female Genitourinary: No symptoms reported Musculoskeletal: No symptoms reported Skin: No symptoms reported Hematologic/Lymphatic: No symptoms reported Neurological/Psychological: No symptoms reported Physical Exam - Vital signs Vitals: Temp Pulse Resp BP Pulse Ox 98.0 F 72 24 H 141/78 H 95 03/06/19 21:45 03/06/19 21:45 03/06/19 21:45 03/06/19 21:45 03/06/19 21:45 - Notes Notes: GENERAL: Alert, interacts well. No acute distress. HEAD: Normocephalic, atraumatic. EYES: Pupils equal, round, and reactive to light. Extraocular movements intact. ENT: Oral mucosa moist, tongue midline. Oropharynx unremarkable. Airway patent. LUNGS: Clear to auscultation bilaterally, no wheezes, rales, or rhonchi. No respiratory distress. HEART: Regular rate and rhythm. No murmur ABDOMEN: Tenderness in the epigastric and left upper quadrant, there is some mild wincing but no guarding, remaining abdomen is completely benign. GENITOURINARY: Deferred EXTREMITIES: Moves all 4 extremities spontaneously. No edema, normal radial and dorsalis pedis pulses bilaterally. No cyanosis. BACK: no cervical, thoracic, lumbar midline tenderness. No saddle anesthesia, normal distal neurovascular exam. Moves all extremities in full range of motion. NEUROLOGICAL: Alert and oriented x3. Normal speech. Cranial nerves II through XII grossly intact. PSYCH: Very talkative SKIN: Warm, dry, normal turgor. No rashes or lesions noted. Course - Re-evaluation Re-evalutation: Patient is very well-appearing. She is very talkative, talking about her nephew and things generally outside of her current condition. She is very well- appearing and there does appear to be possibly a social aspect of her visit tonight. She does have epigastric and left lower quadrant pain on exam however, she is reporting nausea and concern about eating although she has not had any vomiting or black stools. She has had a cholecystectomy. She tells me her chest pain is chronic and she has this very frequently and it is not changed from prior. In addition to this she is here for her abdominal symptoms reportedly. CBC, chemistry, lipase unremarkable. Troponin unremarkable. EKG without change from prior. Chest x-ray unremarkable. Troponin cycled and negative. Patient was initially given pain and nausea medication, she states she does feel improved, she was given p.o. medications and then food, afterwards she fell asleep and has no complaints. I discussed with patient. She states she has a follow-up with GI within a week with planned endoscopy and colonoscopy. Patient will be started on medications for suspected upper gastrointestinal inflammation, discussed return precautions in detail. She states appreciation and agreement. Stable at time of discharge. - Vital Signs Vital signs: Temp Pulse Resp BP Pulse Ox 98.0 F 72 17 121/69 100 03/06/19 21:45 03/06/19 21:45 03/07/19 04:01 03/07/19 04:01 03/07/19 01:39 - Laboratory Result Diagrams: 03/07/19 00:45 03/07/19 00:45 Laboratory results interpreted by me: 03/07/19 00:45 RDW 14.1 H - EKG Interpretation by Me Additional EKG results interpreted by me: EKG with sinus rhythm at a rate of 70, QTC 449, normal axis, slightly flattened T waves anteriorly but no T wave inversions or ST segment changes in consecutive leads Discharge - Discharge Clinical Impression: Epigastric pain, Nausea Chest pain Qualifiers: Chest pain type: unspecified Qualified Code(s): R07.9 - Chest pain, unspecified Condition: Stable Disposition: HOME, SELF-CARE Additional Instructions: Your work-up is reassuring today. Your symptoms appear to be coming from your upper gastrointestinal tract, please follow-up with your supply chain associate next week as planned for additional evaluation and management. I do recommend you take the prescribed medications and also the nausea medication if needed. Start with bland food in progress. Return if you worsen including vomiting, vomiting blood, black stools, severe worsening pain, fever, or any other concerning symptoms. Prescriptions: Sucralfate [Carafate 1 gm Tablet] 1 gm PO QID #20 tablet Famotidine [Pepcid 20 mg Tablet] 20 mg PO BID #12 tablet Ondansetron [Zofran Odt 4 mg Tablet] 1 - 2 tab PO Q4H PRN #15 tab.rapdis PRN Reason: For Nausea/Vomiting
--- NOTE | 2019-03-07 00:55 | RADIOLOGY REPORT (SQ) ---
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 COMPARISON: 02/16/2019. FINDINGS: The heart size is within normal limits. No consolidation, pleural effusion, or pneumothorax is seen. Low lung volumes are seen. Mild atelectasis at the left lower lung zone. No acute bony findings. The left hemidiaphragm is elevated. IMPRESSION: No acute cardiopulmonary disease.
[2019-03-07 01:04] LABS: INTERNATIONAL RATION (INR) 1.01; PROTHROMBIN TIME 13.4 SEC (11.4-15.4)
[2019-03-07 01:05] LABS: PARTIAL THROMBOPLASTIN TIME 25.6 SEC (23.5-35.8)
[2019-03-07 01:08] LABS: ABSOLUTE BASOPHILS # (AUTO) 0.1 10^3/uL (0.0-0.2); ABSOLUTE EOSINOPHILS # (AUTO) 0.1 10^3/uL (0.0-0.6); ABSOLUTE LYMPHOCYTES (AUTO) 2.2 10^3/uL (0.5-4.7); ABSOLUTE MONOCYTES (AUTO) 0.5 10^3/uL (0.1-1.4); BASOPHILS % (AUTO) 1.1 % (0-2); EOSINOPHILS % (AUTO) 1.8 % (0-6); HEMATOCRIT 36.1 % (36.0-47.0); LYMPHOCYTES % (AUTO) 27.4 % (13-45); MEAN CORPUSCULAR HEMOGLOBIN 28.9 pg (27.0-33.4); MEAN CORPUSCULAR HGB CONC 33.1 g/dL (32.0-36.0); MEAN CORPUSCULAR VOLUME 87 fl (80-97); MONOCYTES % (AUTO) 6.7 % (3-13); PLATELET COUNT 180 10^3/uL (150-450); RED BLOOD COUNT 4.14 10^6/uL (3.72-5.28); RED CELL DISTRIBUTION WIDTH 14.1 % (11.5-14.0); TOTAL CELLS COUNTED % (AUTO) 100 %; WHITE BLOOD COUNT 7.9 10^3/uL (4.0-10.5)
[2019-03-07 01:17] LABS: ALKALINE PHOSPHATASE 119 U/L (38-126); ANION GAP 6 (5-19); ASPARTATE AMINO TRANSFERASE 19 U/L (14-36); BILIRUBIN,DIRECT 0.2 mg/dL (0.0-0.4); BILIRUBIN,TOTAL 0.4 mg/dL (0.2-1.3); BLOOD UREA NITROGEN 14 mg/dL (7-20); CARBON DIOXIDE 30 mmol/L (22-30); CHLORIDE 104 mmol/L (98-107); GLUCOSE 90 mg/dL (75-110); POTASSIUM 4.1 mmol/L (3.6-5.0); TOTAL PROTEIN 7.1 g/dL (6.3-8.2)
[2019-03-07] MEDS ORDERED: FAMOTIDINE 20 MG TABLET PO ONE (01:43)
[2019-03-07] MEDS ORDERED: OXYCODONE HCL IR 5 MG TABLET PO ONE ×2 (01:43→04:54)
[2019-03-07 04:30] VITALS: BP 121/69
[2019-03-07] MEDS ORDERED: SUCRALFATE 1 GM TABLET PO ONE (04:54)
--- NOTE | 2019-03-07 21:33 | EKG REPORT ---
SEVERITY:- BORDERLINE ECG - SINUS RHYTHM BORDERLINE T ABNORMALITIES, ANTERIOR LEADS : Confirmed by: Zarina Ordoñez 07-Mar-2019 21:32:27
--- NOTE | 2019-03-07 21:33 | EKG REPORT ---
SEVERITY:- NORMAL ECG - SINUS RHYTHM : Confirmed by: Zarina Ordoñez 07-Mar-2019 21:32:32
== END 2019-03-07 05:11 | disposition home or self-care (01) ==
LOC: ER 21:12
DX: R10.13 Epigastric pain (principal); R11.0 Nausea; R07.9 Chest pain, unspecified; R10.12 Left upper quadrant pain; Z90.49 Acquired absence of other specified parts of digestive tract; I25.2 Old myocardial infarction; Z90.710 Acquired absence of both cervix and uterus; Z79.02 Long term (current) use of antithrombotics/antiplatelets; Z79.899 Other long term (current) drug therapy; Z87.891 Personal history of nicotine dependence; I25.10 Atherosclerotic heart disease of native coronary artery without angina pectoris
CPT/HCPCS: 93005; 36415; 83690; 85025; 85610; 85730; 80053; 84484; 71046; 93010; A9270 ×4; J2270; 99284; S0119

== ENCOUNTER 2019-03-18 00:57 | Emergency (ER) | payer MEDICARE, MEDICAID ==
[2019-03-18 01:33] LABS: ABSOLUTE BASOPHILS # (AUTO) 0.1 10^3/uL (0.0-0.2); ABSOLUTE EOSINOPHILS # (AUTO) 0.1 10^3/uL (0.0-0.6); ABSOLUTE LYMPHOCYTES (AUTO) 1.8 10^3/uL (0.5-4.7); ABSOLUTE MONOCYTES (AUTO) 0.5 10^3/uL (0.1-1.4); ABSOLUTE NEUT (AUTO) 4.8 10^3/uL (1.7-8.2); BASOPHILS % (AUTO) 1.1 % (0-2); EOSINOPHILS % (AUTO) 1.7 % (0-6); HEMATOCRIT 37.5 % (36.0-47.0); HEMOGLOBIN 12.6 g/dL (12.0-15.5); LYMPHOCYTES % (AUTO) 24.6 % (13-45); MEAN CORPUSCULAR HEMOGLOBIN 28.9 pg (27.0-33.4); MEAN CORPUSCULAR HGB CONC 33.5 g/dL (32.0-36.0); MEAN CORPUSCULAR VOLUME 86 fl (80-97); MONOCYTES % (AUTO) 6.6 % (3-13); PLATELET COUNT 153 10^3/uL (150-450); RED BLOOD COUNT 4.34 10^6/uL (3.72-5.28); RED CELL DISTRIBUTION WIDTH 14.7 % (11.5-14.0); TOTAL CELLS COUNTED % (AUTO) 100 %; WHITE BLOOD COUNT 7.3 10^3/uL (4.0-10.5)
[2019-03-18 01:45] LABS: ALKALINE PHOSPHATASE 146 U/L (38-126); ANION GAP 8 (5-19); ASPARTATE AMINO TRANSFERASE 21 U/L (14-36); BILIRUBIN,DIRECT 0.1 mg/dL (0.0-0.4); BILIRUBIN,TOTAL 0.3 mg/dL (0.2-1.3); BLOOD UREA NITROGEN 14 mg/dL (7-20); CALCIUM 8.8 mg/dL (8.4-10.2); CARBON DIOXIDE 30 mmol/L (22-30); CHLORIDE 102 mmol/L (98-107); CREATINE KINASE 37 U/L (30-135); GLUCOSE 83 mg/dL (75-110); POTASSIUM 3.5 mmol/L (3.6-5.0); TOTAL PROTEIN 7.3 g/dL (6.3-8.2)
[2019-03-18 01:59] LABS: CREATINE KINASE MB < 0.22 ng/mL (<4.55); TROPONIN I < 0.012 ng/mL
--- NOTE | 2019-03-18 02:02 | RADIOLOGY REPORT (SQ) ---
Chest 2 view on 03/18/2019 at 1:36 AM CLINICAL INDICATION: Chest pain COMPARISON: 03/07/2019 FINDINGS: There is mild elevation of the left hemidiaphragm. There is adjacent linear atelectasis or scarring in the left lower lung. The lungs are otherwise clear. Cardiac, hilar and mediastinal contours are within normal limits. Pulmonary vascularity is within normal limits. IMPRESSION: No acute disease.
[2019-03-18] MEDS ORDERED: FAMOTIDINE INJ/PF 20 MG/2 ML SDV IV ONE (03:03)
[2019-03-18] MEDS ORDERED: ONDANSETRON HCL INJ/PF 4 MG/2 ML SDV IV ONE (03:03)
--- NOTE | 2019-03-18 05:35 | ER Document Report ---
ED Cardiac - General Chief Complaint: Chest Pain Stated Complaint: CHEST PAIN Time Seen by Provider: 03/18/19 01:48 Mode of Arrival: Ambulatory Information source: Patient Notes: Patient is a 53-year-old female presenting to the emergency department with chief complaint of left-sided chest pain that began at 2:30 in the afternoon yesterday. Patient reports it is a dull pain that is now turned into a heaviness. She reports associated nausea with vomiting x1. She reports the pain is located on the left side of the chest and under left breast. She states she took sublingual nitroglycerin x3 at home which did not help the pain. She does have a history of cardiac stents x2 and depression. Denies smoking drinking or any drug use. Patient takes Plavix, Cymbalta and trazodone. Serenity lopez sees cardiology in [place]. She has been seen in this emergency department multiple times over the last 2 months for this and has been admitted one time. The plan at that time was to do a stress test however due to lack of venous access this was unable to be performed. TRAVEL OUTSIDE OF THE [place] IN LAST 30 DAYS: No - Related Data Allergies/Adverse Reactions: acetaminophen [From Tylenol] Allergy (Verified 01/20/19 18:29) NSAIDS (Non-Steroidal Anti-Inflamma Allergy (Verified 01/19/19 18:58) Home Medications: Nitro Past Medical History - General Information source: Patient - Social History Smoking Status: Never Smoker Family History: CAD. denies: DM, Hyperlipidemia, Hypertension, Malignancy Patient has suicidal ideation: No Patient has homicidal ideation: No - Past Medical History Cardiac Medical History: Reports: Hx Coronary Artery Disease Denies: Hx Atrial Fibrillation, Hx Congestive Heart Failure, Hx Heart Attack, Hx Hypercholesterolemia, Hx Hypertension Pulmonary Medical History: Denies: Hx Asthma, Hx COPD Neurological Medical History: Denies: Hx Seizures Endocrine Medical History: Denies: Hx Diabetes Mellitus Type 1, Hx Diabetes Mellitus Type 2, Hx Hyperthyroidism, Hx Hypothyroidism GI Medical History: Reports: Hx Gastroesophageal Reflux Disease. Denies: Hx Cirrhosis, Hx Crohn's Disease, Hx Hepatitis, Hx Ulcerative Colitis Musculoskeletal Medical History: Denies Hx Arthritis, Denies Hx Gout Skin Medical History: Denies Hx Eczema, Denies Hx Psoriasis Psychiatric Medical History: Reports: Hx Depression Infectious Medical History: Denies: Hx Hepatitis Past Surgical History: Reports: Hx Cardiac Catheterization - x2, Hx Section, Hx Cholecystectomy, Hx Coronary Stent - X 2, Hx Tonsillectomy - Immunizations Hx Diphtheria, Pertussis, Tetanus Vaccination: Yes Review of Systems - Review of Systems Constitutional: No symptoms reported EENT: No symptoms reported Cardiovascular: Chest pain Respiratory: No symptoms reported Gastrointestinal: Nausea, Vomiting - x1 yesterday Genitourinary: No symptoms reported Female Genitourinary: No symptoms reported Musculoskeletal: No symptoms reported Skin: No symptoms reported Hematologic/Lymphatic: No symptoms reported Neurological/Psychological: No symptoms reported Physical Exam - Vital signs Vitals: Pulse Ox 99 03/18/19 01:00 - Notes Notes: PHYSICAL EXAMINATION: GENERAL: Well-appearing, well-nourished and in no acute distress. HEAD: Atraumatic, normocephalic. EYES: Pupils equal round and reactive to light, extraocular movements intact, conjunctiva are normal. ENT: Nares patent, oropharynx clear without exudates. Moist mucous membranes. NECK: Normal range of motion, supple without lymphadenopathy LUNGS: Breath sounds clear to auscultation bilaterally and equal. No wheezes ra les or rhonchi. HEART: Regular rate and rhythm without murmurs ABDOMEN: Soft, nontender, nondistended abdomen. No guarding, no rebound. No masses appreciated. Female : deferred Musculoskeletal: Normal range of motion, no pitting or edema. No cyanosis. NEUROLOGICAL: Cranial nerves grossly intact. Normal speech, normal gait. Normal sensory, motor exams PSYCH: Normal mood, normal affect. SKIN: Warm, Dry, normal turgor, no rashes or lesions noted. Course - Re-evaluation Re-evalutation: EKG shows a sinus rhythm, rate of 96, QTc 471. No ST segment elevations or depressions to suggest ischemia. Laboratory 03/18/19 03/18/19 03/18/19 01:20 01:20 01:20 WBC 7.3 RBC 4.34 Hgb 12.6 Hct 37.5 MCV 86 MCH 28.9 MCHC 33.5 RDW 14.7 H Plt Count 153 Lymph % (Auto) 24.6 Casey % (Auto) 6.6 Eos % (Auto) 1.7 Baso % (Auto) 1.1 Absolute Neuts (auto) 4.8 Absolute Lymphs (auto) 1.8 Absolute Monos (auto) 0.5 Absolute Eos (auto) 0.1 Absolute Basos (auto) 0.1 Seg Neutrophils % 66.0 Sodium 140.2 Potassium 3.5 L Chloride 102 Carbon Dioxide 30 Anion Gap 8 BUN 14 Creatinine 1.06 Est GFR ( Amer) > 60 Est GFR (MDRD) Non-Af 55 L Glucose 83 Calcium 8.8 Total Bilirubin 0.3 Direct Bilirubin 0.1 Neonat Total Bilirubin Not Reportable Neonat Direct Bilirubin Not Reportable Neonat Indirect Bili Not Reportable AST 21 ALT 11 Alkaline Phosphatase 146 H Creatine Kinase 37 CK-MB (CK-2) < 0.22 Troponin I < 0.012 Total Protein 7.3 Albumin 4.0 03/18/19 04:00 WBC RBC Hgb Hct MCV MCH MCHC RDW Plt Count Lymph % (Auto) Casey % (Auto) Eos % (Auto) Baso % (Auto) Absolute Neuts (auto) Absolute Lymphs (auto) Absolute Monos (auto) Absolute Eos (auto) Absolute Basos (auto) Seg Neutrophils % Sodium Potassium Chloride Carbon Dioxide Anion Gap BUN Creatinine Est GFR ( Amer) Est GFR (MDRD) Non-Af Glucose Calcium Total Bilirubin Direct Bilirubin Neonat Total Bilirubin Neonat Direct Bilirubin Neonat Indirect Bili AST ALT Alkaline Phosphatase Creatine Kinase CK-MB (CK-2) Troponin I < 0.012 Total Protein Albumin Chest X-Ray 03/18/19 00:00 IMPRESSION: No acute disease. Patient appears well, nontoxic, presenting with chest pain similar to recent visits in the emergency department. Patient states this pain started at 230 yesterday afternoon. Initial troponin was negative. Repeat EKG was performed and was unchanged from previous. Delta troponin negative. Patient is chest pain-free. Extensive discussion was had with patient regarding options for proceeding with stress test that was initially scheduled for 6 weeks ago. Patient states she is going back to [place] today and she will contact her production team advisor there for consideration of a stress test. Patient was invited to return to the emergency department anytime for any new or worsening symptoms. Patient is agreeable with this plan. The patient's emergency department workup and current diagnosis were explained to the patient and or family. Follow-up instructions were provided. Medications if prescribed were discussed. Instructions for when to return to the emergency department including specific worrisome symptoms were discussed with the patient and/or family. - Vital Signs Vital signs: Temp Pulse Resp BP Pulse Ox 98.2 F 18 100/56 L 95 03/18/19 05:25 03/18/19 05:01 03/18/19 05:01 03/18/19 05:01 - Laboratory Result Diagrams: 03/18/19 01:20 03/18/19 01:20 Laboratory results interpreted by me: 03/18/19 03/18/19 01:20 01:20 RDW 14.7 H Potassium 3.5 L Est GFR (MDRD) Non-Af 55 L Alkaline Phosphatase 146 H Discharge - Discharge Clinical Impression: Chest pain Qualifiers: Chest pain type: unspecified Qualified Code(s): R07.9 - Chest pain, unspecified Condition: Stable Disposition: HOME, SELF-CARE Additional Instructions: You were seen today for chest pain. The exact cause of your pain is unclear. However, based on your cardiac enzyme testing, chest x-ray, and EKG it does not appear that it is from an immediately life-threatening cause at this time. Although your testing here is normal is critical that you follow-up with your primary care physician for continued evaluation of this chest pain and possible stress testing. I recommended you see your physician within the next 24-48 hours to be evaluated for consideration of a stress test. Please return to emergency department immediately if you have worsening of your chest pain, shortness of breath, vomiting, become unable to exert yourself due to pain or difficulty breathing, you pass out, or have any pain that radiates into your arms, jaw, or back. Please also return if you have any additional symptoms that are concerning to you. Please call your production team advisor today, let them know you have been seen in the emergency department multiple times for chest pain and that you need follow-up and consideration of a stress test.
[2019-03-18 05:42] VITALS: BP 100/56
--- NOTE | 2019-03-18 07:39 | EKG REPORT ---
SEVERITY:- BORDERLINE ECG - SINUS RHYTHM BORDERLINE T ABNORMALITIES, ANTERIOR LEADS BORDERLINE PROLONGED QT INTERVAL : Confirmed by: Compa Kirkland MD 18-Mar-2019 07:38:30
--- NOTE | 2019-03-18 07:40 | EKG REPORT ---
SEVERITY:- BORDERLINE ECG - SINUS RHYTHM BORDERLINE T ABNORMALITIES, DIFFUSE LEADS : Confirmed by: Compa Kirkland MD 18-Mar-2019 07:39:38
== END 2019-03-18 05:50 | disposition home or self-care (01) ==
LOC: ER 00:57
DX: R07.9 Chest pain, unspecified (principal); R11.2 Nausea with vomiting, unspecified; F32.9 Major depressive disorder, single episode, unspecified; I25.10 Atherosclerotic heart disease of native coronary artery without angina pectoris; Z95.5 Presence of coronary angioplasty implant and graft; Z79.02 Long term (current) use of antithrombotics/antiplatelets; Z79.899 Other long term (current) drug therapy; Z88.8 Allergy status to other drugs, medicaments and biological substances
CPT/HCPCS: 93005; 36415; 82553; 82550; 85025; 80053; 84484; 71046; 93010; J2405; S0028; 96374; 96375; 99285

== ENCOUNTER 2019-03-27 19:06 | Emergency (ER) | payer MEDICARE, MEDICAID ==
[2019-03-27 21:07] LABS: ABSOLUTE BASOPHILS # (AUTO) 0.1 10^3/uL (0.0-0.2); ABSOLUTE EOSINOPHILS # (AUTO) 0.1 10^3/uL (0.0-0.6); ABSOLUTE LYMPHOCYTES (AUTO) 1.8 10^3/uL (0.5-4.7); ABSOLUTE MONOCYTES (AUTO) 0.5 10^3/uL (0.1-1.4); ABSOLUTE NEUT (AUTO) 4.7 10^3/uL (1.7-8.2); BASOPHILS % (AUTO) 0.9 % (0-2); EOSINOPHILS % (AUTO) 1.9 % (0-6); HEMATOCRIT 35.9 % (36.0-47.0); HEMOGLOBIN 11.9 g/dL (12.0-15.5); LYMPHOCYTES % (AUTO) 25.1 % (13-45); MEAN CORPUSCULAR HEMOGLOBIN 28.9 pg (27.0-33.4); MEAN CORPUSCULAR HGB CONC 33.1 g/dL (32.0-36.0); MEAN CORPUSCULAR VOLUME 87 fl (80-97); MONOCYTES % (AUTO) 6.9 % (3-13); PLATELET COUNT 184 10^3/uL (150-450); RED CELL DISTRIBUTION WIDTH 14.8 % (11.5-14.0); SEGMENTED NEUTROPHILS % (AUTO) 65.2 % (42-78); TOTAL CELLS COUNTED % (AUTO) 100 %; WHITE BLOOD COUNT 7.2 10^3/uL (4.0-10.5)
[2019-03-27 21:24] LABS: ALBUMIN 3.9 g/dL (3.5-5.0); ALKALINE PHOSPHATASE 133 U/L (38-126); ANION GAP 9 (5-19); ASPARTATE AMINO TRANSFERASE 19 U/L (14-36); BILIRUBIN,DIRECT 0.2 mg/dL (0.0-0.4); BILIRUBIN,TOTAL 0.3 mg/dL (0.2-1.3); BLOOD UREA NITROGEN 15 mg/dL (7-20); CALCIUM 8.7 mg/dL (8.4-10.2); CARBON DIOXIDE 27 mmol/L (22-30); CHLORIDE 104 mmol/L (98-107); CREATINE KINASE 26 U/L (30-135); GLUCOSE 83 mg/dL (75-110); POTASSIUM 4.1 mmol/L (3.6-5.0); TOTAL PROTEIN 7.1 g/dL (6.3-8.2)
[2019-03-27 21:37] LABS: CREATINE KINASE MB < 0.22 ng/mL (<4.55); TROPONIN I < 0.012 ng/mL
[2019-03-27] MEDS ORDERED: ONDANSETRON 4 MG TAB.RAPDIS PO ONE (23:48)
[2019-03-27] MEDS ORDERED: TRAMADOL HCL 50 MG TABLET PO ONE (23:56)
--- NOTE | 2019-03-28 00:08 | ER Document Report ---
ED Cardiac - General Chief Complaint: Chest Pain Stated Complaint: CHEST PAIN Time Seen by Provider: 03/27/19 23:21 TRAVEL OUTSIDE OF THE [place] IN LAST 30 DAYS: No - Related Data Allergies/Adverse Reactions: acetaminophen [From Tylenol] Allergy (Verified 01/20/19 18:29) NSAIDS (Non-Steroidal Anti-Inflamma Allergy (Verified 01/19/19 18:58) Past Medical History - Social History Smoking Status: Unknown if Ever Smoked Family History: CAD. denies: DM, Hyperlipidemia, Hypertension, Malignancy Patient has suicidal ideation: No Patient has homicidal ideation: No - Past Medical History Cardiac Medical History: Reports: Hx Coronary Artery Disease Denies: Hx Atrial Fibrillation, Hx Congestive Heart Failure, Hx Heart Attack, Hx Hypercholesterolemia, Hx Hypertension Pulmonary Medical History: Denies: Hx Asthma, Hx COPD Neurological Medical History: Denies: Hx Seizures Endocrine Medical History: Denies: Hx Diabetes Mellitus Type 1, Hx Diabetes Mellitus Type 2, Hx Hyperthyroidism, Hx Hypothyroidism GI Medical History: Reports: Hx Gastroesophageal Reflux Disease. Denies: Hx Cirrhosis, Hx Crohn's Disease, Hx Hepatitis, Hx Ulcerative Colitis Musculoskeletal Medical History: Denies Hx Arthritis, Denies Hx Gout Skin Medical History: Denies Hx Eczema, Denies Hx Psoriasis Psychiatric Medical History: Reports: Hx Depression Infectious Medical History: Denies: Hx Hepatitis Past Surgical History: Reports: Hx Cardiac Catheterization - x2, Hx Section, Hx Cholecystectomy, Hx Coronary Stent - X 2, Hx Tonsillectomy - Immunizations Hx Diphtheria, Pertussis, Tetanus Vaccination: Yes Physical Exam - Vital signs Vitals: Temp Pulse Resp BP Pulse Ox 97.4 F 103 H 16 119/80 95 03/27/19 19:20 03/27/19 19:20 03/27/19 19:20 03/27/19 19:20 03/27/19 19:20 Interpretation: Normal - Notes Notes: Patient presents emergency department complaining of chest pain is been going on for about 9 hours. Patient the pain is located in her left breast and radiates into her left arm. Initially describes as a stabbing sensation worse with breathing but not with movement. She has some nausea with this but no vomiting also has some shortness of breath and questionable palpitations but no diaphoresis fevers or cough. The pain is similar to what she said before with the previous heart pain. She took nitroglycerin 30 minutes x 3 with some relief of the pain but it never went away. She says frequently the nitroglycerin does not really help. She says the pain is similar to the pain she had before when she was here on both March 18 and March 07. Port[place] that sometimes you get the pain every day for weeks at a time and other times she will go months without the pain. She says she saw her spray gunner about 2 months ago because of increasing frequency of the pain and was scheduled for stress test but when they got to the hospital were not able to do the test?? But they have rescheduled it. Patient reports that she has a spray gunner in [place] but she is down here visiting for the past month. She denies any recent travel or immobilization and hormone replacement. There is no family history of venous normal embolism. Upon further questioning the pain was similar to her previous heart attack pain she says that was more like a tightness but then later said that pain today is somewhat of a tightness but also a stabbing pain His medical history is significant for hypertension elevated cholesterol as well as coronary artery disease with stent placed about 4 years ago. Had any additional hospitalizations since then. She does not smoke or drink at all. Medications she was on Vicodin and Valium and Ultram in the past but none recently. She reports an allergy to Tylenol which causes hives Review of systems pertinent positives and negatives in HPI otherwise all the sys tems were reviewed and acutely negative PHYSICIAN EXAM -vital signs are noted triage note and note from triage reviewed GENERAL: Well-appearing, well-nourished and in _no acute distress HEAD: Atraumatic, normocephalic. EYES: Pupils equal round and reactive to light, extraocular movements intact, sclera anicteric, conjunctiva are normal. ENT: nares patent, oropharynx clear without exudates. Moist mucous membranes. NECK: supple without lymphadenopathy LUNGS: Breath sounds clear to auscultation bilaterally and equal. No wheezes rales or rhonchi. HEART: Regular rate and rhythm without murmurs ABDOMEN: Soft, nontender, normoactive bowel sounds. EXTREMITIES: No deformity, no edema. No palpable cords NEUROLOGICAL: No focal neurological deficits. Moves all extremities spontaneously and on command. PSYCH: Normal mood, flat affect SKIN: Warm, Dry, normal turgor, no rashes or lesions noted. BACK-nontender in the midline Addendum I did review her previous ED visits Differential diagnosis includes angina or anxiety pleurisy Course - Vital Signs Vital signs: Temp Pulse Resp BP Pulse Ox 97.4 F 103 H 14 101/66 94 03/27/19 19:20 03/27/19 19:20 03/27/19 23:01 03/27/19 23:01 03/27/19 23:01 - Laboratory Result Diagrams: 03/27/19 20:54 03/27/19 20:54 Laboratory results interpreted by me: 03/27/19 03/27/19 20:54 20:54 Hgb 11.9 L Hct 35.9 L RDW 14.8 H Est GFR (MDRD) Non-Af 56 L Alkaline Phosphatase 133 H Creatine Kinase 26 L Discharge - Discharge Clinical Impression: Chest pain Condition: Good Disposition: HOME, SELF-CARE Instructions: Chest Pain of Unclear Cause ([facility]) Additional Instructions: Please review the discharge instructions, they will tell you about your disease/injury and what you need to return to the ED for Return to the ED if you feel worse or can follow-up with your family doctor Follow-up with your spray gunner in 2 to 3 days Prescriptions: Ondansetron HCl [Zofran 4 mg Tablet] 1 tab PO Q4H PRN #10 tablet PRN Reason:
--- NOTE | 2019-03-28 00:26 | RADIOLOGY REPORT (SQ) ---
EXAM DESCRIPTION: XR CHEST 2 VIEWS COMPLETED DATE/TME: 03/27/2019 23:48 CLINICAL HISTORY: 53 years, Female, Chest pain COMPARISON: 03/18/2019 chest NUMBER OF VIEWS: 2 TECHNIQUE: 2 view chest LIMITATIONS: None. FINDINGS: Heart size is stable. Subsegmental atelectasis left lung base. No pneumothorax. Lungs are otherwise clear IMPRESSION: No acute cardiopulmonary process copyright 2010 [employer]- All Rights Reserved
[2019-03-28 01:11] VITALS: BP 103/72
--- NOTE | 2019-03-28 12:35 | EKG REPORT ---
SEVERITY:- BORDERLINE ECG - SINUS TACHYCARDIA BORDERLINE T ABNORMALITIES, INFERIOR LEADS : Confirmed by: Zarina Ordoñez 28-Mar-2019 12:35:01
== END 2019-03-28 01:09 | disposition home or self-care (01) ==
LOC: ER 19:06
DX: R07.9 Chest pain, unspecified (principal); N64.4 Mastodynia; R11.0 Nausea; R06.02 Shortness of breath; I25.10 Atherosclerotic heart disease of native coronary artery without angina pectoris; Z88.8 Allergy status to other drugs, medicaments and biological substances; Z95.5 Presence of coronary angioplasty implant and graft
CPT/HCPCS: 93005; 36415; 82553; 82550; 85025; 80053; 84484; 71046; 93010; A9270 ×2; 99285; S0119

== ENCOUNTER 2019-05-01 22:35 | Emergency (ER) | payer MEDICARE, MEDICAID ==
--- NOTE | 2019-05-02 00:16 | RADIOLOGY REPORT (SQ) ---
EXAM DESCRIPTION: XR CHEST 2 VIEWS COMPLETED DATE/TME: 05/01/2019 00:00 CLINICAL HISTORY: 53 years, Female, Chest pain COMPARISON: 03/28/2019 NUMBER OF VIEWS: Two TECHNIQUE: Two views of the chest LIMITATIONS: None. FINDINGS: There is stable left basilar atelectasis/scarring. There is no focal consolidation. The heart is normal in size. There is no pneumothorax or pleural effusion. There are dilated loops small bowel which measure up to with an air-fluid level which measures up to 4.1 cm in diameter. Cholecystectomy clips are noted. IMPRESSION: No acute cardiopulmonary abnormality. Dilated loops of small bowel with air-fluid levels, which may be due to an obstruction or ileus. copyright 2010 [employer]- All Rights Reserved
[2019-05-02 00:51] LABS: ABSOLUTE BASOPHILS # (AUTO) 0.1 10^3/uL (0.0-0.2); ABSOLUTE EOSINOPHILS # (AUTO) 0.1 10^3/uL (0.0-0.6); ABSOLUTE LYMPHOCYTES (AUTO) 1.5 10^3/uL (0.5-4.7); ABSOLUTE MONOCYTES (AUTO) 0.5 10^3/uL (0.1-1.4); ABSOLUTE NEUT (AUTO) 4.1 10^3/uL (1.7-8.2); BASOPHILS % (AUTO) 1.1 % (0-2); EOSINOPHILS % (AUTO) 1.5 % (0-6); HEMATOCRIT 36.8 % (36.0-47.0); HEMOGLOBIN 12.4 g/dL (12.0-15.5); MEAN CORPUSCULAR HEMOGLOBIN 29.7 pg (27.0-33.4); MEAN CORPUSCULAR HGB CONC 33.7 g/dL (32.0-36.0); MEAN CORPUSCULAR VOLUME 88 fl (80-97); MONOCYTES % (AUTO) 7.4 % (3-13); PLATELET COUNT 227 10^3/uL (150-450); RED BLOOD COUNT 4.18 10^6/uL (3.72-5.28); RED CELL DISTRIBUTION WIDTH 18.6 % (11.5-14.0); TOTAL CELLS COUNTED % (AUTO) 100 %; WHITE BLOOD COUNT 6.1 10^3/uL (4.0-10.5)
[2019-05-02 01:17] LABS: ALBUMIN 4.1 g/dL (3.5-5.0); ALKALINE PHOSPHATASE 123 U/L (38-126); ANION GAP 9 (5-19); ASPARTATE AMINO TRANSFERASE 24 U/L (14-36); BILIRUBIN,DIRECT 0.3 mg/dL (0.0-0.4); BILIRUBIN,TOTAL 0.5 mg/dL (0.2-1.3); BLOOD UREA NITROGEN 10 mg/dL (7-20); CALCIUM 9.1 mg/dL (8.4-10.2); CARBON DIOXIDE 29 mmol/L (22-30); CHLORIDE 103 mmol/L (98-107); CREATINE KINASE 33 U/L (30-135); GLUCOSE 84 mg/dL (75-110); TOTAL PROTEIN 7.6 g/dL (6.3-8.2)
[2019-05-02 01:30] LABS: CREATINE KINASE MB < 0.22 ng/mL (<4.55); TROPONIN I < 0.012 ng/mL
[2019-05-02] MEDS ORDERED: NORMAL SALINE 1000 ML 1,000 ML IV ONE (04:51)
[2019-05-02] MEDS ORDERED: ONDANSETRON HCL INJ/PF 4 MG/2 ML SDV IV ONE ×3 (04:51→18:00)
[2019-05-02] MEDS ORDERED: MORPHINE SULFATE 10 MG/ML INJ IV ONE ×3 (04:51→18:04)
--- NOTE | 2019-05-02 04:53 | ER Document Report ---
ED General - General TRAVEL OUTSIDE OF THE [place]. IN LAST 30 DAYS: No <GILBERT MCKNIGHT - Last Filed: 05/02/19 08:43> <JOSIAH, - Last Filed: 05/02/19 18:39> - General Chief Complaint: Chest Pain > 30 Stated Complaint: CHEST PAIN Time Seen by Provider: 05/02/19 04:38 Notes: Patient is a 53-year-old female that comes to the emergency department for chief complaint of pain in her mid chest, upper abdomen, and nausea that started at 1 PM yesterday. She denies vomiting but she states she did not eat anything all day because she was so nauseated. She had a normal bowel movement yesterday. She denies fever/chills, difficulty breathing, cough, fever. Past medical history does include [facility] with stents in 2017 in [place], DVT on Eliquis, GERD, gastric bypass, cholecystectomy, hysterectomy, former smoker. (GILBERT MCKNIGHT) - Related Data Allergies/Adverse Reactions: acetaminophen [From Tylenol] Allergy (Verified 05/01/19 23:24) aspirin Allergy (Verified 05/01/19 23:24) NSAIDS (Non-Steroidal Anti-Inflamma Allergy (Verified 05/01/19 23:24) Past Medical History - General Information source: Patient - Social History Smoking Status: Former Smoker Frequency of alcohol use: None Drug Abuse: None Lives with: Family Family History: CAD. denies: DM, Hyperlipidemia, Hypertension, Malignancy Patient has suicidal ideation: No Patient has homicidal ideation: No - Past Medical History Cardiac Medical History: Reports: Hx Coronary Artery Disease Denies: Hx Atrial Fibrillation, Hx Congestive Heart Failure, Hx Heart Attack, Hx Hypercholesterolemia, Hx Hypertension Pulmonary Medical History: Denies: Hx Asthma, Hx COPD Neurological Medical History: Denies: Hx Seizures Endocrine Medical History: Denies: Hx Diabetes Mellitus Type 1, Hx Diabetes Mellitus Type 2, Hx Hyperthyroidism, Hx Hypothyroidism Renal/ Medical History: Reports: Hx Kidney Stones GI Medical History: Reports: Hx Gastroesophageal Reflux Disease. Denies: Hx Cirrhosis, Hx Crohn's Disease, Hx Hepatitis, Hx Ulcerative Colitis Musculoskeletal Medical History: Denies Hx Arthritis, Denies Hx Gout Skin Medical History: Denies Hx Eczema, Denies Hx Psoriasis Psychiatric Medical History: Reports: Hx Depression Infectious Medical History: Denies: Hx Hepatitis Past Surgical History: Reports: Hx Cardiac Catheterization - x2, Hx Section, Hx Cholecystectomy, Hx Coronary Stent - X 2, Hx Genitourinary Surgery - Gastric bypass, Hx Tonsillectomy - Immunizations Hx Diphtheria, Pertussis, Tetanus Vaccination: Yes <GILBERT MCKNIGHT - Last Filed: 05/02/19 08:43> Review of Systems - Review of Systems Constitutional: No symptoms reported EENT: No symptoms reported Cardiovascular: See HPI Respiratory: No symptoms reported Gastrointestinal: See HPI Genitourinary: No symptoms reported Female Genitourinary: No symptoms reported Musculoskeletal: No symptoms reported Skin: No symptoms reported Hematologic/Lymphatic: No symptoms reported Neurological/Psychological: No symptoms reported <GILBERT MCKNIGHT - Last Filed: 05/02/19 08:43> Physical Exam <GILBERT MCKNIGHT - Last Filed: 05/02/19 08:43> - Vital signs Vitals: Temp Pulse Resp BP Pulse Ox 98.6 F 104 H 16 126/68 H 100 05/01/19 22:47 05/01/19 22:47 05/01/19 22:47 05/01/19 22:47 05/01/19 22:47 - Notes Notes: GENERAL: Alert, interacts well. No acute distress. HEAD: Normocephalic, atraumatic. EYES: Pupils equal, round, and reactive to light. Extraocular movements intact. ENT: Oral mucosa moist, tongue midline. Oropharynx unremarkable. Airway patent. LUNGS: Clear to auscultation bilaterally, no wheezes, rales, or rhonchi. No respiratory distress. HEART: Regular rate and rhythm. No murmur ABDOMEN: Some generalized tenderness in the upper abdomen, lower abdomen benign, no overt distention, bowel sounds present. GENITOURINARY: Deferred EXTREMITIES: Moves all 4 extremities spontaneously. No edema, normal radial and dorsalis pedis pulses bilaterally. No cyanosis. BACK: no cervical, thoracic, lumbar midline tenderness. No saddle anesthesia, normal distal neurovascular exam. Moves all extremities in full range of motion. NEUROLOGICAL: Alert and oriented x3. Normal speech. Cranial nerves II through XII grossly intact. PSYCH: Flat affect SKIN: Warm, dry, normal turgor. No rashes or lesions noted. (GILBERT MCKNIGHT) Course - Laboratory Result Diagrams: 05/02/19 00:38 05/02/19 00:38 <GILBERT MCKNIGHT - Last Filed: 05/02/19 08:43> - Laboratory Result Diagrams: 05/02/19 00:38 05/02/19 00:38 - Diagnostic Test Radiology reviewed: Reports reviewed <REBECCA RAHMAN - Last Filed: 05/02/19 18:39> - Re-evaluation Re-evalutation: Patient has some epigastric discomfort on evaluation, remaining exam is unremarkable. Patient with a flat affect and does not appear to be in distress. Vital signs unremarkable. CBC, chemistry, lipase unremarkable, troponin negative, EKG without acute changes. Chest x-ray showing air-fluid levels in the upper abdomen. Patient does have history of gastric bypass and cholecystectomy. Because of her constant pain, nausea, CAT scan will be performed to rule out obstruction or acute pathology. Patient states agreement. Troponin cycled and negative. We had a lot of difficulty with good IV access for contrast therefore CAT scan was performed with oral contrast only. (GILBERT MCKNIGHT) 05/02/19 11:[address] of the abdomen did not show any acute abnormality. Upon further discussion with the patient she reports that she does have a history of PE. Patient reports she is supposed to take Eliquis daily but quit this 4 months ago because she felt like she did not need it anymore. She states she did call her doctor up at [place] yesterday to report the shortness of breath and chest pain who recommended she go to the emergency department to be evaluated for pulmonary embolus and to be admitted to the hospital to initiate anticoagulation. I did speak with my attending Dr. Harrington who recommends obtaining a CTA of the chest to rule out clot. Patient does have a good working IV in the left AC. 05/02/19 12:06 The left AC is not working and is positional. Will order a VQ scan. Patient has been stuck multiple times throughout the night which is why they did not do IV contrast for her CAT scan. 05/02/19 18:08 Patient reports that the morphine and Zofran helped her chest pain earlier. Patient reports she has been seen in the emergency department for chest pain multiple times over the past few months and only thing that helps is morphine. Did inform the patient that I will give her 1 dose prior to discharge. Patient did have 2- cardiac enzymes. EKG without acute changes, CBC, chemistry, lipase unremarkable. Patient has been resting comfortably in the supine position with head elevated all day without significant shortness of breath or severe chest pain. I did inform the patient to call her doctor on Saturday in [place] to make a follow-up appointment and that she should continue her Eliquis due to her history of blood clots. Patient reports she does have doses of this medication at home. Patient nontoxic-appearing in no acute distress. Patient is nontoxic- appearing at discharge. Patient is not tachycardic, hypotensive or febrile. (REBECCA RAHMAN) - Vital Signs Vital signs: Temp Pulse Resp BP Pulse Ox 97.8 F 99 16 106/74 96 05/02/19 18:23 05/02/19 02:48 05/02/19 18:23 05/02/19 18:23 05/02/19 18:23 - Laboratory Laboratory results interpreted by me: 05/02/19 05/02/19 00:38 00:38 RDW 18.6 H Lipase 19.7 L - Diagnostic Test Radiology results interpreted by nj: 05/02/19 10:13 Chest X-Ray 05/01/19 00:00 IMPRESSION: No acute cardiopulmonary abnormality. Dilated loops of small bowel with air-fluid levels, which may be due to an obstruction or ileus. copyright 2010 [employer]- All Rights Reserved Abdomen/Pelvis CT 05/02/19 00:00 IMPRESSION: Failed gastric bypass with oral contrast filling the stomach and duodenum. No upper abdominal oral contrast extravasation. No CT evidence of bowel obstruction or free air/free fluid. 05/02/19 18:00 Chest X-Ray 05/01/19 00:00 IMPRESSION: No acute cardiopulmonary abnormality. Dilated loops of small bowel with air-fluid levels, which may be due to an obstruction or ileus. copyright 2010 [employer]- All Rights Reserved Abdomen/Pelvis CT 05/02/19 00:00 IMPRESSION: Failed gastric bypass with oral contrast filling the stomach and duodenum. No upper abdominal oral contrast extravasation. No CT evidence of bowel obstruction or free air/free fluid. Lung Scan-VQ NM 05/02/19 12:05 IMPRESSION: Elevation of the left hemidiaphragm. No suspicious ventilation or perfusion defect. Low probability examination for pulmonary embolism by modified PIOPED criteria. (REBECCA RAHMAN) Discharge <GILBERT MCKNIGHT - Last Filed: 05/02/19 08:43> <REBECCA RAHMAN - Last Filed: 05/02/19 18:39> - Discharge Clinical Impression: Chest pain Qualifiers: Chest pain type: unspecified Qualified Code(s): R07.9 - Chest pain, unspecified Condition: Stable Disposition: HOME, SELF-CARE Additional Instructions: *Today was seen in the emergency department for chest pain. You had reported being off your Eliquis for months. We did obtain multiple imaging to make sure that you do not have a blood clot. Your VQ scan showed a low probability of blood clot. We also obtain a CT of your abdomen which did not show any acute abnormality such as a perforation. You have not had any vomiting or diarrhea since being here in the emergency department. Please follow-up with your card iologist on Saturday. Please return to the emergency department if you develop any new or worsening symptoms such as severe chest pain, shortness of breath, severe abdominal pain, vomiting or diarrhea. CHEST PAIN OF UNCLEAR CAUSE: The exact cause of your chest pain isn't clear. Fortunately, there is no evidence of a dangerous medical condition. Further testing may be required to find the source of the pain. Most often, we find that this pain is coming from the chest wall -- the muscles or rib joints in the chest. But chest pain can come from the lung and lung lining, the esophagus, the heart valves or heart lining, and even the stomach or gallbladder. Rest. Eat lightly until the pain is gone. We may prescribe medicine for pain and inflammation. You should call the physician immediately if the pain radiates to the shoulder, jaw or arms; if you start to run a fever or develop a cough; or if you develop shortness of breath, or other new or alarming symptoms. NORMAL EXAM AND WORKUP: At this time, your examination and workup show no significant abnormality. No significant abnormal physical findings were noted. All laboratory, EKG, and imaging (x-ray, CT scans, ultrasound) studies that were ordered show no significant abnormality. Although your examination and all studies that were ordered showed no significant abnormal finding, there are no examinations and no studies that are 100% accurate. There is always the possibility that some abnormality could exist and not be detected with physical examination or within the limits and capabilities of laboratory and other studies. You should return or follow up as you were instructed on your visit today for further evaluation if your symptoms do not resolve. ACID REFLUX DISEASE (GERD): Gastro-Esophageal Reflux Disease (GERD) is caused by stomach acid refluxing back up into the esophagus. The valve at the end of the esophagus may be weak. This is common in persons with a hiatal hernia. GERD symptoms can include indigestion, chest pain, heartburn, or food "sticking." Certain foods, alcohol, and aspirin can make GERD worse. Treatment depends on the severity. Usually, antacids or acid-suppressing medicines are used. When the esophagus is acutely inflamed, the physician will often prescribe membrane-protective drugs such as Carafate. Some patients benefit from medication such as Reglan that tightens the valve at the top of the stomach. Avoid those foods that bring on your symptoms. For many people, these foods are coffee, chocolate, onions, garlic, and carbonated drinks. Don't use alcohol, aspirin, caffeine, or tobacco. Don't eat late at night -- within 4 hours of bedtime. Don't over-eat. If necessary, elevate the head of your bed about 4 inches so that stomach acid will not roll up into your esophagus. Call the doctor if you develop severe chest pain, inability to swallow fluids, fever, or worsening symptoms. ANTACID THERAPY: You have been instructed to start antacid therapy. Antacids directly neutralize stomach acid. This is useful for acid irritation of the esophagus, gastritis, and ulcers. You should take two tablespoons of antacid one hour after each meal and three hours after each meal. If you are not eating, take the antacid every two hours. If you are using a concentrate (such as Maalox TC), use only one tablesp oon. Many antacids affect the bowels. The most common problem is diarrhea. In this case, a pure aluminum hydroxide antacid (such as AlternaGel) can be substituted for some or all doses. If the problem is constipation, add a teaspoon of Milk of Magnesia to each dose. Call the doctor if you experience continued diarrhea or constipation, or if you develop lightheadedness, bloody stool or vomitus, severe abdominal pain, or black stool. PRILOSEC (ACID PUMP INHIBITOR): Prilosec (omeprazole) is an acid-pump inhibitor. It blocks the secretion of hydrogen ions in the acid-producing cells of the stomach. Prilosec keeps your stomach from making acid. Take all medication as prescribed, even after the pain is gone. Regular antacids may be added as needed if you have symptoms while taking this medicine. There are usually no side effects from this medication. Contact your doctor if there is fever, rash, yellow skin color, increasing abdominal pain, weakness, or unusual bruising. Return at once if you develop lightheadedness, black or bloody stool, or bloody vomitus. FOLLOW-UP CARE: If you have been referred to a physician for follow-up care, call the [facility] office for an appointment as you were instructed or within the next two days. If you experience worsening or a significant change in your symptoms, notify the physician immediately or return to the Emergency Department at any time for re-evaluation.
[2019-05-02] MEDS ORDERED: ONDANSETRON 4 MG TAB.RAPDIS PO ONE (07:59)
[2019-05-02] MEDS ORDERED: MORPHINE SULFATE 10 MG/ML INJ IM ONE (07:59)
--- NOTE | 2019-05-02 08:18 | EKG REPORT ---
SEVERITY:- BORDERLINE ECG - SINUS RHYTHM : Confirmed by: Compa Kirkland MD 02-May-2019 08:17:59
--- NOTE | 2019-05-02 08:18 | EKG REPORT ---
SEVERITY:- OTHERWISE NORMAL ECG - SINUS TACHYCARDIA : Confirmed by: Compa Kirkland MD 02-May-2019 08:18:28
--- NOTE | 2019-05-02 09:35 | RADIOLOGY REPORT (SQ) ---
EXAM DESCRIPTION: CT ABD/PELVIS ORAL ONLY COMPLETED DATE/TIME: 05/02/2019 7:48 am REASON FOR STUDY: upper abdominal pain, nausea, abnormal CXR COMPARISON: Two-view chest 05/01/2019 TECHNIQUE: CT scan of the abdomen and pelvis performed without intravenous contrast. Patient drank oral contrast. Images reviewed with lung, soft tissue, and bone windows. Reconstructed coronal and sagittal MPR imag es reviewed. All images stored on PACS. All CT scanners at this facility use dose modulation, iterative reconstruction, and/or weight based d osing when appropriate to reduce radiation dose to as low as reasonably achievable (ALARA). [facility]: Dose Right [facility]: CareDose [facility]: Dose Right [facility]: Teradose 4D [facility]: [employer] RADIATION DOSE: CT Rad equipment meets quality standard of care and radiation dose reduction techniq ues were employed. CTDIvol: 20.2 mGy. DLP: 1148 mGy-cm.mGy. LIMITATIONS: None. FINDINGS: Patient drank oral contrast. There is a failed gastric bypass, with oral contrast in the [place] stomach, antrum pylorus and duodenum. Anti colloid Mirna loop is present which is patent. No dilated small bowel loops worrisome for bowel obstruction. Colon decompressed. Small gastric bypass fundal pouch is decompressed. LOWER CHEST: Very dense right coronary artery, question stent. Lung bases are free of focal infiltra tiffanie NON-CONTRASTED LIVER, SPLEEN, ADRENALS: Evaluation limited by lack of IV contrast. No identified sign ificant masses. PANCREAS: No masses. No peripancreatic inflammatory changes. GALLBLADDER: Surgically absent RIGHT KIDNEY AND URETER: No suspicious masses. Assessment limited by lack of IV contrast. No signif icant calcifications. No hydronephrosis or hydroureter. LEFT KIDNEY AND URETER: No suspicious masses. Assessment limited by lack of IV contrast. No signifi cant calcifications. No hydronephrosis or hydroureter. AORTA AND RETROPERITONEUM: No aneurysm. No retroperitoneal masses or adenopathy. BOWEL AND PERITONEAL CAVITY: As above APPENDIX: Normal. PELVIS, BLADDER, AND ABDOMINAL WALL:No abnormal masses. No free fluid. Bladder normal. Post hysterec abhishek BONES: Old kyphoplasties at L1 and L2. Right total hip replacement OTHER: No other significant finding. IMPRESSION: Failed gastric bypass with oral contrast filling the stomach and duodenum. No upper abd ominal oral contrast extravasation. No CT evidence of bowel obstruction or free air/free fluid. COMMENT: Quality ID # [id number]: Final reports with documentation of one or more dose reduction techniques (e.g., Automated exposure control, adjustment of the mA and/or kV according to patient size, use of iterative reconstruction technique) TECHNICAL DOCUMENTATION: JOB ID: [id number] [employer]- All Rights Reserved Reading location - IP/workstation name: [email or web address]
--- NOTE | 2019-05-02 17:51 | RADIOLOGY REPORT (SQ) ---
EXAM DESCRIPTION: NM LUNG PERFUSION SCAN; NM LUNG VENTILATION SCAN COMPLETED DATE/TIME: 05/02/2019 5:33 pm; 05/02/2019 4:38 pm REASON FOR STUDY: CP; chest pain, rule out PE COMPARISON: Chest radiograph, 05/01/2019 RADIONUCLIDE AND DOSE: 4.7 millicuries TC-99m MAA Intravenous 32.6 millicuries TC-99m DTPA Inhaled aerosol TECHNIQUE: Eight views of the lungs acquired post ventilation of DTPA aerosol. Eight matching views of the lungs acquired following injection of MAA. LIMITATIONS: None. FINDINGS: VENTILATION: Elevation of the left hemidiaphragm. Bronchial clumping. Symmetric and john ogeneous distribution of DTPA aerosol during ventilatory phase. No significant areas of photopenia. PERFUSION: Elevation of the left hemidiaphragm. Perfusion images with normal homogenous activity and no wedge-shaped or segmental defects. No ventilation-perfusion mismatches. OTHER: No other significant finding. IMPRESSION: Elevation of the left hemidiaphragm. No suspicious ventilation or perfusion defect. Lo w probability examination for pulmonary embolism by modified PIOPED criteria. TECHNICAL DOCUMENTATION: JOB ID: [id number] [facility]- All Rights Reserved Reading location - IP/workstation name: [email or web address]
--- NOTE | 2019-05-02 17:51 | RADIOLOGY REPORT (SQ) ---
EXAM DESCRIPTION: NM LUNG PERFUSION SCAN; NM LUNG VENTILATION SCAN COMPLETED DATE/TIME: 05/02/2019 5:33 pm; 05/02/2019 4:38 pm REASON FOR STUDY: CP; chest pain, rule out PE COMPARISON: Chest radiograph, 05/01/2019 RADIONUCLIDE AND DOSE: 4.7 millicuries TC-99m MAA Intravenous 32.6 millicuries TC-99m DTPA Inhaled aerosol TECHNIQUE: Eight views of the lungs acquired post ventilation of DTPA aerosol. Eight matching views of the lungs acquired following injection of MAA. LIMITATIONS: None. FINDINGS: VENTILATION: Elevation of the left hemidiaphragm. Bronchial clumping. Symmetric and john ogeneous distribution of DTPA aerosol during ventilatory phase. No significant areas of photopenia. PERFUSION: Elevation of the left hemidiaphragm. Perfusion images with normal homogenous activity and no wedge-shaped or segmental defects. No ventilation-perfusion mismatches. OTHER: No other significant finding. IMPRESSION: Elevation of the left hemidiaphragm. No suspicious ventilation or perfusion defect. Lo w probability examination for pulmonary embolism by modified PIOPED criteria. TECHNICAL DOCUMENTATION: JOB ID: [id number] [employer]- All Rights Reserved Reading location - IP/workstation name: [email or web address]
[2019-05-02 18:29] VITALS: BP 106/74
== END 2019-05-02 18:35 | disposition home or self-care (01) ==
LOC: ER 22:35
DX: R07.9 Chest pain, unspecified (principal); R10.10 Upper abdominal pain, unspecified; R11.0 Nausea; Z86.718 Personal history of other venous thrombosis and embolism; Z79.01 Long term (current) use of anticoagulants; Z98.84 Bariatric surgery status; Z90.49 Acquired absence of other specified parts of digestive tract; Z90.710 Acquired absence of both cervix and uterus; Z87.891 Personal history of nicotine dependence; I25.10 Atherosclerotic heart disease of native coronary artery without angina pectoris
CPT/HCPCS: 93005 ×2; 96376; 99285; 96361; 96374; 96375; 36415; 82553; 82550; 83690; 85025; 80053; 84484; 71046; 78580; 78579; 74176; 93010 ×2; A9540; A9567; J2270; J2405; J7030; Q9969

== ENCOUNTER 2019-06-25 00:38 | Emergency (ER) | payer MEDICARE, MEDICAID ==
[2019-06-25 00:47] VITALS: BP 141/98
== END 2019-06-25 03:50 | disposition left against medical advice (07) ==
LOC: ER 00:38
DX: Z53.21 Procedure and treatment not carried out due to patient leaving prior to being seen by health care provider (principal)

== ENCOUNTER 2019-06-28 10:35 | Observation (INO) | payer MEDICARE, MEDICAID ==
--- NOTE | 2019-06-28 10:54 | ER Document Report ---
ED Medical Screen (RME) - General Chief Complaint: Chest Pain Stated Complaint: CHEST PAIN Time Seen by Provider: 06/28/19 10:48 Notes: Patient is a 54-year-old female with a history of 2 cardiac stents and congestive heart failure who presents emergency department with a chief complaint of chest pain. Patient reports she has had left sided chest pain for about 1 week. Patient reports this is located underneath the left breast and radiates down the left arm. Patient reports she has taken multiple sublingual nitro's at home which do help briefly for about 10 to 15 minutes but that the pain returns. Patient reports some shortness of breath without cough. Patient reports that she has not had any increase in swelling in her legs. Patient has not taken any aspirin as she is allergic to this. TRAVEL OUTSIDE OF THE [place] IN LAST 30 DAYS: No - Related Data Allergies/Adverse Reactions: acetaminophen [From Tylenol] Allergy (Verified 05/01/19 23:24) aspirin Allergy (Verified 05/01/19 23:24) NSAIDS (Non-Steroidal Anti-Inflamma Allergy (Verified 05/01/19 23:24) Past Medical History - Past Medical History Cardiac Medical History: Reports: Hx Coronary Artery Disease Denies: Hx Atrial Fibrillation, Hx Congestive Heart Failure, Hx Heart Attack, Hx Hypercholesterolemia, Hx Hypertension Pulmonary Medical History: Denies: Hx Asthma, Hx COPD Neurological Medical History: Denies: Hx Seizures Endocrine Medical History: Denies: Hx Diabetes Mellitus Type 1, Hx Diabetes Mellitus Type 2, Hx Hyperthyroidism, Hx Hypothyroidism Renal/ Medical History: Reports: Hx Kidney Stones GI Medical History: Reports: Hx Gastroesophageal Reflux Disease. Denies: Hx Cirrhosis, Hx Crohn's Disease, Hx Hepatitis, Hx Ulcerative Colitis Musculoskeltal Medical History: Denies Hx Arthritis, Denies Hx Gout Skin Medical History: Denies Hx Eczema, Denies Hx Psoriasis Psychiatric Medical History: Reports: Hx Depression Infectious Medical History: Denies: Hx Hepatitis Past Surgical History: Reports: Hx Cardiac Catheterization - x2, Hx Section, Hx Cholecystectomy, Hx Coronary Stent - X 2, Hx Genitourinary Surgery - Gastric bypass, Hx Tonsillectomy - Immunizations Hx Diphtheria, Pertussis, Tetanus Vaccination: Yes Physical Exam - Vital signs Vitals: Temp Pulse BP Pulse Ox 97.7 F 108 H 117/77 100 06/28/19 10:47 06/28/19 10:47 06/28/19 10:47 06/28/19 10:47 - Cardiovascular Rhythm: Regular Heart sounds: Normal auscultation, S1 appreciated, S2 appreciated Course - Re-evaluation Re-evalutation: 06/28/19 10:53 We will initiate cardiac work-up, hold off on aspirin as the patient reports she is allergic to this. I have greeted and performed a rapid initial assessment of this patient. A comprehensive ED assessment and evaluation of the patient, analysis of test results and completion of the medical decision making process will be conducted by additional ED providers. - Vital Signs Vital signs: Temp Pulse Resp BP Pulse Ox 97.7 F 108 H 20 117/77 100 06/28/19 10:47 06/28/19 10:47 06/28/19 10:50 06/28/19 10:47 06/28/19 10:47
[2019-06-28] MEDS ORDERED: NITROGLYCERIN 2% OINTMENT 1 GM PACKET TP ONE (11:11)
--- NOTE | 2019-06-28 11:18 | ER Document Report ---
ED Cardiac - General Chief Complaint: Chest Pain Stated Complaint: CHEST PAIN Time Seen by Provider: 06/28/19 10:48 Mode of Arrival: Wheelchair Information source: Patient TRAVEL OUTSIDE OF THE [place] IN LAST 30 DAYS: No - HPI Patient complains to provider of: Chest pain - Pt with h/o CHF and stents x 2 ([facility]) 4 years ago with L-sided CP intermittently for the past week. She was here earlier this week but left prior to being seen since the wait was too long. States she took NTG times 2 earlier today with minimal relief. She is unable to take ASA as she is allergic. Denies SOB, pleuritic component - Related Data Allergies/Adverse Reactions: acetaminophen [From Tylenol] Allergy (Verified 05/01/19 23:24) aspirin Allergy (Verified 05/01/19 23:24) fentanyl Allergy (Verified 06/28/19 10:53) NSAIDS (Non-Steroidal Anti-Inflamma Allergy (Verified 05/01/19 23:24) Past Medical History - General Information source: Patient - Social History Smoking Status: Former Smoker Family History: CAD. denies: DM, Hyperlipidemia, Hypertension, Malignancy Patient has suicidal ideation: No Patient has homicidal ideation: No - Past Medical History Cardiac Medical History: Reports: Hx Coronary Artery Disease Denies: Hx Atrial Fibrillation, Hx Congestive Heart Failure, Hx Heart Attack, Hx Hypercholesterolemia, Hx Hypertension Pulmonary Medical History: Denies: Hx Asthma, Hx COPD Neurological Medical History: Denies: Hx Seizures Endocrine Medical History: Denies: Hx Diabetes Mellitus Type 1, Hx Diabetes Me llitus Type 2, Hx Hyperthyroidism, Hx Hypothyroidism Renal/ Medical History: Reports: Hx Kidney Stones GI Medical History: Reports: Hx Gastroesophageal Reflux Disease. Denies: Hx Cirrhosis, Hx Crohn's Disease, Hx Hepatitis, Hx Ulcerative Colitis Musculoskeletal Medical History: Denies Hx Arthritis, Denies Hx Gout Skin Medical History: Denies Hx Eczema, Denies Hx Psoriasis Psychiatric Medical History: Reports: Hx Depression Infectious Medical History: Denies: Hx Hepatitis Past Surgical History: Reports: Hx Cardiac Catheterization - x2, Hx Section, Hx Cholecystectomy, Hx Coronary Stent - X 2, Hx Genitourinary Surgery - Gastric bypass, Hx Tonsillectomy - Immunizations Hx Diphtheria, Pertussis, Tetanus Vaccination: Yes Review of Systems - Review of Systems Constitutional: No symptoms reported EENT: No symptoms reported Cardiovascular: See HPI, Chest pain Respiratory: No symptoms reported Gastrointestinal: No symptoms reported Musculoskeletal: No symptoms reported -: Yes All other systems reviewed and negative Physical Exam - Vital signs Vitals: Temp Pulse BP Pulse Ox 97.7 F 108 H 117/77 100 06/28/19 10:47 06/28/19 10:47 06/28/19 10:47 06/28/19 10:47 - General General appearance: Appears well In distress: None - HEENT Head: Normocephalic Pupils: PERRL Mucous membranes: Normal Pharynx: Normal Neck: Normal - Respiratory Respiratory status: No respiratory distress Chest status: Nontender Breath sounds: Normal - Cardiovascular Rhythm: Regular, Tachycardia Heart sounds: Normal auscultation Murmur: No - Abdominal Inspection: Normal Tenderness: Nontender Organomegaly: No organomegaly - Neurological Neuro grossly intact: Yes Cognition: Normal Orientation: AAOx4 Course - Re-evaluation Re-evalutation: 06/28/19 14:29 Pt. feels somewhat better after NTG and MSo4 -- will call hospitalist for admssion - Vital Signs Vital signs: Temp Pulse Resp BP Pulse Ox 97.7 F 108 H 16 100/61 97 06/28/19 10:47 06/28/19 10:47 06/28/19 13:07 06/28/19 13:07 06/28/19 13:07 - Laboratory Result Diagrams: 06/28/19 12:32 06/28/19 11:40 Laboratory results interpreted by me: 06/28/19 06/28/19 11:40 12:32 RBC 3.66 L Hgb 11.2 L Hct 33.8 L RDW 15.4 H Seg Neutrophils % 78.8 H Glucose 73 L Calcium 8.0 L Total Protein 5.9 L Albumin 3.0 L - Diagnostic Test Radiology reviewed: Reports reviewed - cxr- no acute change - EKG Interpretation by Me EKG shows normal: Sinus rhythm Rate: Tachycardia Rhythm: NSR - nsr with low voltage and no acute change - Consults edison Fleming Time consulted: 14:45 Consulted provider: will come to ER Discharge - Discharge Clinical Impression: Chest pain Qualifiers: Chest pain type: other chest pain Qualified Code(s): R07.89 - Other chest pain; R07.8 - Other chest pain Condition: Stable Disposition: ADMITTED OBSERVATION Admitting Provider: Anais (Hospitalist) Unit Admitted: Telemetry
[2019-06-28 12:15] LABS: ALKALINE PHOSPHATASE 100 U/L (38-126); ANION GAP 5 (5-19); ASPARTATE AMINO TRANSFERASE 25 U/L (14-36); BILIRUBIN,DIRECT 0.3 mg/dL (0.0-0.4); BILIRUBIN,TOTAL 0.3 mg/dL (0.2-1.3); BLOOD UREA NITROGEN 10 mg/dL (7-20); CARBON DIOXIDE 29 mmol/L (22-30); CHLORIDE 104 mmol/L (98-107); GLUCOSE 73 mg/dL (75-110); TOTAL PROTEIN 5.9 g/dL (6.3-8.2)
[2019-06-28 12:45] LABS: ABSOLUTE EOSINOPHILS # (AUTO) 0.1 10^3/uL (0.0-0.6); ABSOLUTE LYMPHOCYTES (AUTO) 1.1 10^3/uL (0.5-4.7); ABSOLUTE MONOCYTES (AUTO) 0.3 10^3/uL (0.1-1.4); ABSOLUTE NEUT (AUTO) 5.8 10^3/uL (1.7-8.2); BASOPHILS % (AUTO) 0.5 % (0-2); EOSINOPHILS % (AUTO) 1.2 % (0-6); HEMATOCRIT 33.8 % (36.0-47.0); HEMOGLOBIN 11.2 g/dL (12.0-15.5); LYMPHOCYTES % (AUTO) 14.9 % (13-45); MEAN CORPUSCULAR HEMOGLOBIN 30.4 pg (27.0-33.4); MEAN CORPUSCULAR VOLUME 92 fl (80-97); MONOCYTES % (AUTO) 4.6 % (3-13); PLATELET COUNT 170 10^3/uL (150-450); RED BLOOD COUNT 3.66 10^6/uL (3.72-5.28); RED CELL DISTRIBUTION WIDTH 15.4 % (11.5-14.0); SEGMENTED NEUTROPHILS % (AUTO) 78.8 % (42-78); TOTAL CELLS COUNTED % (AUTO) 100 %; WHITE BLOOD COUNT 7.4 10^3/uL (4.0-10.5)
--- NOTE | 2019-06-28 12:50 | RADIOLOGY REPORT (SQ) ---
EXAM DESCRIPTION: CHEST 2 VIEWS COMPLETED DATE/TIME: 06/28/2019 12:40 pm REASON FOR STUDY: Chest pain COMPARISON: 05/01/2019. EXAM PARAMETERS: NUMBER OF VIEWS: two views TECHNIQUE: Digital Frontal and Lateral radiographic views of the chest acquired. RADIATION DOSE: NA LIMITATIONS: none FINDINGS: LUNGS AND PLEURA: Linear atelectasis in the left lung. No masses or pneumothorax. No pleu ral effusion. MEDIASTINUM AND HILAR STRUCTURES: No masses or contour abnormalities. HEART AND VASCULAR STRUCTURES: Heart normal size. No evidence for failure. BONES: No acute findings. HARDWARE: None in the chest. OTHER: No other significant finding. IMPRESSION: LINEAR ATELECTASIS IN THE LEFT LUNG. NO ACUTE RADIOGRAPHIC FINDING IN THE CHEST. TECHNICAL DOCUMENTATION: JOB ID: [id number] 2010 [employer]- All Rights Reserved Reading location - IP/workstation name: [email or web address]
[2019-06-28] MEDS ORDERED: MORPHINE SULFATE 10 MG/ML INJ IV ONE ×2 (13:30→21:00)
[2019-06-28] MEDS ORDERED: IPRATROPIUM/ALBUTEROL 0.5-2.5 MG/3 ML AMPUL NEB PRN (15:13)
[2019-06-28] MEDS ORDERED: HYDRALAZINE HCL INJ/PF 20 MG/1 ML SDV IV PRN (15:20)
[2019-06-28] MEDS ORDERED: METOPROLOL TARTRATE PF/INJ 5 MG/5 ML SDV IV PRN (15:21)
[2019-06-28] MEDS ORDERED: NITROGLYCERIN 0.4 MG/TAB 25 TAB/BOTTLE SL PRN (15:24)
--- NOTE | 2019-06-28 15:55 | PDOC H&P ---
History of Present Illness History of Present Illness: DWIGHT MURPHY is a 54 year old female who is visiting from [place] with past medical history of CAD status post 2 stent placement x4 years, GERD, hx of gastric bypass Mirna-en-Y procedure, depression, obesity, presenting to ED complaining of intermittent chest pain. Chest pain is left-sided, intermittent, has been going on for several months, sharp/pressure-like radiating to back,"feels like blood clot" lasts from several seconds to minutes, no alleviating or aggravating factor has been identified, nonpleuritic, mild relief with nitro and morphine, allergic to NSAIDs Tylenol and aspirin. Denies any headache, vision changes, shortness of breath, nausea, abdominal pain, diarrhea, constipation, orthopnea, paroxysmal nocturnal dyspnea, weight changes, lower extremity edema. In the ED was found to have sinus tachycardia with negative troponin, EKG and chest x-ray. Hospitalist was consulted for admission. Past Medical History Cardiac Medical History: Reports: Coronary Artery Disease Denies: Atrial Fibrillation, Congestive Heart Failure, Myocardial Infarction, Hyperlipidema, Hypertension Pulmonary Medical History: Denies: Asthma, Chronic Obstructive Pulmonary Disease (COPD) Neurological Medical History: Denies: Seizures Endocrine Medical History: Denies: Diabetes Mellitus Type 1, Diabetes Mellitus Type 2, Hyperthyroidism, Hypothyroidism GI Medical History: Reports: Gastroesophageal Reflux Disease Denies: Cirrhosis, Crohn's Disease, Hepatitis, Ulcerative Colitis Musculoskeltal Medical History: Denies: Arthritis, Gout Skin Medical History: Denies: Eczema, Psoriasis Psychiatric Medical History: Reports: Depression Hematology: Denies: Anemia, Bleeding Tendencies Past Surgical History Past Surgical History: Reports: Cardiac Catheterization - x2, Section, Cholecystectomy, Coronary Stent - X 2, Tonsillectomy Social History Smoking Status: Former Smoker Frequency of Alcohol Use: None Hx Recreational Drug Use: No Drugs: None Hx Prescription Drug Abuse: No Family History Family History: CAD. denies: DM, Hyperlipidemia, Hypertension, Malignancy Parental Family History Reviewed: Yes Children Family History Reviewed: Yes Sibling(s) Family History Reviewed.: Yes Medication/Allergy Home Medications: Amitriptyline HCl [Elavil 50 Mg Tablet] 100 mg PO QHS 06/28/19 Apixaban [Eliquis 5 mg Tablet] 5 mg PO BID MDD SEE LABEL COMMENTS 06/28/19 Melatonin [Melatonin 5 mg Tablet] 10 mg PO QHS 06/28/19 Omeprazole 40 mg PO DAILY 06/28/19 Triamcinolone Acetonide [Aristocort 0.1% Cream] 1 applic TOP BID 06/28/19 Allergies/Adverse Reactions: acetaminophen [From Tylenol] Allergy (Verified 05/01/19 23:24) aspirin Allergy (Verified 05/01/19 23:24) fentanyl Allergy (Verified 06/28/19 10:53) NSAIDS (Non-Steroidal Anti-Inflamma Allergy (Verified 05/01/19 23:24) Review of Systems Review of Systems: as per hpi Physical Exam Vital Signs: Temp Pulse Resp BP Pulse Ox 98 F 108 H 13 108/64 97 06/28/19 14:00 06/28/19 10:47 06/28/19 14:00 06/28/19 14:00 06/28/19 14:00 Intake & Output 06/27/19 06/28/19 06/29/19 06:59 06:59 06:59 Weight 100.1 kg General appearance: PRESENT: obese Head exam: PRESENT: atraumatic, normocephalic Respiratory exam: PRESENT: clear to auscultation scotty. ABSENT: rales, rhonchi, wheezes Cardiovascular exam: PRESENT: RRR. ABSENT: diastolic murmur, rubs, systolic murmur GI/Abdominal exam: PRESENT: normal bowel sounds, soft. ABSENT: distended, guarding, mass, organolmegaly, rebound, tenderness Neurological exam: PRESENT: alert, awake, oriented to person, oriented to place, oriented to time, oriented to situation, CN II-XII grossly intact. ABSENT: motor sensory deficit Psychiatric exam: PRESENT: depressed Results Laboratory Results: 06/28/19 12:32 06/28/19 11:40 06/28/19 06/28/19 06/28/19 11:10 11:40 12:32 WBC 7.4 RBC 3.66 L Hgb 11.2 L Hct 33.8 L MCV 92 MCH 30.4 MCHC 33.0 RDW 15.4 H Plt Count 170 Seg Neutrophils % 78.8 H Sodium Cancelled 138.3 Potassium Cancelled 4.0 Chloride Cancelled 104 Carbon Dioxide Cancelled 29 Anion Gap Cancelled 5 BUN Cancelled 10 Creatinine Cancelled 0.73 Est GFR ( Amer) Cancelled > 60 Est GFR (Non-Af Amer) Cancelled Glucose Cancelled 73 L Calcium Cancelled 8.0 L Total Bilirubin Cancelled 0.3 AST Cancelled 25 Alkaline Phosphatase Cancelled 100 Total Protein Cancelled 5.9 L Albumin Cancelled 3.0 L 06/28/19 06/28/19 11:10 12:32 Troponin I Cancelled < 0.012 Impressions: Chest X-Ray 06/28/19 10:51 IMPRESSION: LINEAR ATELECTASIS IN THE LEFT LUNG. NO ACUTE RADIOGRAPHIC FINDING IN THE CHEST. Assessment and Plan - Diagnosis (1) Chest pain Qualifiers: Chest pain type: other chest pain Qualified Code(s): R07.89 - Other chest pain; R07.8 - Other chest pain Is this a current diagnosis for this admission?: Yes Plan: Atypical chest pain with negative EKG, troponin chest x-ray. This is most likely related to underlying gastroesophageal reflux disease. Patient presented with similar complaints along with dysphagia in December 2018 was supposed to get stress test however it had to be canceled several times because patient was c/o persistent chest pain throughout the hospitalization, eventually Dr. Valiente dairy clerk was consulted and as per his evaluation chest pain was determined to be noncardiac and most likely related underlying GERD, and she was discharged to follow up with history nephrology and her dairy clerk. For her dysphagia she underwent barium swallow study which showed post gastric bypass with Mirna loop, distorted irregular channel possibly chronic peptic disease and ulceration. Given history of CAD and atypical chest pain will admit to telemetry, trend troponins, beta-blockers, statins, nitroglycerin and morphine. We will consult Dr. Valiente dairy clerk to help in determining if patient needs further work-up for atypical chest pain. (2) Gastroesophageal reflux disease with esophagitis Is this a current diagnosis for this admission?: Yes Plan: History of gastric bypass. Taking Carafate and PPIs at home. Restart home meds. Outpatient PCP and gastroenterology follow-up. (3) CAD (coronary artery disease), [place] coronary artery Qualifiers: Is this a current diagnosis for this admission?: Yes Plan: Restart home meds. Plan as per 1. (4) Depression Is this a current diagnosis for this admission?: Yes Plan: History of severe depression. Denies any homicidal or suicidal ideation. Restart home meds. Outpatient PCP and psychiatry follow-up. (5) Obesity (BMI 30-39.9) Is this a current diagnosis for this admission?: Yes Plan: Status post gastric bypass. Diet and lifestyle modification recommended.
--- NOTE | 2019-06-28 16:17 | EKG REPORT ---
SEVERITY:- BORDERLINE ECG - SINUS TACHYCARDIA BORDERLINE T ABNORMALITIES, DIFFUSE LEADS : Confirmed by: Solange Hernandez MD 28-Jun-2019 16:17:15
[2019-06-28] MEDS: APIXABAN 5 MG TABLET PO SCH ×2 (18:19→18:28)
[2019-06-28] MEDS: PANTOPRAZOLE SODIUM 40 MG TABLET.DR PO SCH (18:19)
[2019-06-28] MEDS: MORPHINE SULFATE 10 MG/ML INJ IV PRN (18:19)
--- NOTE | 2019-06-28 20:34 | RADIOLOGY REPORT (SQ) ---
EXAM DESCRIPTION: XR CHEST 1 VIEW COMPLETED DATE/TME: 06/28/2019 00:00 CLINICAL HISTORY: 54 years, Female, central line placement COMPARISON: February 10, 2019 NUMBER OF VIEWS: Single TECHNIQUE: LIMITATIONS: Artifact from patient body habitus FINDINGS: Cardiomediastinal silhouette is prominent. Lungs of low volume. Atelectasis left lung base, mildly progressive when compared to prior. No effusion. No pneumothorax. Right IJ central venous catheter tip projects over right atrium, satisfactory. IMPRESSION: Satisfactory catheter placement. copyright 2010 [employer]- All Rights Reserved
[2019-06-28] MEDS: ATORVASTATIN CALCIUM 40 MG TABLET PO SCH (21:04)
[2019-06-28] MEDS: AMITRIPTYLINE HCL 50 MG TABLET PO SCH (21:04)
[2019-06-28] MEDS: MELATONIN 5 MG TABLET PO SCH (21:04)
[2019-06-28] MEDS: SUCRALFATE 1 GM TABLET PO SCH (21:09)
[2019-06-28] MEDS: NORMAL SALINE INJ/PF 0.9% 10 ML SDV IV PRN (21:09)
[2019-06-28] MEDS ORDERED: HEPARIN SOD (PORCINE) 5,000 UNIT/ML 1 ML VIAL SUBCUT SCH (22:00)
--- NOTE | 2019-06-28 22:03 | Operative Report ---
Operative Report DATE OF SURGERY: 06/28/19 PREOPERATIVE DIAGNOSIS: Poor peripheral veins for IV access OPERATION: Placement of triple-lumen catheter via the right internal jugular vein under ultrasound guidance SURGEON: GERTRUDIS DENNEY ANESTHESIA: Local TISSUE REMOVED OR ALTERED: None COMPLICATIONS: None ESTIMATED BLOOD LOSS: 5 cc QUANTITATIVE BLOOD LOSS: 5 INTRAOPERATIVE FINDINGS: Normal caliber right internal jugular vein noted on ultrasound PROCEDURE: There are informed consent obtained patient was placed in slight Trendelenburg position and the right neck prepped and draped in the usual sterile fashion. We used the use of the ultrasound the right internal jugular vein was then i dentified and the skin was then anesthetized with lidocaine. The vein was then punctured and blood return was dark and nonpulsatile. A guidewire was then passed through the needle towards the superior vena cava and the needle removed. The puncture site was then dilated. A triple-lumen catheter was then inserted through the guidewire to a distance of about 15 cm. The 3 ports aspirated blood easily and instilled saline easily. The catheter was then anchored to the skin with 3-0 nylon. Biopatch placed at the insertion site and transparent sterile dressing placed over the Biopatch and catheter. Chest x-ray was immediately obtained and noted the catheter in good position with the tip right at the area of the atrium and no pneumothorax. Patient tolerated procedure well.
[2019-06-29 05:07] LABS: HEMOGLOBIN 11.1 g/dL (12.0-15.5); MEAN CORPUSCULAR HEMOGLOBIN 30.4 pg (27.0-33.4); MEAN CORPUSCULAR HGB CONC 33.5 g/dL (32.0-36.0); MEAN CORPUSCULAR VOLUME 91 fl (80-97); PLATELET COUNT 187 10^3/uL (150-450); RED BLOOD COUNT 3.63 10^6/uL (3.72-5.28); RED CELL DISTRIBUTION WIDTH 15.7 % (11.5-14.0); WHITE BLOOD COUNT 6.2 10^3/uL (4.0-10.5)
[2019-06-29] MEDS: SUCRALFATE 1 GM TABLET PO SCH ×3 (05:13→21:01)
[2019-06-29] MEDS: PANTOPRAZOLE SODIUM 40 MG TABLET.DR PO SCH ×2 (05:17→16:20)
[2019-06-29 05:18] LABS: INTERNATIONAL RATION (INR) 0.99; PROTHROMBIN TIME 13.1 SEC (11.4-15.4)
[2019-06-29] MEDS: NORMAL SALINE INJ/PF 0.9% 10 ML SDV IV PRN (05:19)
[2019-06-29 05:32] LABS: ALBUMIN 2.9 g/dL (3.5-5.0); ALKALINE PHOSPHATASE 101 U/L (38-126); ASPARTATE AMINO TRANSFERASE 23 U/L (14-36); BILIRUBIN,TOTAL 0.2 mg/dL (0.2-1.3); BLOOD UREA NITROGEN 7 mg/dL (7-20); CALCIUM 8.1 mg/dL (8.4-10.2); GLUCOSE 82 mg/dL (75-110); POTASSIUM 3.9 mmol/L (3.6-5.0); TOTAL PROTEIN 5.5 g/dL (6.3-8.2)
[2019-06-29 05:37] LABS: CARBON DIOXIDE 33 mmol/L (22-30); CHLORIDE 102 mmol/L (98-107)
[2019-06-29 05:38] LABS: ANION GAP 3 (5-19)
[2019-06-29] MEDS: MORPHINE SULFATE 10 MG/ML INJ IV PRN ×4 (07:46→20:59)
[2019-06-29] MEDS: APIXABAN 5 MG TABLET PO SCH ×2 (09:12→17:16)
--- NOTE | 2019-06-29 11:08 | PDOC PROGRESS REPORT ---
Subjective Progress Note for:: 06/29/19 Subjective:: DWIGHT MURPHY is a 54 year old female who is visiting from [place] with past medical history of CAD status post 2 stent placement x4 years, GERD, hx of favio celestina bypass Mirna-en-Y procedure, depression, obesity, presenting to ED complaining of intermittent chest pain. Chest pain is left-sided, intermittent, has been going on for several months, sharp/pressure-like radiating to back,"feels like blood clot" lasts from several seconds to minutes, no alleviating or aggravating factor has been identified, nonpleuritic, mild relief with nitro and morphine, allergic to NSAIDs Tylenol and aspirin. Denies any headache, vision changes, shortness of breath, nausea, abdominal pain, diarrhea, constipation, orthopnea, paroxysmal nocturnal dyspnea, weight changes, lower extremity edema. In the ED was found to have sinus tachycardia with negative troponin, EKG and chest x-ray. Hospitalist was consulted for admission. 06/29/2019. No acute events overnight. Patient still complaining of persistent left-sided chest pain, nonpleuritic, sharp/pressure-like, better with morphine and nitroglycerin, denies any shortness of breath, fever, chills, nausea, vomiting, diarrhea, constipation or any urinary symptoms. Reason For Visit: CHEST PAIN Physical Exam Vital Signs: Temp Pulse Resp BP Pulse Ox 98.4 F 94 12 108/60 98 06/29/19 08:01 06/29/19 08:01 06/29/19 08:01 06/29/19 08:01 06/29/19 08:01 Intake & Output 06/28/19 06/29/19 06/30/19 06:59 06:59 06:59 Intake Total 360 Balance 360 Weight 100.8 kg General appearance: PRESENT: no acute distress, obese, well-developed, well-nourished Head exam: PRESENT: atraumatic, normocephalic Respiratory exam: PRESENT: clear to auscultation scotty. ABSENT: rales, rhonchi, wheezes Cardiovascular exam: PRESENT: RRR. ABSENT: diastolic murmur, rubs, systolic murmur GI/Abdominal exam: PRESENT: normal bowel sounds, soft. ABSENT: distended, guar ding, mass, organolmegaly, rebound, tenderness Extremities exam: PRESENT: full ROM. ABSENT: calf tenderness, clubbing, pedal edema Neurological exam: PRESENT: alert, awake, oriented to person, oriented to place, oriented to time, oriented to situation, CN II-XII grossly intact. ABSENT: motor sensory deficit Results Laboratory Results: 06/29/19 04:50 06/29/19 04:50 06/28/19 06/28/19 06/28/19 11:10 11:40 12:32 WBC 7.4 RBC 3.66 L Hgb 11.2 L Hct 33.8 L MCV 92 MCH 30.4 MCHC 33.0 RDW 15.4 H Plt Count 170 Seg Neutrophils % 78.8 H Sodium Cancelled 138.3 Potassium Cancelled 4.0 Chloride Cancelled 104 Carbon Dioxide Cancelled 29 Anion Gap Cancelled 5 BUN Cancelled 10 Creatinine Cancelled 0.73 Est GFR ( Amer) Cancelled > 60 Est GFR (Non-Af Amer) Cancelled Glucose Cancelled 73 L Calcium Cancelled 8.0 L Total Bilirubin Cancelled 0.3 AST Cancelled 25 Alkaline Phosphatase Cancelled 100 Total Protein Cancelled 5.9 L Albumin Cancelled 3.0 L 06/29/19 06/29/19 04:50 04:50 WBC 6.2 RBC 3.63 L Hgb 11.1 L Hct 33.0 L MCV 91 MCH 30.4 MCHC 33.5 RDW 15.7 H Plt Count 187 Seg Neutrophils % Sodium 138.4 Potassium 3.9 Chloride 102 Carbon Dioxide 33 H Anion Gap 3 L BUN 7 Creatinine 0.69 Est GFR ( Amer) > 60 Est GFR (Non-Af Amer) Glucose 82 Calcium 8.1 L Total Bilirubin 0.2 AST 23 Alkaline Phosphatase 101 Total Protein 5.5 L Albumin 2.9 L 06/28/19 06/28/19 06/28/19 11:10 12:32 17:10 Troponin I Cancelled < 0.012 < 0.012 06/28/19 06/29/19 22:55 04:50 Troponin I < 0.012 < 0.012 Impressions: Chest X-Ray 06/28/19 10:51 IMPRESSION: LINEAR ATELECTASIS IN THE LEFT LUNG. NO ACUTE RADIOGRAPHIC FINDING IN THE CHEST. Assessment and Plan - Diagnosis (1) Chest pain Qualifiers: Chest pain type: other chest pain Qualified Code(s): R07.89 - Other chest pain; R07.8 - Other chest pain Is this a current diagnosis for this admission?: Yes Plan: Atypical chest pain with negative EKG, troponin chest x-ray. This is most likely related to underlying gastroesophageal reflux disease. EKG no acute changes. Troponins negative x3. Patient presented with similar complaints along with dysphagia in December 2018 was supposed to get stress test however it had to be canceled several times because patient was c/o persistent chest pain throughout the hospitalization, eventually Dr. Valiente director of digital technology was consulted and as per his evaluation chest pain was determined to be noncardiac and most likely related underlying GERD, and she was discharged to follow up with history nephrology and her director of digital technology. For her dysphagia she underwent barium swallow study which showed post gastric bypass with Mirna loop, distorted irregular channel possibly chronic peptic disease and ulceration. Given history of CAD and atypical chest pain will admit to telemetry, beta- blockers, statins, nitroglycerin and morphine. We will consult Dr. Valiente director of digital technology to help in determining if patient needs further work-up for atypical chest pain. (2) Gastroesophageal reflux disease with esophagitis Is this a current diagnosis for this admission?: Yes Plan: History of gastric bypass. Taking Carafate and PPIs at home. Restart home meds. Outpatient PCP and gastroenterology follow-up. (3) CAD (coronary artery disease), [place] coronary artery Qualifiers: Is this a current diagnosis for this admission?: Yes Plan: Restart home meds. Plan as per 1. (4) Depression Is this a current diagnosis for this admission?: Yes Plan: History of severe depression. Denies any homicidal or suicidal ideation. Restart home meds. Outpatient PCP and psychiatry follow-up. (5) Obesity (BMI 30-39.9) Is this a current diagnosis for this admission?: Yes Plan: Status post gastric bypass. Diet and lifestyle modification recommended. (6) History of pulmonary embolus (PE) Is this a current diagnosis for this admission?: Yes Plan: Patient gives history of recently diagnosed PE. SPO2 WNL. D-dimer negative. Continue Eliquis. Outpatient PCP follow-up.
[2019-06-29] MEDS: ONDANSETRON HCL INJ/PF 4 MG/2 ML SDV IV PRN ×2 (12:09→19:38)
--- NOTE | 2019-06-29 20:32 | PDOC CONSULTATION ---
Consultation-Blank Consultation: CARDIOLOGY CONSULTATION by Dr. Solange Hernandez on 06/29/2019. REASON FOR CONSULTATION: Patient with history of coronary artery disease and history of stent and known coronary artery admitted with intermittent chest pains. CONSULT REQUESTING PHYSICIAN: Dr. Hutchinson, [facility]. HISTORY OF PRESENT ILLNESS: Patient is morbidly obese female with history of coronary artery disease, history of stent to unknown vessel in the past, history of gastric bypass surgery done in the past, and history of significant depression admitted with intermittent chest pain which she states is sharp in nature. The pain lasts for few seconds and recurs. It is not related to exertion. She states it does sometimes increase with movements of her chest wall/torso. It is not brought on by exertion. There is no tender sites on palpation. The patient had similar admission in 2018. She has not followed up with her quality control tech raw materials. That was the recommendation at that time. The patient's EKG so far shows no major acute changes. And her serial troponin enzymes are negative x4. The patient's chest pains are clearly noncardiac. Past Medical History Cardiac Medical History: Reports: Coronary Artery Disease Denies: Atrial Fibrillation, Congestive Heart Failure, Myocardial Infarction, Hyperlipidema, Hypertension Pulmonary Medical History: Denies: Asthma, Chronic Obstructive Pulmonary Disease (COPD) EENT Medical History: Denies: Cataracts, Ears - Hearing aids Neurological Medical History: Denies: Hemorrhagic CVA, Ischemic CVA, Seizures Endocrine Medical History: Reports: Obesity Denies: Diabetes Mellitus Type 1, Diabetes Mellitus Type 2, Hyperthyroidism, Hypothyroidism Renal/ Medical History: Denies: Chronic Kidney Disease, Nephrolithiasis Malignancy Medical History: Reports: None GI Medical History: Reports: Gastroesophageal Reflux Disease Denies: Cirrhosis, Crohn's Disease, Hepatitis, Ulcerative Colitis Musculoskeltal Medical History: Denies: Arthritis, Gout Skin Medical History: Denies: Eczema, Psoriasis Psychiatric Medical History: Reports: Depression Denies: Alcohol Dependency, Substance Abuse, Tobacco Dependency Traumatic Medical History: Reports: None Hematology: Denies: Anemia, Bleeding Tendencies Infectious Medical History: Reports: None Past Surgical History Past Surgical History: Reports: Cardiac Catheterization, Section, Cholecystectomy, Coronary Stent - X 2, Tonsillectomy Social History Information Source: Patient Lives with: Significant other Smoking Status: Never Smoker Frequency of Alcohol Use: None Hx Recreational Drug Use: No Drugs: None Hx Prescription Drug Abuse: No - Advance Directive Resuscitation Status: Full Code Surrogate healthcare decision maker:: Mina Martinez, patient's boyfriend. Family History: CAD. denies: DM, Hyperlipidemia, Hypertension, Malignancy Medication/Allergy Allergies/Adverse Reactions: NSAIDS . Review of Systems Constitutional: ABSENT: chills, fever(s) Eyes: ABSENT: visual disturbances, other - Eye pain Ears: ABSENT: hearing changes, other - Ear pain Nose, Mouth, and Throat: ABSENT: mouth pain, sore throat Cardiovascular: PRESENT: as per HPI, chest pain, dyspnea on exertion. ABSENT: edema, orthropnea, palpitations Respiratory: PRESENT: dyspnea. ABSENT: cough Gastrointestinal: PRESENT: as per HPI, nausea. ABSENT: abdominal pain, constipation, diarrhea, vomiting Genitourinary: ABSENT: dysuria, hematuria Musculoskeletal: ABSENT: back pain, joint swelling, muscle weakness Integumentary: ABSENT: pruritus, rash Neurological: ABSENT: confusion, convulsions, focal weakness, memory loss, syncope Psychiatric: ABSENT: anxiety, depression Endocrine: ABSENT: cold intolerance, heat intolerance Hematologic/Lymphatic: ABSENT: easy bleeding, easy bruising Allergic/Immunologic: ABSENT: seasonal rhinorrhea Physical EXAMINATION: The patient appears to be morbidly obese. At present in no acute distress. At present she denies any chest pain. Selected Entries 06/29/19 15:25 Temperature 99.0 F Temperature Oral Source Pulse Rate 93 Respiratory 16 Rate Blood Pressure 123/68 Blood Pressure 86 Mean BP Location Left Arm BP Position Supine O2 Sat by Pulse 100 Oximetry Oxygen Delivery Room Air Method HEAD: Is atraumatic normocephalic. EYES: Pupils equal round regular reactive to light accommodation. Extraocular movements are normal. There is no conjunctival pallor. There is no scleral icterus. EARS: Tympanic membranes are intact. External auditory canals are clear. NOSE: There is no inflammation of these mucous membrane. There is no deviated nasal septum. MOUTH: Mucous memories of mouth are moist. Tongue is moist there is no bleeding from the gums. THROAT: There is no redness of the oropharynx. There is no exudates. SKIN: There is no skin rashes. There is no petechia or ecchymosis. NECK: Is supple. There is no JVD. Carotids are equal there is no bruit there is no lymphadenopathy. There is no accessory muscles of respiration use. Trachea central. LUNGS: Is clear to auscultation percussion. There is no chest wall tenderness on palpation. HEART: S1-S2 is heard. There is no S3 gallop. There is no S4 gallop. Systolic murmur left sternal border and the apex there is no rub. ABDOMEN: Soft. There is no organomegaly. Bowel sounds well heard. EXTREMITIES: Femorals are deep. Femorals are diminished. Leg pulses are diminished. There is no pedal edema. There is no DVT or cellulitis. There is no cyanosis or clubbing. SUPERVISOR HARDBOARD pain: The patient is conscious slightly somnolent but with no focal deficits. Psychiatric the patient seems to have slow mentation. She appears to be significantly depressed. EKG:. SINUS TACHYCARDIA [T0DI] . BORDERLINE T ABNORMALITIES, DIFFUSE LEADS. These are very minor and non-diagnostic. Labs- Entire Visit 06/28/19 06/28/19 06/28/19 11:10 11:10 11:40 WBC RBC Hgb Hct MCV MCH MCHC RDW Plt Count Lymph % (Auto) Cooke % (Auto) Eos % (Auto) Baso % (Auto) Absolute Neuts (auto) Absolute Lymphs (auto) Absolute Monos (auto) Absolute Eos (auto) Absolute Basos (auto) Seg Neutrophils % PT INR D-Dimer Sodium Cancelled 138.3 Potassium Cancelled 4.0 Chloride Cancelled 104 Carbon Dioxide Cancelled 29 Anion Gap Cancelled 5 BUN Cancelled 10 Creatinine Cancelled 0.73 Est GFR ( Amer) Cancelled > 60 Est GFR (Non-Af Amer) Cancelled Est GFR (MDRD) Non-Af Cancelled > 60 Glucose Cancelled 73 L Calcium Cancelled 8.0 L Total Bilirubin Cancelled 0.3 Direct Bilirubin Cancelled 0.3 Neonat Total Bilirubin Cancelled Not Reportable Neonat Direct Bilirubin Cancelled Not Reportable Neonat Indirect Bili Cancelled Not Reportable AST Cancelled 25 ALT Cancelled 14 Alkaline Phosphatase Cancelled 100 Troponin I Cancelled Total Protein Cancelled 5.9 L Albumin Cancelled 3.0 L EGFR Cancelled 06/28/19 06/28/19 06/28/19 12:32 12:32 12:32 WBC 7.4 RBC 3.66 L Hgb 11.2 L Hct 33.8 L MCV 92 MCH 30.4 MCHC 33.0 RDW 15.4 H Plt Count 170 Lymph % (Auto) 14.9 Cooke % (Auto) 4.6 Eos % (Auto) 1.2 Baso % (Auto) 0.5 Absolute Neuts (auto) 5.8 Absolute Lymphs (auto) 1.1 Absolute Monos (auto) 0.3 Absolute Eos (auto) 0.1 Absolute Basos (auto) 0.0 Seg Neutrophils % 78.8 H PT INR D-Dimer 0.44 Sodium Potassium Chloride Carbon Dioxide Anion Gap BUN Creatinine Est GFR ( Amer) Est GFR (Non-Af Amer) Est GFR (MDRD) Non-Af Glucose Calcium Total Bilirubin Direct Bilirubin Neonat Total Bilirubin Neonat Direct Bilirubin Neonat Indirect Bili AST ALT Alkaline Phosphatase Troponin I < 0.012 Total Protein Albumin EGFR 06/28/19 06/28/19 06/29/19 17:10 22:55 04:50 WBC 6.2 RBC 3.63 L Hgb 11.1 L Hct 33.0 L MCV 91 MCH 30.4 MCHC 33.5 RDW 15.7 H Plt Count 187 Lymph % (Auto) Cooke % (Auto) Eos % (Auto) Baso % (Auto) Absolute Neuts (auto) Absolute Lymphs (auto) Absolute Monos (auto) Absolute Eos (auto) Absolute Basos (auto) Seg Neutrophils % PT INR D-Dimer Sodium Potassium Chloride Carbon Dioxide Anion Gap BUN Creatinine Est GFR ( Amer) Est GFR (Non-Af Amer) Est GFR (MDRD) Non-Af Glucose Calcium Total Bilirubin Direct Bilirubin Neonat Total Bilirubin Neonat Direct Bilirubin Neonat Indirect Bili AST ALT Alkaline Phosphatase Troponin I < 0.012 < 0.012 Total Protein Albumin EGFR 06/29/19 06/29/19 06/29/19 04:50 04:50 04:50 WBC RBC Hgb Hct MCV MCH MCHC RDW Plt Count Lymph % (Auto) [place]oke % (Auto) Eos % (Auto) Baso % (Auto) Absolute Neuts (auto) Absolute Lymphs (auto) Absolute Monos (auto) Absolute Eos (auto) Absolute Basos (auto) Seg Neutrophils % PT 13.1 INR 0.99 D-Dimer Sodium 138.4 Potassium 3.9 Chloride 102 Carbon Dioxide 33 H Anion Gap 3 L BUN 7 Creatinine 0.69 Est GFR ( Amer) > 60 Est GFR (Non-Af Amer) Est GFR (MDRD) Non-Af > 60 Glucose 82 Calcium 8.1 L Total Bilirubin 0.2 Direct Bilirubin 0.0 Neonat Total Bilirubin Not Reportable Neonat Direct Bilirubin Not Reportable Neonat Indirect Bili Not Reportable AST 23 ALT 13 Alkaline Phosphatase 101 Troponin I < 0.012 Total Protein 5.5 L Albumin 2.9 L EGFR 06/29/19 12:45 WBC RBC Hgb Hct MCV MCH MCHC RDW Plt Count Lymph % (Auto) [place]oke % (Auto) Eos % (Auto) Baso % (Auto) Absolute Neuts (auto) Absolute Lymphs (auto) Absolute Monos (auto) Absolute Eos (auto) Absolute Basos (auto) Seg Neutrophils % PT INR D-Dimer Sodium Potassium Chloride Carbon Dioxide Anion Gap BUN Creatinine Est GFR ( Amer) Est GFR (Non-Af Amer) Est GFR (MDRD) Non-Af Glucose Calcium Total Bilirubin Direct Bilirubin Neonat Total Bilirubin Neonat Direct Bilirubin Neonat Indirect Bili AST ALT Alkaline Phosphatase Troponin I < 0.012 Total Protein Albumin EGFR Chest X-Ray 06/28/19 00:00 IMPRESSION: Satisfactory catheter placement. copyright 2010 [employer]- All Rights Reserved Chest X-Ray 06/28/19 10:51 IMPRESSION: LINEAR ATELECTASIS IN THE LEFT LUNG. NO ACUTE RADIOGRAPHIC FINDING IN THE CHEST. IMPRESSION/RECOMMENDATION: 1. Patient with noncardiac intermittent chest pain, with no major EKG changes and multiple troponins are negative. Patient reassured. The patient lives in [place], hence would recommend that the patient be discharged and have a stress test and in [place] and follow-up with her primary care physician and quality control tech raw materials. 2. Coronary artery disease. History of of stent in unknown coronary artery. Patient needs further cardiac follow-up with her quality control tech raw materials in [place] since patient lives in [place]. The problem is the patient has low blood pressure, precluding placing the patient on good medical therapy. Would recommend that the patient have a stress test with nuclear imaging. This can be done as an outpatient. 3. Depression: This seems to be deep significant. Would recommend psychiatric consultation, which can be done as an outpatient. 4. Obesity. With the patient at length. I have explained to her the noncardiac nature of the patient's symptoms and so far there is no evidence of acute coronary syndrome. She can be discharged and have further work-up in [place] she still lives in [place]. Note that the patient is allergic to aspirin and nonsteroidal anti-inflammatory agents. The patient also may benefit from intensifying her antidepressants. Medications reviewed. Medical regimen and management plan discussed with attending provider on the case. Medical decision making is of high complexity. 60 minutes spent as patient more than 50% of time spent in direct patient care. Will sign off as the patient can be discharged safely.
[2019-06-29] MEDS: AMITRIPTYLINE HCL 50 MG TABLET PO SCH (21:00)
[2019-06-29] MEDS: MELATONIN 5 MG TABLET PO SCH (21:00)
[2019-06-29] MEDS: ATORVASTATIN CALCIUM 40 MG TABLET PO SCH (21:01)
[2019-06-30] MEDS: MORPHINE SULFATE 10 MG/ML INJ IV PRN ×3 (03:01→12:03)
[2019-06-30] MEDS: ONDANSETRON HCL INJ/PF 4 MG/2 ML SDV IV PRN (03:02)
[2019-06-30] MEDS: SUCRALFATE 1 GM TABLET PO SCH ×2 (05:27→13:38)
[2019-06-30] MEDS: PANTOPRAZOLE SODIUM 40 MG TABLET.DR PO SCH (05:29)
[2019-06-30] MEDS: NYSTATIN TOPICAL POWDER 15 GM TP PRN ×2 (05:35→12:30)
[2019-06-30] MEDS: APIXABAN 5 MG TABLET PO SCH (09:26)
[2019-06-30 13:48] VITALS: BP 122/79
--- NOTE | 2019-07-01 16:37 | PDOC DISCHARGE SUMMARY ---
Impression - Admit/DC Date/PCP Admission Date/Primary Care Provider: 06/28/19 15:38 Discharge Date: 06/30/19 - Discharge Diagnosis (1) Chest pain Is this a current diagnosis for this admission?: Yes (2) Gastroesophageal reflux disease with esophagitis Is this a current diagnosis for this admission?: Yes (3) CAD (coronary artery disease), [place] coronary artery Is this a current diagnosis for this admission?: Yes (4) Depression Is this a current diagnosis for this admission?: Yes (5) Obesity (BMI 30-39.9) Is this a current diagnosis for this admission?: Yes (6) History of pulmonary embolus (PE) Is this a current diagnosis for this admission?: Yes - Additional Information Discharge Diet: As Tolerated, Cardiac Discharge Activity: Activity As Tolerated Referrals: DAMIAN MADRID [Other] - 07/09/19 10:00 am Home Medications: Amitriptyline HCl [Elavil 50 mg Tablet] 100 mg PO QHS 06/28/19 Apixaban [Eliquis 5 mg Tablet] 5 mg PO BID MDD SEE LABEL COMMENTS 06/28/19 Melatonin [Melatonin 5 mg Tablet] 10 mg PO QHS 06/28/19 Omeprazole 40 mg PO DAILY 06/28/19 Triamcinolone Acetonide [Aristocort 0.1% Cream] 1 applic TOP BID 06/28/19 History of Present Illiness History of Present Illness: DWIGHT MURPHY is a 54 year old female who is visiting from [place] with past medical history of CAD status post 2 stent placement x4 years, GERD, hx of gastric bypass Mirna-en-Y procedure, depression, obesity, presenting to ED complaining of intermittent chest pain. Chest pain is left-sided, intermittent, has been going on for several months, sharp/pressure-like radiating to back,"feels like blood clot" lasts from several seconds to minutes, no alleviating or aggravating factor has been identified, nonpleuritic, mild relief with nitro and morphine, allergic to NSAIDs Tylenol and aspirin. Denies any headache, vision changes, shortness of breath, nausea, abdominal pain, diarrhea, constipation, orthopnea, paroxysmal nocturnal dyspnea, weight changes, lower extremity edema. In the ED was found to have sinus tachycardia with negative troponin, EKG and chest x-ray. Hospitalist was consulted for admission. Hospital Course Hospital Course: (1) Chest pain Atypical chest pain with negative EKG, troponin chest x-ray. Likely related to underlying gastroesophageal reflux disease or anxiety. EKG no acute changes. Troponins negative x5. Patient presented with similar complaints along with dysphagia in December 2018 was supposed to get stress test however it had to be canceled several times because patient was c/o persistent chest pain throughout the hospitalization, eventually Dr. Valiente stave saw operator was consulted and as per his evaluation chest pain was determined to be noncardiac and most likely related underlying GERD, and she was discharged to follow up with history nephrology and her stave saw operator. For her dysphagia she underwent barium swallow study which showed post gastric bypass with Mirna loop, distorted irregular channel possibly chronic peptic disease and ulceration. Given history of CAD and atypical chest pain was admitted to telemetry and started on beta-blockers, statins, nitroglycerin and morphine. Cardiology consulted, and recommendation was for patient to follow-up with her PCP and stave saw operator for possible outpatient stress test. No intervention recommended on this hospitalization. Please refer to cardiology note. (2) Gastroesophageal reflux disease with esophagitis History of gastric bypass. Taking Carafate and PPIs at home. Restarted home meds. Outpatient PCP and gastroenterology follow-up. (3) CAD (coronary artery disease), [place] coronary artery Restarted home meds. Plan as per 1. (4) Depression History of severe depression. Denied any homicidal or suicidal ideation. Restarted home meds. Outpatient PCP and psychiatry follow-up. (5) Obesity (BMI 30-39.9) Status post gastric bypass. Diet and lifestyle modification recommended. (6) History of pulmonary embolus (PE) Patient gives history of recently diagnosed PE. SPO2 WNL. D-dimer negative. Continue Eliquis. Outpatient PCP follow-up. Physical Exam Vital Signs: Temp Pulse Resp BP Pulse Ox 97.6 F 98 12 122/79 95 06/30/19 13:45 06/30/19 13:45 06/30/19 13:45 06/30/19 13:45 06/30/19 13:45 Intake & Output 06/30/19 07/01/19 07/02/19 06:59 06:59 06:59 Intake Total 1282 260 Balance 1282 260 Weight 101.5 kg General appearance: PRESENT: obese Respiratory exam: PRESENT: clear to auscultation scotty. ABSENT: rales, rhonchi, wheezes Cardiovascular exam: PRESENT: RRR. ABSENT: diastolic murmur, rubs, systolic murmur Pulses: PRESENT: normal dorsalis pedis pul GI/Abdominal exam: PRESENT: normal bowel sounds, soft. ABSENT: distended, guarding, mass, organolmegaly, rebound, tenderness Neurological exam: PRESENT: alert, awake, oriented to person, oriented to place, oriented to time, oriented to situation, CN II-XII grossly intact. ABSENT: motor sensory deficit Psychiatric exam: PRESENT: depressed Results Laboratory Results: WBC 6.2 10^3/uL (4.0-10.5) 06/29/19 04:50 RBC 3.63 10^6/uL (3.72-5.28) L 06/29/19 04:50 Hgb 11.1 g/dL (12.0-15.5) L 06/29/19 04:50 Hct 33.0 % (36.0-47.0) L 06/29/19 04:50 MCV 91 fl (80-97) 06/29/19 04:50 MCH 30.4 pg (27.0-33.4) 06/29/19 04:50 MCHC 33.5 g/dL (32.0-36.0) 06/29/19 04:50 RDW 15.7 % (11.5-14.0) H 06/29/19 04:50 Plt Count 187 10^3/uL (150-450) 06/29/19 04:50 Lymph % (Auto) 14.9 % (13-45) 06/28/19 12:32 Wilson % (Auto) 4.6 % (3-13) 06/28/19 12:32 Eos % (Auto) 1.2 % (0-6) 06/28/19 12:32 Baso % (Auto) 0.5 % (0-2) 06/28/19 12:32 Absolute Neuts (auto) 5.8 10^3/uL (1.7-8.2) 06/28/19 12:32 Absolute Lymphs (auto) 1.1 10^3/uL (0.5-4.7) 06/28/19 12:32 Absolute Monos (auto) 0.3 10^3/uL (0.1-1.4) 06/28/19 12:32 Absolute Eos (auto) 0.1 10^3/uL (0.0-0.6) 06/28/19 12:32 Absolute Basos (auto) 0.0 10^3/uL (0.0-0.2) 06/28/19 12:32 Seg Neutrophils % 78.8 % (42-78) H 06/28/19 12:32 PT 13.1 SEC (11.4-15.4) 06/29/19 04:50 INR 0.99 06/29/19 04:50 D-Dimer 0.44 ug/mL (0.00-0.50) 06/28/19 12:32 Sodium 138.4 mmol/L (137-145) 06/29/19 04:50 Potassium 3.9 mmol/L (3.6-5.0) 06/29/19 04:50 Chloride 102 mmol/L (98-107) 06/29/19 04:50 Carbon Dioxide 33 mmol/L (22-30) H 06/29/19 04:50 Anion Gap 3 (5-19) L 06/29/19 04:50 BUN 7 mg/dL (7-20) 06/29/19 04:50 Creatinine 0.69 mg/dL (0.52-1.25) 06/29/19 04:50 Est GFR ( Amer) > 60 (>60) 06/29/19 04:50 Est GFR (Non-Af Amer) Cancelled 06/28/19 11:10 Est GFR (MDRD) Non-Af > 60 (>60) 06/29/19 04:50 Glucose 82 mg/dL (75-110) 06/29/19 04:50 Calcium 8.1 mg/dL (8.4-10.2) L 06/29/19 04:50 Total Bilirubin 0.2 mg/dL (0.2-1.3) 06/29/19 04:50 Direct Bilirubin 0.0 mg/dL (0.0-0.4) 06/29/19 04:50 Neonat Total Bilirubin Not Reportable 06/29/19 04:50 Neonat Direct Bilirubin Not Reportable 06/29/19 04:50 Neonat Indirect Bili Not Reportable 06/29/19 04:50 AST 23 U/L (14-36) 06/29/19 04:50 ALT 13 U/L (<35) 06/29/19 04:50 Alkaline Phosphatase 101 U/L (38-126) 06/29/19 04:50 Troponin I < 0.012 ng/mL 06/29/19 12:45 Total Protein 5.5 g/dL (6.3-8.2) L 06/29/19 04:50 Albumin 2.9 g/dL (3.5-5.0) L 06/29/19 04:50 EGFR Cancelled 06/28/19 11:10 06/28/19 06/28/19 06/28/19 11:10 12:32 17:10 Troponin I Cancelled < 0.012 < 0.012 06/28/19 06/29/19 06/29/19 22:55 04:50 12:45 Troponin I < 0.012 < 0.012 < 0.012 Impressions: Chest X-Ray 06/28/19 00:00 IMPRESSION: Satisfactory catheter placement. copyright 2011 [employer]- All Rights Reserved Chest X-Ray 06/28/19 10:51 IMPRESSION: LINEAR ATELECTASIS IN THE LEFT LUNG. NO ACUTE RADIOGRAPHIC FINDING IN THE CHEST. Stroke Is this a Stroke Patient?: No Acute Heart Failure - Is this a Heart Failure Patient?: No
== END 2019-06-30 14:08 | disposition home or self-care (01) ==
LOC: ER 10:35 → EH 15:38 → 4N 17:30
PROVIDERS: ADMIT Internal Medicine; ATTEND Internal Medicine
DX: R07.89 Other chest pain (principal); K21.0 Gastro-esophageal reflux disease with esophagitis; I25.10 Atherosclerotic heart disease of native coronary artery without angina pectoris; F32.9 Major depressive disorder, single episode, unspecified; E66.01 Morbid (severe) obesity due to excess calories; R00.0 Tachycardia, unspecified; R06.00 Dyspnea, unspecified; R13.10 Dysphagia, unspecified; Z68.39 Body mass index [BMI] 39.0-39.9, adult; Z86.711 Personal history of pulmonary embolism; Z95.5 Presence of coronary angioplasty implant and graft; Z98.84 Bariatric surgery status; Z88.6 Allergy status to analgesic agent; Z88.8 Allergy status to other drugs, medicaments and biological substances; Z90.49 Acquired absence of other specified parts of digestive tract; Z87.891 Personal history of nicotine dependence; Z82.49 Family history of ischemic heart disease and other diseases of the circulatory system
CPT/HCPCS: 93005; 99285; 96374; 36415 ×2; 85025; 85027; 85610; 80053 ×2; 84484 ×2; 85379; 71046; 71045; 93010; 36558; 76937; G0378 ×4; C1751; A9270 ×12; J2270 ×3; J3490 ×2; J2405 ×2; J1642 ×3

== ENCOUNTER 2019-07-08 07:32 | Emergency (ER) | payer MEDICARE, MEDICAID ==
--- NOTE | 2019-07-08 12:01 | ER Document Report ---
ED Cardiac - General Chief Complaint: Chest Pain > 30 Stated Complaint: CHEST PAIN Time Seen by Provider: 07/08/19 08:17 Primary Care Provider: YAHAIRA WHITEHEAD MD [ACTIVE STAFF] - Follow up as needed Mode of Arrival: Ambulatory Information source: Patient Notes: Patient is a 54-year-old female presented emergency department chief complaint of chest pain that began 2 days ago. Patient reports chest pain is located on the left side of her chest under the left breast feels like a sharp stabbing/pressure. She states she is taken 6 nitroglycerin tablets in the last 24 hours without any relief. She reports history of coronary artery disease with 2 stents placed. She has a clinical data manager in [place]. She states she was recently discharged from this hospital after having a negative cardiac work-up. She also reports a remote history of pulmonary embolism for which she is on Eliquis for. TRAVEL OUTSIDE OF THE U[place] IN LAST 30 DAYS: No - Related Data Allergies/Adverse Reactions: acetaminophen [From Tylenol] Allergy (Verified 07/08/19 07:38) aspirin Allergy (Verified 07/08/19 07:38) fentanyl Allergy (Verified 07/08/19 07:38) mushroom Allergy (Verified 07/08/19 07:38) NSAIDS (Non-Steroidal Anti-Inflamma Allergy (Verified 07/08/19 07:38) Past Medical History - General Information source: Patient - Social History Smoking Status: Never Smoker Chew tobacco use (# tins/day): No Frequency of alcohol use: None Drug Abuse: None Family History: CAD. denies: DM, Hyperlipidemia, Hypertension, Malignancy Patient has suicidal ideation: No Patient has homicidal ideation: No - Past Medical History Cardiac Medical History: Reports: Hx Coronary Artery Disease Denies: Hx Atrial Fibrillation, Hx Congestive Heart Failure, Hx Heart Attack, Hx Hypercholesterolemia, Hx Hypertension Pulmonary Medical History: Denies: Hx Asthma, Hx COPD Neurological Medical History: Denies: Hx Seizures Endocrine Medical History: Denies: Hx Diabetes Mellitus Type 1, Hx Diabetes Mellitus Type 2, Hx Hyperthyroidism, Hx Hypothyroidism Renal/ Medical History: Reports: Hx Kidney Stones GI Medical History: Reports: Hx Gastroesophageal Reflux Disease. Denies: Hx Cirrhosis, Hx Crohn's Disease, Hx Hepatitis, Hx Ulcerative Colitis Musculoskeletal Medical History: Denies Hx Arthritis, Denies Hx Gout Skin Medical History: Denies Hx Eczema, Denies Hx Psoriasis Psychiatric Medical History: Reports: Hx Depression Infectious Medical History: Denies: Hx Hepatitis Past Surgical History: Reports: Hx Cardiac Catheterization - x2, Hx Section, Hx Cholecystectomy, Hx Coronary Stent - X 2, Hx Genitourinary Surgery - Gastric bypass, Hx Tonsillectomy - Immunizations Hx Diphtheria, Pertussis, Tetanus Vaccination: Yes Review of Systems - Review of Systems Constitutional: No symptoms reported EENT: No symptoms reported Cardiovascular: See HPI Respiratory: No symptoms reported Gastrointestinal: No symptoms reported Genitourinary: No symptoms reported Female Genitourinary: No symptoms reported Musculoskeletal: No symptoms reported Skin: No symptoms reported Hematologic/Lymphatic: No symptoms reported Neurological/Psychological: No symptoms reported Physical Exam - Vital signs Vitals: Temp Pulse Resp BP Pulse Ox 98.6 F 98 18 113/72 97 07/08/19 07:44 07/08/19 07:44 07/08/19 07:44 07/08/19 07:44 07/08/19 07:44 - Notes Notes: PHYSICAL EXAMINATION: GENERAL: Well-appearing, well-nourished and in no acute distress. HEAD: Atraumatic, normocephalic. EYES: Pupils equal round and reactive to light, extraocular movements intact, conjunctiva are normal. ENT: Nares patent, oropharynx clear without exudates. Moist mucous membranes. NECK: Normal range of motion, supple without lymphadenopathy LUNGS: Breath sounds clear to auscultation bilaterally and equal. No wheezes rales or rhonchi. HEART: Regular rate and rhythm without murmurs ABDOMEN: Soft, nontender, nondistended abdomen. No guarding, no rebound. No masses appreciated. Female : No CVA tenderness. Musculoskeletal: Normal range of motion, no pitting or edema. No cyanosis. NEUROLOGICAL: Cranial nerves grossly intact. Normal speech. Normal sensory, motor exams PSYCH: Normal mood, normal affect. SKIN: Warm, Dry, normal turgor, no rashes or lesions noted. Course - Re-evaluation Re-evalutation: 07/08/19 17:38 Called and spoke with on-call clinical data manager, Dr. Whitehead. Regarding patient's work-up today. She has had 2- troponins, normal lab work with the exception of the CBC which is clotted multiple times despite 10+ of any punctures. We will not redraw this at this time as patient has no signs or symptoms of an acute infectious process. Chest x-ray was unremarkable. EKG shows a sinus tachycardia, rate of 104, QTc 474, no ST segment elevations or depressions, this EKG is unchanged from multiple EKGs on record previously. - Vital Signs Vital signs: Temp Pulse Resp BP Pulse Ox 97.8 F 80 16 109/63 95 07/08/19 20:49 07/08/19 20:49 07/08/19 20:49 07/08/19 20:49 07/08/19 20:49 - Laboratory Result Diagrams: 07/08/19 11:02 07/08/19 11:02 Laboratory results interpreted by me: 07/08/19 11:02 Est GFR (MDRD) Non-Af 53 L Creatine Kinase 20 L Discharge - Discharge Clinical Impression: Chest pain Qualifiers: Chest pain type: unspecified Qualified Code(s): R07.9 - Chest pain, unspecified Condition: Stable Disposition: HOME, SELF-CARE Additional Instructions: Chest Pain of Unclear Cause The exact cause of your chest pain isn't clear. Fortunately, there is no ev idence of a dangerous medical condition. Further testing may be required to find the source of the pain. Most often, we find that this pain is coming from the chest wall -- the muscles or rib joints in the chest. But chest pain can come from the lung and lung lining, the esophagus, the heart valves or heart lining, and even the stomach or gallbladder. Rest. Eat lightly until the pain is gone. We may prescribe medicine for pain and inflammation. You should call the physician immediately if the pain radiates to the shoulder, jaw or arms; if you start to run a fever or develop a cough; or if you develop shortness of breath, or other new or alarming symptoms. Your cardiac work-up today was negative. As discussed previously it is very important for you to return to [place] so you can follow-up with your clinical data manager as was recommended at your most previous admission to our hospital. If you are unable to return to [place] to follow-up with your clinical data manager please consider following up with a clinical data manager here in [place]. I have enclosed the phone number and contact information for one below. It is very important that you make this follow-up. Referrals: YAHAIRA WHITEHEAD MD [ACTIVE STAFF] - Follow up as needed
[2019-07-08 12:12] LABS: ALBUMIN 3.9 g/dL (3.5-5.0); ALKALINE PHOSPHATASE 119 U/L (38-126); ANION GAP 8 (5-19); ASPARTATE AMINO TRANSFERASE 31 U/L (14-36); BILIRUBIN,DIRECT 0.1 mg/dL (0.0-0.4); BILIRUBIN,TOTAL 0.4 mg/dL (0.2-1.3); BLOOD UREA NITROGEN 15 mg/dL (7-20); CALCIUM 8.8 mg/dL (8.4-10.2); CARBON DIOXIDE 29 mmol/L (22-30); CHLORIDE 102 mmol/L (98-107); CREATINE KINASE 20 U/L (30-135); GLUCOSE 94 mg/dL (75-110); POTASSIUM 4.2 mmol/L (3.6-5.0)
[2019-07-08 12:13] LABS: CREATINE KINASE MB < 0.22 ng/mL (<4.55); TROPONIN I < 0.012 ng/mL
--- NOTE | 2019-07-08 17:24 | EKG REPORT ---
SEVERITY:- BORDERLINE ECG - SINUS TACHYCARDIA BORDERLINE T ABNORMALITIES, ANTERIOR LEADS : Confirmed by: Zarina Ordoñez 08-Jul-2019 17:23:38
--- NOTE | 2019-07-08 20:35 | RADIOLOGY REPORT (SQ) ---
EXAM DESCRIPTION: NM LUNG VENTILATION PERFUSION COMPLETED DATE/TME: 07/08/2019 17:40 CLINICAL HISTORY: 54 years, Female, chest pain COMPARISON: Prior study from 05/02/2019 RADIONUCLIDE AND DOSE: 29.5 mCi technetium 99m DTPA inhalation 5.87 mCi technetium 99m MAA intravenous. However, the patient's intravenous line blew during the examination with only a small amount of radionuclide actually entering the patient's intravenous system. TECHNIQUE: Limited anterior/posterior imaging of the chest was performed. LIMITATIONS: The study is essentially nondiagnostic as the patient's intravenous line blew during the examination with only a small amount of radionuclide actually entering the patient's intravenous system. FINDINGS: On ventilation imaging, there is diffuse bronchial clumping of the radiotracer about the central airways bilaterally. There is a fairly uniform distribution of the radiotracer on the anterior/posterior ventilation images otherwise. In addition, there is elevation of the left hemidiaphragm. Unfortunately, the perfusion images are nondiagnostic as not enough radionuclide entered the patient's intravenous system. IMPRESSION: Nondiagnostic study for the evaluation of pulmonary embolism secondary to the patient's intravenous line blowing during the administration of technetium 99m MAA. Clumping of DTPA aerosol about the central airways bilaterally. copyright 2010 [email or web address]- All Rights Reserved
[2019-07-08 20:51] VITALS: BP 109/63
== END 2019-07-08 20:28 | disposition home or self-care (01) ==
LOC: ER 07:32
DX: R07.9 Chest pain, unspecified (principal); I25.10 Atherosclerotic heart disease of native coronary artery without angina pectoris; Z88.6 Allergy status to analgesic agent; Z86.711 Personal history of pulmonary embolism; Z79.01 Long term (current) use of anticoagulants; Z87.442 Personal history of urinary calculi; Z90.49 Acquired absence of other specified parts of digestive tract
CPT/HCPCS: 93005; 99285; 36415; 82553; 82550; 80053; 84484; 78582; 93010; A9540; A9567; Q9969

== ENCOUNTER 2019-07-24 00:10 | Emergency (ER) | payer MEDICARE, MEDICAID ==
[2019-07-24] MEDS ORDERED: ONDANSETRON HCL INJ/PF 4 MG/2 ML SDV IV ONE (01:16)
[2019-07-24] MEDS ORDERED: MORPHINE SULFATE 10 MG/ML INJ IV ONE (01:16)
--- NOTE | 2019-07-24 01:23 | ER Document Report ---
ED General - General TRAVEL OUTSIDE OF THE [place].S. IN LAST 30 DAYS: No <GILBERT MCKNIGHT - Last Filed: 07/24/19 07:50> <ELEONORA BARKER - Last Filed: 07/24/19 08:40> - General Chief Complaint: Upper Abdominal Pain Stated Complaint: Upper Abdominal Pain Time Seen by Provider: 07/24/19 00:54 Notes: Patient is a 54-year-old female that comes to the emergency department for chief complaint of left upper abdominal pain, epigastric pain, and pain up into her chest and left breast. She states that symptoms started at rest at about 4 PM while she was watching TV. She states that she became very nauseated as well. She denies vomiting, she had a normal bowel movement without any black or bloody stools today, she denies fever, back pain, lower abdominal pain. Patient denies shortness of breath or cough. Patient states that she has gastric bypass, she had a recent "scope procedure" and they told her that there was inflammation and that this might need to be "redone", she states she has a follow-up in [place] to schedule additional management for this. She also has a medical history including MT with stents in 2017 in [place], remote history of DVT and currently on Eliquis, cholecystectomy, hysterectomy, and former smoking. She was admitted here for chest pain rule out early in the month, had a cardiac consult and was determined to not have cardiac chest pain by cardiology, had the scope procedure which did show inflammation of the epigastric distal tract. Patient states she is visiting from [place] today to her family in town. She denies recent travel or sick exposures. Denies sore throat, congestion, cough, or any other "cold symptoms". (GILBERT MCKNIGHT) - Related Data Allergies/Adverse Reactions: acetaminophen [From Tylenol] Allergy (Verified 07/08/19 07:38) aspirin Allergy (Verified 07/08/19 07:38) fentanyl Allergy (Verified 07/08/19 07:38) mushroom Allergy (Verified 07/08/19 07:38) NSAIDS (Non-Steroidal Anti-Inflamma Allergy (Verified 07/08/19 07:38) Past Medical History - General Information source: Patient - Social History Smoking Status: Former Smoker Frequency of alcohol use: None Drug Abuse: None Lives with: Family Family History: CAD. denies: DM, Hyperlipidemia, Hypertension, Malignancy - Past Medical History Cardiac Medical History: Reports: Hx Coronary Artery Disease, Hx DVT, Hx Pulmonary Embolism Denies: Hx Atrial Fibrillation, Hx Congestive Heart Failure, Hx Heart Attack, Hx Hypercholesterolemia, Hx Hypertension Pulmonary Medical History: Denies: Hx Asthma, Hx COPD Neurological Medical History: Denies: Hx Seizures Endocrine Medical History: Denies: Hx Diabetes Mellitus Type 1, Hx Diabetes Mellitus Type 2, Hx Hyperthyroidism, Hx Hypothyroidism Renal/ Medical History: Reports: Hx Kidney Stones GI Medical History: Reports: Hx Gastroesophageal Reflux Disease. Denies: Hx Cirrhosis, Hx Crohn's Disease, Hx Hepatitis, Hx Ulcerative Colitis Musculoskeletal Medical History: Denies Hx Arthritis, Denies Hx Gout Skin Medical History: Denies Hx Eczema, Denies Hx Psoriasis Psychiatric Medical History: Reports: Hx Depression Infectious Medical History: Denies: Hx Hepatitis Past Surgical History: Reports: Hx Cardiac Catheterization - x2, Hx Section, Hx Cholecystectomy, Hx Coronary Stent - X 2, Hx Genitourinary Surgery - Gastric bypass, Hx Tonsillectomy - Immunizations Hx Diphtheria, Pertussis, Tetanus Vaccination: Yes <GILBERT MCKNIGHT - Last Filed: 07/24/19 07:50> Review of Systems - Review of Systems Constitutional: No symptoms reported EENT: No symptoms reported Cardiovascular: See HPI Respiratory: No symptoms reported Gastrointestinal: See HPI Genitourinary: No symptoms reported Female Genitourinary: No symptoms reported Musculoskeletal: No symptoms reported Skin: No symptoms reported Hematologic/Lymphatic: No symptoms reported Neurological/Psychological: No symptoms reported <GILBERT MCKNIGHT - Last Filed: 07/24/19 07:50> Physical Exam <GILBERT MCKNIGHT - Last Filed: 07/24/19 07:50> - Vital signs Vitals: Resp Pulse Ox 15 97 07/24/19 00:44 07/24/19 00:44 - Notes Notes: GENERAL: Alert, interacts well. No acute distress. HEAD: Normocephalic, atraumatic. EYES: Pupils equal, round, and reactive to light. Extraocular movements intact. ENT: Oral mucosa moist, tongue midline. Oropharynx unremarkable. Airway patent. LUNGS: Clear to auscultation bilaterally, no wheezes, rales, or rhonchi. No respiratory distress. HEART: Regular rate and rhythm. No murmur ABDOMEN: Mild tenderness in the left upper quadrant and epigastric areas. Otherwise unremarkable abdomen which is soft and benign. Bowel sounds present. EXTREMITIES: Moves all 4 extremities spontaneously. No edema, normal radial and dorsalis pedis pulses bilaterally. No cyanosis. BACK: no cervical, thoracic, lumbar midline tenderness. No saddle anesthesia, normal distal neurovascular exam. NEUROLOGICAL: Alert and oriented x3. Normal speech. Cranial nerves II through XII grossly intact. PSYCH: Somewhat flat affect SKIN: Warm, dry, normal turgor. No rashes or lesions noted. (GILBERT MCKNIGHT) Course - Laboratory Result Diagrams: 07/24/19 03:07/24/19 03:29 <GILBERT MCKNIGHT - Last Filed: 07/24/19 07:50> - Laboratory Result Diagrams: 07/24/19 03:07/24/19 03:29 <ELEONORA BARKER - Last Filed: 07/24/19 08:40> - Re-evaluation Re-evalutation: Patient has some left upper quadrant and epigastric tenderness with extension into the chest. She does not appear to be in distress. Vital signs unremarkable. EKG at baseline. Chest x-ray negative. CBC unremarkable, chemistry unremarkable, lipase in the low 300s. Troponin is negative. Patient became very nauseated, vomited again. She vomited after medications, she was remedicated including pain medication. After this she had resolution of her symptoms. Patient was admitted earlier this month, medically cleared, she states she saw her water pollution control technician and he stated he did not need to see her again for 3 months and schedule her for this. Based on her history, symptoms, location of pain, nausea, vomiting I suspect this is inflammation of the upper gastrointestinal tract. This is consistent with recent scope performed here. She was given Protonix and fluids. On evaluation patient is still reporting sharp intermittent pain. Because of her history of gastric bypass, vomiting, pain, decision was made to proceed with CAT scan. CAT scan negative other than some distal constipation. Patient trialed on p.o. medications and she is drinking fluids. Troponin cycled. (GILBERT MCKNIGHT) 07/24/19 08:00 Report received on the patient. Second troponin pending 07/24/19 08:33 I evaluated the patient. She follows with Dr. Pretty Long, bariatric surgery at [facility]. She also has a director of grants Dr. Nelson locally. States the director of grants is supposed to admit her to the hospital for 24- hour monitoring August 17. Patient should call both of these physicians today to schedule follow-up in their office. Patient is in the emergency department frequently for similar symptoms that she presented with today, this was discussed at length with her. Her second troponin is negative, this is more likely gastric in nature. Medications were called in for the patient by the off going provider. Patient is aware of this. She will return for any concerning symptoms but otherwise will plan to follow-up with her primary director of grants and bariatric surgeon (ELEONORA BARKER) - Vital Signs Vital signs: Temp Pulse Resp BP Pulse Ox 97.5 F 16 110/76 100 07/24/19 07:02 07/24/19 07:00 07/24/19 07:00 07/24/19 07:00 - Laboratory Laboratory results interpreted by me: 07/24/19 07/24/19 03:29 03:29 RDW 14.6 H Carbon Dioxide 32 H Anion Gap 4 L Lipase 363.2 H - EKG Interpretation by Me Additional EKG results interpreted by me: EKG shows sinus rhythm at a rate of 78, normal axis, QTC 456. Flattened T waves anteriorly and inferiorly but no T wave inversions or ST segment changes in consecutive leads. No significant change from prior. (GILBERT MCKNIGHT) Discharge <GILBERT MCKNIGHT - Last Filed: 07/24/19 07:50> <ELEONORA BARKER - Last Filed: 07/24/19 08:40> - Discharge Clinical Impression: Upper abdominal pain Chest pain Qualifiers: Chest pain type: unspecified Qualified Code(s): R07.9 - Chest pain, unspecified Vomiting Qualifiers: Vomiting type: unspecified Vomiting Intractability: non-intractable Nausea presence: with nausea Qualified Code(s): R11.2 - Nausea with vomiting, unspecified Condition: Stable Disposition: HOME, SELF-CARE Additional Instructions: Your CAT scan imaging and work-up including cardiac work-up did not show any concerning findings. I suspect your pain and your vomiting are from inflammation of your upper gastrointestinal tract, possibly even an ulcer. Please follow-up today with your provider and bariatric surgeon for additional management. I recommend the Carafate, Zofran, clear fluids initially, and progression of bland diet. Return if you worsen including uncontrolled vomiting, severe worsening pain, fever, vomiting blood, black stools, or any other concerning or worsening sympto ms. Prescriptions: Sucralfate [Carafate 1 gm Tablet] 1 gm PO QID #20 tablet Ondansetron [Zofran Odt 4 mg Tablet] 1 - 2 tab PO Q4H PRN #15 tab.rapdis PRN Reason: For Nausea/Vomiting
--- NOTE | 2019-07-24 01:54 | RADIOLOGY REPORT (SQ) ---
Chest one view on 07/24/2019 at 1:35 AM CLINICAL INDICATION: Chest pain COMPARISON: 06/28/2019 FINDINGS: Previously noted right IJ catheter has been removed. There is linear atelectasis or scarring in the left lower lung. Heart is borderline in size. The lungs are otherwise clear. Pulmonary vascularity is within normal limits. IMPRESSION: No acute disease.
[2019-07-24] MEDS ORDERED: DIPHENHYDRAMINE HCL 50 MG/ML VIAL IV ONE (02:14)
[2019-07-24] MEDS ORDERED: METOCLOPRAMIDE HCL INJ/PF 10 MG/2 ML SDV IV ONE ×2 (02:14→02:52)
[2019-07-24] MEDS ORDERED: PANTOPRAZOLE SODIUM 40 MG VIAL IV ONE (02:52)
[2019-07-24] MEDS ORDERED: HYDROMORPHONE HCL INJ/PF 2 MG/ML AMPULE IV ONE (02:56)
[2019-07-24 03:38] LABS: ABSOLUTE EOSINOPHILS # (AUTO) 0.1 10^3/uL (0.0-0.6); ABSOLUTE LYMPHOCYTES (AUTO) 1.9 10^3/uL (0.5-4.7); ABSOLUTE MONOCYTES (AUTO) 0.4 10^3/uL (0.1-1.4); ABSOLUTE NEUT (AUTO) 4.4 10^3/uL (1.7-8.2); BASOPHILS % (AUTO) 0.7 % (0-2); HEMATOCRIT 37.6 % (36.0-47.0); HEMOGLOBIN 12.7 g/dL (12.0-15.5); LYMPHOCYTES % (AUTO) 27.7 % (13-45); MEAN CORPUSCULAR HEMOGLOBIN 30.5 pg (27.0-33.4); MEAN CORPUSCULAR HGB CONC 33.8 g/dL (32.0-36.0); MEAN CORPUSCULAR VOLUME 90 fl (80-97); MONOCYTES % (AUTO) 5.9 % (3-13); PLATELET COUNT 199 10^3/uL (150-450); RED BLOOD COUNT 4.17 10^6/uL (3.72-5.28); RED CELL DISTRIBUTION WIDTH 14.6 % (11.5-14.0); SEGMENTED NEUTROPHILS % (AUTO) 63.7 % (42-78); TOTAL CELLS COUNTED % (AUTO) 100 %; WHITE BLOOD COUNT 6.9 10^3/uL (4.0-10.5)
[2019-07-24] MEDS ORDERED: NORMAL SALINE 1000 ML 1,000 ML IV ONE (03:48)
[2019-07-24 04:04] LABS: ALBUMIN 3.6 g/dL (3.5-5.0); ALKALINE PHOSPHATASE 114 U/L (38-126); ASPARTATE AMINO TRANSFERASE 30 U/L (14-36); BILIRUBIN,TOTAL 0.3 mg/dL (0.2-1.3); BLOOD UREA NITROGEN 10 mg/dL (7-20); CALCIUM 8.7 mg/dL (8.4-10.2); CARBON DIOXIDE 32 mmol/L (22-30); CHLORIDE 103 mmol/L (98-107); GLUCOSE 92 mg/dL (75-110); TOTAL PROTEIN 6.5 g/dL (6.3-8.2)
[2019-07-24 04:29] LABS: ANION GAP 4 (5-19)
--- NOTE | 2019-07-24 05:58 | RADIOLOGY REPORT (SQ) ---
CT abdomen and pelvis with contrast on 07/24/2019 5:25 AM CLINICAL INDICATION: Sharp upper abdominal pain, vomiting, history of gastric bypass surgery TECHNIQUE: Multiple axial images are obtained throughout the abdomen and pelvis following the administration of IV contrast, 100 mL of Omnipaque 350 contrast was administered intravenously without complication. This exam was performed according to our departmental dose-optimization program, which includes automated exposure control, adjustment of the mA and/or kV according to patient size and/or use of iterative reconstruction technique. Total DLP is 2089.49 mGy*cm. COMPARISON: 05/02/2019 FINDINGS: Abdomen: There is mild bibasilar atelectasis and/or scarring. The patient is status post gastric bypass surgery. There is no evidence of obstruction or internal hernia. The patient is status post cholecystectomy. Solid abdominal organs are unremarkable. There is no abdominal adenopathy. Vascular calcifications are noted. There is no free fluid or free air within the abdomen. The abdominal portion of the GI tract is otherwise unremarkable. Pelvis: Increased stool is noted in the rectosigmoid colon consistent with constipation. Pelvic portion of the GI tract including the appendix is otherwise unremarkable. The patient is status post hysterectomy. There is no free fluid in the pelvis. There is no pelvic adenopathy. Degenerative changes are noted in the spine. 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 The patient is status post vertebroplasty/kyphoplasty at L1 and L2. No acute bony abnormality is noted. IMPRESSION: 1. Increased stool in the rectosigmoid colon suggesting constipation. 2. Otherwise no acute abnormality.
[2019-07-24] MEDS ORDERED: FAMOTIDINE 20 MG TABLET PO ONE (06:00)
[2019-07-24] MEDS ORDERED: OXYCODONE HCL IR 5 MG TABLET PO ONE (06:00)
[2019-07-24] MEDS ORDERED: SUCRALFATE 1 GM TABLET PO ONE (06:00)
[2019-07-24 07:03] VITALS: BP 110/76
[2019-07-24] MEDS ORDERED: HYDROCODONE/ACETAMINOPHEN 5-325 MG (6 TAB/ER DISP) PO PRN (07:50)
[2019-07-24] MEDS ORDERED: ONDANSETRON ODT 4 MG TAB (6 TAB/ER DISP) PO PRN (07:50)
--- NOTE | 2019-07-24 11:20 | EKG REPORT ---
SEVERITY:- BORDERLINE ECG - SINUS RHYTHM BORDERLINE T ABNORMALITIES, ANTERIOR LEADS : Confirmed by: Compa Kirkland MD 24-Jul-2019 11:20:19
== END 2019-07-24 09:00 | disposition home or self-care (01) ==
LOC: ER 00:10
DX: R10.10 Upper abdominal pain, unspecified (principal); R07.9 Chest pain, unspecified; R11.2 Nausea with vomiting, unspecified; Z88.6 Allergy status to analgesic agent; Z98.84 Bariatric surgery status; Z86.718 Personal history of other venous thrombosis and embolism; Z90.49 Acquired absence of other specified parts of digestive tract
CPT/HCPCS: 93005; 96376; 99284; 96361; 96374; 96375; 36415; 83690; 85025; 80053; 84484; 71045; 74177; 93010; A9270 ×5; J1200; J2765; J2270; J1170; C9113; J2405; J7030

== ENCOUNTER 2019-07-28 07:14 | Emergency (ER) | payer MEDICARE, MEDICAID ==
--- NOTE | 2019-07-28 07:50 | ER Document Report ---
ED General - General Chief Complaint: Chest Pain Stated Complaint: CHEST PAIN Time Seen by Provider: 07/28/19 07:48 Information source: Patient TRAVEL OUTSIDE OF THE [place] IN LAST 30 DAYS: No - HPI Onset: Yesterday Onset/Duration: Gradual, Worse Quality of pain: Stabbing Severity: Moderate Pain Level: 4 Context: Patient is a 54-year-old female presenting to the emergency department chief complaint of chest pain. Patient states it is left chest sharp 8 out of 10 it started last night around 6 PM while she was doing activities of daily living. Patient denies travel history trauma history sick contacts. Patient denies nausea vomiting diarrhea cough or cold type symptoms. Associated symptoms: None Exacerbated by: Denies Relieved by: Denies Similar symptoms previously: Yes Recently seen / treated by doctor: Yes - Related Data Allergies/Adverse Reactions: acetaminophen [From Tylenol] Allergy (Verified 07/08/19 07:38) aspirin Allergy (Verified 07/08/19 07:38) fentanyl Allergy (Verified 07/08/19 07:38) mushroom Allergy (Verified 07/08/19 07:38) NSAIDS (Non-Steroidal Anti-Inflamma Allergy (Verified 07/08/19 07:38) Past Medical History - General Information source: Patient, [facility] Records - Social History Smoking Status: Unknown if Ever Smoked Cigarette use (# per day): No Chew tobacco use (# tins/day): No Smoking Education Provided: No Frequency of alcohol use: None Drug Abuse: None Lives with: Alone Family History: CAD. denies: DM, Hyperlipidemia, Hypertension, Malignancy Patient has suicidal ideation: No Patient has homicidal ideation: No - Past Medical History Cardiac Medical History: Reports: Hx Coronary Artery Disease, Hx DVT, Hx Pulmonary Embolism Denies: Hx Atrial Fibrillation, Hx Congestive Heart Failure, Hx Heart Attack, Hx Hypercholesterolemia, Hx Hypertension Pulmonary Medical History: Denies: Hx Asthma, Hx COPD Neurological Medical History: Denies: Hx Seizures Endocrine Medical History: Denies: Hx Diabetes Mellitus Type 1, Hx Diabetes Mellitus Type 2, Hx Hyperthyroidism, Hx Hypothyroidism Renal/ Medical History: Reports: Hx Kidney Stones GI Medical History: Reports: Hx Gastroesophageal Reflux Disease. Denies: Hx Cirrhosis, Hx Crohn's Disease, Hx Hepatitis, Hx Ulcerative Colitis Musculoskeletal Medical History: Denies Hx Arthritis, Denies Hx Gout Skin Medical History: Denies Hx Eczema, Denies Hx Psoriasis Psychiatric Medical History: Reports: Hx Depression Infectious Medical History: Denies: Hx Hepatitis Past Surgical History: Reports: Hx Cardiac Catheterization - x2, Hx Section, Hx Cholecystectomy, Hx Coronary Stent - X 2, Hx Genitourinary Surgery - Gastric bypass, Hx Tonsillectomy - Immunizations Hx Diphtheria, Pertussis, Tetanus Vaccination: Yes Review of Systems - Review of Systems Constitutional: No symptoms reported EENT: No symptoms reported Cardiovascular: See HPI, Chest pain Respiratory: No symptoms reported Gastrointestinal: No symptoms reported Genitourinary: No symptoms reported Female Genitourinary: No symptoms reported Musculoskeletal: No symptoms reported Skin: No symptoms reported Hematologic/Lymphatic: No symptoms reported Neurological/Psychological: No symptoms reported Physical Exam - Vital signs Vitals: Temp Pulse Resp BP Pulse Ox 97.5 F 93 20 114/74 91 L 07/28/19 07:28 07/28/19 07:28 07/28/19 07:28 07/28/19 07:28 07/28/19 07:28 - Notes Notes: PHYSICAL EXAMINATION: GENERAL: Well-appearing, well-nourished and in no acute distress. HEAD: Atraumatic, normocephalic. EYES: Pupils equal round and reactive to light, extraocular movements intact, sclera anicteric, conjunctiva are normal. ENT: nares patent, oropharynx clear without exudates. Moist mucous membranes. NECK: Normal range of motion, supple without lymphadenopathy, no appreciable JVD LUNGS: Lungs clear to auscultation bilaterally and equal. No wheezes rales or rhonchi. Patient is complaining of pain to the left chest below her left breast. HEART: Regular rate and rhythm without murmurs ABDOMEN: Soft, nontender, normal bowel sounds. No guarding, no rebound. No masses appreciated. EXTREMITIES: Active full range of motion, no pitting or edema. No cyanosis. 2+ pulses x4 NEUROLOGICAL: No focal neurological deficits. Moves all extremities spontaneously and on command. Patient is markedly anxious SKIN: Warm, Dry, and intact. Normal turgor, no rashes or lesions noted. Course - Re-evaluation Re-evalutation: 07/28/19 12:26 Patient has been maintained on a school lunch monitor while in emergency department. She has remained stable but once the patient was settled into the room she continually has asked for pain medication. I advised the patient that I was going to evaluate her findings before giving her pain medication. Patient had recently been seen for same pain in the same location. I was advised by nursing staff that the patient stated that she was not staying since we would not give her pain medication and signed out AGAINST MEDICAL ADVICE prior to my being able to get over and see the patient and talk to work. - Vital Signs Vital signs: Temp Pulse Resp BP Pulse Ox 97.5 F 93 13 108/64 94 07/28/19 07:28 07/28/19 07:28 07/28/19 08:39 07/28/19 08:39 07/28/19 08:39 - Laboratory Result Diagrams: 07/28/19 08:07 07/28/19 08:07 Laboratory results interpreted by me: 07/28/19 07/28/19 08:07 08:07 Hct 35.4 L RDW 14.5 H Sodium 136.4 L Creatine Kinase 22 L Lipase 22.5 L - Diagnostic Test Radiology reviewed: Reports reviewed - EKG Interpretation by Me EKG shows normal: Sinus rhythm Rate: Normal Rhythm: NSR Additional EKG results interpreted by me: 07/28/19 08:38 EKG is interpreted by me demonstrates sinus rhythm 89 bpm there is no ST elevation no axis deviation no ectopy and no old EKG available at this time for comparison. Discharge - Discharge Clinical Impression: Epigastric pain Chest pain Qualifiers: Chest pain type: unspecified Qualified Code(s): R07.9 - Chest pain, unspecified Condition: Stable Disposition: AGAINST MEDICAL ADVICE
[2019-07-28 08:24] LABS: ABSOLUTE BASOPHILS # (AUTO) 0.1 10^3/uL (0.0-0.2); ABSOLUTE EOSINOPHILS # (AUTO) 0.1 10^3/uL (0.0-0.6); ABSOLUTE LYMPHOCYTES (AUTO) 1.3 10^3/uL (0.5-4.7); ABSOLUTE MONOCYTES (AUTO) 0.5 10^3/uL (0.1-1.4); ABSOLUTE NEUT (AUTO) 5.1 10^3/uL (1.7-8.2); BASOPHILS % (AUTO) 1.3 % (0-2); EOSINOPHILS % (AUTO) 1.4 % (0-6); HEMATOCRIT 35.4 % (36.0-47.0); HEMOGLOBIN 12.3 g/dL (12.0-15.5); MEAN CORPUSCULAR HEMOGLOBIN 31.4 pg (27.0-33.4); MEAN CORPUSCULAR HGB CONC 34.7 g/dL (32.0-36.0); MEAN CORPUSCULAR VOLUME 91 fl (80-97); MONOCYTES % (AUTO) 6.4 % (3-13); PLATELET COUNT 192 10^3/uL (150-450); RED BLOOD COUNT 3.91 10^6/uL (3.72-5.28); RED CELL DISTRIBUTION WIDTH 14.5 % (11.5-14.0); SEGMENTED NEUTROPHILS % (AUTO) 71.9 % (42-78); TOTAL CELLS COUNTED % (AUTO) 100 %; WHITE BLOOD COUNT 7.1 10^3/uL (4.0-10.5)
--- NOTE | 2019-07-28 08:27 | RADIOLOGY REPORT (SQ) ---
EXAM DESCRIPTION: CHEST 2 VIEWS IMAGES COMPLETED DATE/TIME: 07/28/2019 8:07 am REASON FOR STUDY: chest pain COMPARISON: 07/24/2019 EXAM PARAMETERS: NUMBER OF VIEWS: two views TECHNIQUE: Digital Frontal and Lateral radiographic views of the chest acquired. RADIATION DOSE: NA LIMITATIONS: none FINDINGS: LUNGS AND PLEURA: Persistent linear atelectasis in the left base. Lung dan are otherwi se clear. No effusions. MEDIASTINUM AND HILAR STRUCTURES: No masses or contour abnormalities. HEART AND VASCULAR STRUCTURES: Heart normal size. No evidence for failure. BONES: No acute findings. HARDWARE: None in the chest. OTHER: No other significant finding. IMPRESSION: Linear atelectasis in the left base. No other significant findings. TECHNICAL DOCUMENTATION: JOB ID: [id number] 2010 [employer]- All Rights Reserved Reading location - IP/workstation name: [email or web address]
[2019-07-28 08:42] VITALS: BP 108/64
[2019-07-28 08:42] LABS: ALBUMIN 3.5 g/dL (3.5-5.0); ALKALINE PHOSPHATASE 113 U/L (38-126); ANION GAP 7 (5-19); ASPARTATE AMINO TRANSFERASE 24 U/L (14-36); BILIRUBIN,TOTAL 0.4 mg/dL (0.2-1.3); BLOOD UREA NITROGEN 10 mg/dL (7-20); CALCIUM 9.2 mg/dL (8.4-10.2); CARBON DIOXIDE 28 mmol/L (22-30); CHLORIDE 101 mmol/L (98-107); CREATINE KINASE 22 U/L (30-135); GLUCOSE 91 mg/dL (75-110); TOTAL PROTEIN 6.6 g/dL (6.3-8.2)
[2019-07-28 09:01] LABS: CREATINE KINASE MB < 0.22 ng/mL (<4.55); TROPONIN I < 0.012 ng/mL
--- NOTE | 2019-07-28 09:23 | EKG REPORT ---
SEVERITY:- NORMAL ECG - SINUS RHYTHM : Confirmed by: Zarina Ordoñez 28-Jul-2019 09:22:53
== END 2019-07-28 09:00 | disposition left against medical advice (07) ==
LOC: ER 07:14
DX: R07.9 Chest pain, unspecified (principal); R10.13 Epigastric pain; I25.10 Atherosclerotic heart disease of native coronary artery without angina pectoris; Z86.711 Personal history of pulmonary embolism; Z86.718 Personal history of other venous thrombosis and embolism; Z95.5 Presence of coronary angioplasty implant and graft; Z98.84 Bariatric surgery status; Z88.8 Allergy status to other drugs, medicaments and biological substances; Z91.018 Allergy to other foods; Z88.6 Allergy status to analgesic agent; Z88.5 Allergy status to narcotic agent; Z82.49 Family history of ischemic heart disease and other diseases of the circulatory system; Z53.29 Procedure and treatment not carried out because of patient's decision for other reasons
CPT/HCPCS: 36415; 71046; 80053; 82550; 82553; 83690; 84484; 85025; 93005; 93010; 99285

== ENCOUNTER 2019-09-18 18:37 | Emergency (ER) | payer MEDICARE, MEDICAID ==
--- NOTE | 2019-09-18 18:49 | EKG REPORT ---
SEVERITY:- BORDERLINE ECG - SINUS TACHYCARDIA BORDERLINE T ABNORMALITIES, ANTERIOR LEADS BORDERLINE PROLONGED QT INTERVAL : Confirmed by: Solange Hernandez MD 18-Sep-2019 18:48:35
[2019-09-18] MEDS ORDERED: NITROGLYCERIN 0.4 MG/TAB 25 TAB/BOTTLE SL PRN (19:30)
--- NOTE | 2019-09-18 19:30 | ER Document Report ---
ED Medical Screen (RME) - General Chief Complaint: Chest Pain Stated Complaint: CHEST PAIN Time Seen by Provider: 09/18/19 19:24 Notes: Patient is a 54-year-old female with a history of cardiac stent placement 4 years ago who presents emergency department with chest pain. Patient states that her pain started at 4:00 this morning. She took 3 nitroglycerin and did not have any relief of her symptoms. Her last dose of nitroglycerin was at 1 600. Patient is currently on Plavix. States the pain is a heaviness in her mid chest. States it feels similar to when she had her heart attack 4 years ago. Exam: S1, S2. I have greeted and performed a rapid initial assessment of this patient. A comprehensive ED assessment and evaluation of the patient, analysis of test results and completion of medical decision making process will be conducted by an additional ED providers. TRAVEL OUTSIDE OF THE [place] IN LAST 30 DAYS: No - Related Data Allergies/Adverse Reactions: acetaminophen [From Tylenol] Allergy (Verified 07/08/19 07:38) aspirin Allergy (Verified 07/08/19 07:38) fentanyl Allergy (Verified 07/08/19 07:38) mushroom Allergy (Verified 07/08/19 07:38) NSAIDS (Non-Steroidal Anti-Inflamma Allergy (Verified 07/08/19 07:38) Past Medical History - Past Medical History Cardiac Medical History: Reports: Hx Coronary Artery Disease, Hx DVT, Hx Pulmonary Embolism Denies: Hx Atrial Fibrillation, Hx Congestive Heart Failure, Hx Heart Attack, Hx Hypercholesterolemia, Hx Hypertension Pulmonary Medical History: Denies: Hx Asthma, Hx COPD Neurological Medical History: Denies: Hx Seizures Endocrine Medical History: Denies: Hx Diabetes Mellitus Type 1, Hx Diabetes Mellitus Type 2, Hx Hyperthyroidism, Hx Hypothyroidism Renal/ Medical History: Reports: Hx Kidney Stones GI Medical History: Reports: Hx Gastroesophageal Reflux Disease. Denies: Hx Cirrhosis, Hx Crohn's Disease, Hx Hepatitis, Hx Ulcerative Colitis Musculoskeltal Medical History: Denies Hx Arthritis, Denies Hx Gout Skin Medical History: Denies Hx Eczema, Denies Hx Psoriasis Psychiatric Medical History: Reports: Hx Depression Infectious Medical History: Denies: Hx Hepatitis Past Surgical History: Reports: Hx Cardiac Catheterization - x2, Hx Section, Hx Cholecystectomy, Hx Coronary Stent - X 2, Hx Genitourinary Surgery - Gastric bypass, Hx Tonsillectomy - Immunizations Hx Diphtheria, Pertussis, Tetanus Vaccination: Yes Physical Exam - Vital signs Vitals: Temp Pulse Resp BP Pulse Ox 97.9 F 108 H 16 126/87 H 97 09/18/19 18:47 09/18/19 18:47 09/18/19 18:47 09/18/19 18:47 09/18/19 18:47 Course - Vital Signs Vital signs: Temp Pulse Resp BP Pulse Ox 97.9 F 108 H 16 126/87 H 97 09/18/19 18:47 09/18/19 18:47 09/18/19 18:47 09/18/19 18:47 09/18/19 18:47
--- NOTE | 2019-09-18 19:56 | RADIOLOGY REPORT (SQ) ---
EXAM DESCRIPTION: CHEST SINGLE VIEW IMAGES COMPLETED DATE/TIME: 09/18/2019 7:45 pm REASON FOR STUDY: chest pain COMPARISON: Through 05/18/1979 EXAM PARAMETERS: NUMBER OF VIEWS: One view. TECHNIQUE: Single frontal radiographic view of the chest acquired. RADIATION DOSE: NA LIMITATIONS: None. FINDINGS: LUNGS AND PLEURA: No opacities, masses or pneumothorax. No pleural effusion. MEDIASTINUM AND HILAR STRUCTURES: No masses. Contour normal. HEART AND VASCULAR STRUCTURES: Heart normal in size. Normal vasculature. BONES: No acute findings. HARDWARE: None in the chest. OTHER: No other significant finding. IMPRESSION: NO ACUTE RADIOGRAPHIC FINDING IN THE CHEST. TECHNICAL DOCUMENTATION: JOB ID: [id number] 2010 [employer]- All Rights Reserved Reading location - IP/workstation name: [email or web address]
[2019-09-18] MEDS ORDERED: NITROGLYCERIN/D5W 50 MG/250 ML RTUINJ IV PRN (21:04)
[2019-09-18] MEDS ORDERED: MORPHINE SULFATE 10 MG/ML INJ IV PRN (21:05)
[2019-09-18] MEDS ORDERED: ONDANSETRON HCL INJ/PF 4 MG/2 ML SDV IV ONE (21:05)
--- NOTE | 2019-09-18 21:20 | ER Document Report ---
ED General - General Chief Complaint: Chest Pressure Stated Complaint: CHEST PAIN Time Seen by Provider: 09/18/19 19:24 Mode of Arrival: Ambulatory Information source: Patient Notes: 54-year-old female arrives with chief complaint of having 4 out of 5 midsternal chest pain radiating to her left shoulder. She reports these chest pain began around 0400 this morning awakening her from sleep. Patient reports 4 years ago she had a AK at [facility] under Dr. Ochoa care. Her 73-year-old mother just recently had a AK and was taken care of by the same physician. Patient reports she had 2 stents placed. Patient reports she has nausea without vomiting since the a.m. hours. She did take 2 nitroglycerin tablets prior to arrival and her blood pressure currently is 90 systolic. She now has a pounding headache from her nitroglycerin. She denies any vomiting d iarrhea constipation dysuria spider bite animal bites fever chills coronavirus.. Despite outbreak in this country of coronavirus.. Diaphoresis nuchal rigidity trauma abuse Barba notes from 2019 Patient states she was having central chest pain today with shortness of breath nausea and sweating. She states that it radiates to the left arm. It was constant. It was relieved with nitroglycerin for only 5 to 10 minutes. It is been constant since then. Patient denies any cough cold or congestion. She states she has had previous stents placed several years ago. She states that she does not take any type of blood thinner except Plavix but she does not always take her Plavix. She denies any fevers. She states this pain feels similar to when she had to have her stents placed several years ago. 02/10/19 21:55 Patient presents with chest pain. Patient had a recent admission approximate 2 weeks ago in which she also had chest pain. She was seen by cardiology during the visit and the pain was deemed noncardiac. This pain also seems to be noncardiac as she has had it all day however she has no EKG or enzyme changes. She has been stable here throughout. Vitals have been normal. Her d-dimer is not significantly changed from her previous d-dimer. I do not believe that the patient's pain is cardiac or pulmonary in origin. Most likely it is probably chest wall. I think patient is stable for discharge and follow-up as an outpatient. TRAVEL OUTSIDE OF THE [place] IN LAST 30 DAYS: No - HPI Onset: Just prior to arrival Onset/Duration: Sudden, Persistent, Worse Quality of pain: Achy Severity: Moderate Pain Level: 2 Associated symptoms: Chest pain Exacerbated by: Denies Relieved by: Denies Similar symptoms previously: Yes Recently seen / treated by doctor: No - Related Data Allergies/Adverse Reactions: acetaminophen [From Tylenol] Allergy (Verified 07/08/19 07:38) aspirin Allergy (Verified 07/08/19 07:38) fentanyl Allergy (Verified 07/08/19 07:38) mushroom Allergy (Verified 07/08/19 07:38) NSAIDS (Non-Steroidal Anti-Inflamma Allergy (Verified 07/08/19 07:38) Home Medications: plavix, trazadone, NTG Past Medical History - General Information source: Patient - Social History Smoking Status: Current Every Day Smoker Cigarette use (# per day): Yes Chew tobacco use (# tins/day): No Smoking Education Provided: Yes Drug Abuse: None Lives with: Family Family History: CAD. denies: DM, Hyperlipidemia, Hypertension, Malignancy Patient has homicidal ideation: No - Past Medical History Cardiac Medical History: Reports: Hx Coronary Artery Disease, Hx DVT, Hx Pulmonary Embolism Denies: Hx Atrial Fibrillation, Hx Congestive Heart Failure, Hx Heart Attack, Hx Hypercholesterolemia, Hx Hypertension Pulmonary Medical History: Denies: Hx Asthma, Hx COPD Neurological Medical History: Denies: Hx Seizures Endocrine Medical History: Denies: Hx Diabetes Mellitus Type 1, Hx Diabetes Mellitus Type 2, Hx Hyperthyroidism, Hx Hypothyroidism Renal/ Medical History: Reports: Hx Kidney Stones GI Medical History: Reports: Hx Gastroesophageal Reflux Disease. Denies: Hx Cirrhosis, Hx Crohn's Disease, Hx Hepatitis, Hx Ulcerative Colitis Musculoskeletal Medical History: Denies Hx Arthritis, Denies Hx Gout Skin Medical History: Denies Hx Eczema, Denies Hx Psoriasis Psychiatric Medical History: Reports: Hx Depression Infectious Medical History: Denies: Hx Hepatitis Past Surgical History: Reports: Hx Cardiac Catheterization - x2, Hx Section, Hx Cholecystectomy, Hx Coronary Stent - X 2, Hx Genitourinary Surgery - Gastric bypass, Hx Tonsillectomy - Immunizations Hx Diphtheria, Pertussis, Tetanus Vaccination: Yes Review of Systems - Review of Systems Constitutional: No symptoms reported EENT: No symptoms reported Cardiovascular: See HPI, Chest pain - Referral to left shoulder with nausea Respiratory: No symptoms reported Gastrointestinal: No symptoms reported Genitourinary: No symptoms reported Female Genitourinary: No symptoms reported Musculoskeletal: No symptoms reported Skin: No symptoms reported Hematologic/Lymphatic: No symptoms reported Neurological/Psychological: No symptoms reported Physical Exam - Vital signs Vitals: Temp Pulse Resp BP Pulse Ox 97.9 F 108 H 16 126/87 H 97 09/18/19 18:47 09/18/19 18:47 09/18/19 18:47 09/18/19 18:47 09/18/19 18:47 Interpretation: Tachycardic - General General appearance: Alert - HEENT Head: Normocephalic, Atraumatic Eyes: Normal Pupils: PERRL - Respiratory Respiratory status: No respiratory distress Chest status: Nontender Breath sounds: Normal Chest palpation: Normal - Cardiovascular Rhythm: Tachycardia Heart sounds: Normal auscultation Murmur: No - Abdominal Inspection: Normal Distension: No distension Bowel sounds: Normal Tenderness: Nontender Organomegaly: No organomegaly - Rectal Stool: Other - deferred - Genitourinary External exam: Other - deferred - Back Back: Normal - Extremities General upper extremity: Normal inspection General lower extremity: Normal inspection - Neurological Neuro grossly intact: Yes Cognition: Normal Orientation: AAOx4 [place] Com[place] Scale Eye Opening: Spontaneous [place] Com[place] Scale Verbal: Oriented [place] Coma Scale Motor: Obeys Commands [place] Coma Scale Total: 15 Speech: Normal Motor strength normal: LUE, RUE, LLE, RLE Sensory: Normal - Psychological Associated symptoms: Anxious - Skin Skin Temperature: Warm Skin Moisture: Dry Course - Vital Signs Vital signs: Temp Pulse Resp BP Pulse Ox 97.9 F 108 H 14 90/65 L 96 09/18/19 19:26 09/18/19 18:47 09/18/19 22:00 09/18/19 21:01 09/18/19 23:00 - Laboratory Result Diagrams: 09/18/19 22:55 09/18/19 22:55 Laboratory results interpreted by me: 09/18/19 09/18/19 22:55 22:55 RDW 15.1 H Plt Count 110 L Alkaline Phosphatase 141 H I called lab and spoke with Josi mechanical design technician at 0 216 and she advises me that the troponin was less than 0.0 12 - Diagnostic Test Radiology reviewed: Reports reviewed - EKG Interpretation by Me EKG shows normal: Sinus rhythm Rate: Tachycardia Critical Care Note - Critical Care Note Total time excluding time spent on procedures (mins): 90 Comments: I discussed this case with Dr. Deal glueline worker and he advises he will call this patient in order to set up for an appointment for her angina. Discharge - Discharge Clinical Impression: Chest pain at rest, Angina at rest Condition: Good Disposition: HOME, SELF-CARE Additional Instructions: Follow-up with Dr. Deal and he will call you on your phone he was notified this morning and will call you later. Return to ER symptoms persist take medicines as directed
[2019-09-18 23:09] LABS: ABSOLUTE BASOPHILS # (AUTO) 0.1 10^3/uL (0.0-0.2); ABSOLUTE EOSINOPHILS # (AUTO) 0.1 10^3/uL (0.0-0.6); ABSOLUTE LYMPHOCYTES (AUTO) 2.1 10^3/uL (0.5-4.7); ABSOLUTE MONOCYTES (AUTO) 0.4 10^3/uL (0.1-1.4); ABSOLUTE NEUT (AUTO) 4.7 10^3/uL (1.7-8.2); EOSINOPHILS % (AUTO) 1.9 % (0-6); HEMOGLOBIN 12.4 g/dL (12.0-15.5); LYMPHOCYTES % (AUTO) 28.3 % (13-45); MEAN CORPUSCULAR HEMOGLOBIN 31.1 pg (27.0-33.4); MEAN CORPUSCULAR HGB CONC 34.5 g/dL (32.0-36.0); MEAN CORPUSCULAR VOLUME 90 fl (80-97); MONOCYTES % (AUTO) 5.7 % (3-13); RED BLOOD COUNT 3.99 10^6/uL (3.72-5.28); RED CELL DISTRIBUTION WIDTH 15.1 % (11.5-14.0); SEGMENTED NEUTROPHILS % (AUTO) 63.1 % (42-78); TOTAL CELLS COUNTED % (AUTO) 100 %; WHITE BLOOD COUNT 7.5 10^3/uL (4.0-10.5)
[2019-09-18] MEDS ORDERED: MORPHINE SULFATE 10 MG/ML INJ IM ONE (23:11)
[2019-09-18] MEDS ORDERED: ONDANSETRON 4 MG TAB.RAPDIS PO ONE (23:11)
[2019-09-18 23:24] LABS: PLATELET COUNT 110 10^3/uL (150-450)
[2019-09-18 23:37] LABS: ALBUMIN 4.1 g/dL (3.5-5.0); ALKALINE PHOSPHATASE 141 U/L (38-126); ANION GAP 8 (5-19); ASPARTATE AMINO TRANSFERASE 27 U/L (14-36); BILIRUBIN,TOTAL 0.3 mg/dL (0.2-1.3); BLOOD UREA NITROGEN 18 mg/dL (7-20); CALCIUM 8.9 mg/dL (8.4-10.2); CARBON DIOXIDE 29 mmol/L (22-30); CHLORIDE 100 mmol/L (98-107); CREATINE KINASE 31 U/L (30-135); GLUCOSE 97 mg/dL (75-110); TOTAL PROTEIN 7.1 g/dL (6.3-8.2)
[2019-09-18] MEDS ORDERED: LIDOCAINE 2% VISCOUS SOLN 15 ML UDCUP PO ONE (23:43)
[2019-09-18] MEDS ORDERED: METOCLOPRAMIDE HCL ORAL SOLN 10 MG/10 ML UDCUP PO ONE (23:43)
[2019-09-18] MEDS ORDERED: MAG HYDROX/AL HYDROX/SIMETH SUSP 30 ML UDCUP PO ONE (23:43)
[2019-09-19] MEDS ORDERED: MORPHINE SULFATE 10 MG/ML INJ IM ONE (00:29)
[2019-09-19 02:23] VITALS: BP 112/74
[2019-09-19] MEDS ORDERED: HYDROCODONE/ACETAMINOPHEN 5-325 MG (6 TAB/ER DISP) PO PRN (02:37)
== END 2019-09-19 02:46 | disposition home or self-care (01) ==
LOC: ER 18:37
DX: R07.9 Chest pain, unspecified (principal); I20.9 Angina pectoris, unspecified; M25.512 Pain in left shoulder; R51 Headache; R11.0 Nausea; R61 Generalized hyperhidrosis; R06.02 Shortness of breath; Z79.899 Other long term (current) drug therapy; Z88.8 Allergy status to other drugs, medicaments and biological substances; F17.210 Nicotine dependence, cigarettes, uncomplicated
CPT/HCPCS: 93005; 99291; 99292; 96372; 36415; 82550; 85025; 80053; 84484; 71045; 93010; A9270 ×3; J2270 ×2; S0119

== ENCOUNTER 2019-10-01 19:17 | Emergency (ER) | payer MEDICARE, MEDICAID ==
--- NOTE | 2019-10-01 20:46 | ER Document Report ---
ED Medical Screen (RME) - General Chief Complaint: Chest Pain Stated Complaint: CHEST PAIN Time Seen by Provider: 10/01/19 20:38 Notes: HPI: 54-year-old female presenting to the emergency department complaining of a heavy chest pain in the left chest with radiation into the left shoulder left neck and left jaw. She has had nausea no vomiting. Some shortness of breath. Patient states she has 2 stents that were put in 4 years ago at [facility] in [place]. Patient traveled down here yesterday to see a friend and needs very from [place]. No fever. No cough. Patient is allergic to aspirin. Patient states she took 4 nitroglycerin with some resolution of the discomfort for several minutes before reoccurred. States it feels different than when she got her stents in PHYSICAL EXAMINATION: Lung sounds are clear to auscultation regular rate and rhythm. No reproducible pain on palpation. I have greeted and performed a rapid initial assessment of this patient. A comprehensive ED assessment and evaluation of the patient, analysis of test results and completion of medical decision making process will be conducted by an additional ED providers. TRAVEL OUTSIDE OF THE [place] IN LAST 30 DAYS: No - Related Data Allergies/Adverse Reactions: acetaminophen [From Tylenol] Allergy (Verified 07/08/19 07:38) aspirin Allergy (Verified 07/08/19 07:38) fentanyl Allergy (Verified 07/08/19 07:38) mushroom Allergy (Verified 07/08/19 07:38) NSAIDS (Non-Steroidal Anti-Inflamma Allergy (Verified 07/08/19 07:38) Past Medical History - Social History Chew tobacco use (# tins/day): No Frequency of alcohol use: None Drug Abuse: None - Past Medical History Cardiac Medical History: Reports: Hx Coronary Artery Disease, Hx DVT, Hx Pulmonary Embolism Denies: Hx Atrial Fibrillation, Hx Congestive Heart Failure, Hx Heart Attack, Hx Hypercholesterolemia, Hx Hypertension Pulmonary Medical History: Denies: Hx Asthma, Hx COPD Neurological Medical History: Denies: Hx Seizures Endocrine Medical History: Denies: Hx Diabetes Mellitus Type 1, Hx Diabetes Mellitus Type 2, Hx Hyperthyroidism, Hx Hypothyroidism Renal/ Medical History: Reports: Hx Kidney Stones GI Medical History: Reports: Hx Gastroesophageal Reflux Disease. Denies: Hx Cirrhosis, Hx Crohn's Disease, Hx Hepatitis, Hx Ulcerative Colitis Musculoskeltal Medical History: Denies Hx Arthritis, Denies Hx Gout Skin Medical History: Denies Hx Eczema, Denies Hx Psoriasis Psychiatric Medical History: Reports: Hx Depression Infectious Medical History: Denies: Hx Hepatitis Past Surgical History: Reports: Hx Cardiac Catheterization - x2, Hx Section, Hx Cholecystectomy, Hx Coronary Stent - X 2, Hx Genitourinary Surgery - Gastric bypass, Hx Tonsillectomy - Immunizations Hx Diphtheria, Pertussis, Tetanus Vaccination: Yes Physical Exam - Vital signs Vitals: Temp Pulse Resp BP Pulse Ox 98.0 F 103 H 16 134/93 H 96 10/01/19 19:28 10/01/19 19:28 10/01/19 19:28 10/01/19 19:28 10/01/19 19:28 Course - Vital Signs Vital signs: Temp Pulse Resp BP Pulse Ox 98.0 F 103 H 16 134/93 H 96 10/01/19 20:39 10/01/19 19:28 10/01/19 19:28 10/01/19 19:28 10/01/19 19:28
--- NOTE | 2019-10-01 21:31 | RADIOLOGY REPORT (SQ) ---
CLINICAL INDICATION: CHEST PAIN. TECHNIQUE: A single portable AP view was obtained of the chest at 2048 hours. COMPARISON: None. FINDINGS: The cardiomediastinal silhouette is normal. The lungs demonstrate atelectasis left base. No evidence of effusion or pneumothorax. The visualized bones are unremarkable. IMPRESSION: No evidence of active intrathoracic disease. Atelectasis/scar left base, similar to prior
[2019-10-01 22:23] LABS: ABSOLUTE EOSINOPHILS # (AUTO) 0.1 10^3/uL (0.0-0.6); ABSOLUTE LYMPHOCYTES (AUTO) 1.7 10^3/uL (0.5-4.7); ABSOLUTE MONOCYTES (AUTO) 0.5 10^3/uL (0.1-1.4); ABSOLUTE NEUT (AUTO) 5.2 10^3/uL (1.7-8.2); BASOPHILS % (AUTO) 0.2 % (0-2); EOSINOPHILS % (AUTO) 1.5 % (0-6); HEMATOCRIT 37.8 % (36.0-47.0); HEMOGLOBIN 12.9 g/dL (12.0-15.5); LYMPHOCYTES % (AUTO) 22.6 % (13-45); MEAN CORPUSCULAR HEMOGLOBIN 31.3 pg (27.0-33.4); MEAN CORPUSCULAR HGB CONC 34.1 g/dL (32.0-36.0); MEAN CORPUSCULAR VOLUME 92 fl (80-97); MONOCYTES % (AUTO) 6.5 % (3-13); PLATELET COUNT 239 10^3/uL (150-450); RED BLOOD COUNT 4.11 10^6/uL (3.72-5.28); RED CELL DISTRIBUTION WIDTH 14.7 % (11.5-14.0); SEGMENTED NEUTROPHILS % (AUTO) 69.2 % (42-78); TOTAL CELLS COUNTED % (AUTO) 100 %; WHITE BLOOD COUNT 7.5 10^3/uL (4.0-10.5)
[2019-10-01 22:40] LABS: ALBUMIN 4.1 g/dL (3.5-5.0); ALKALINE PHOSPHATASE 131 U/L (38-126); ANION GAP 6 (5-19); ASPARTATE AMINO TRANSFERASE 26 U/L (14-36); BILIRUBIN,DIRECT 0.1 mg/dL (0.0-0.4); BILIRUBIN,TOTAL 0.3 mg/dL (0.2-1.3); BLOOD UREA NITROGEN 17 mg/dL (7-20); CALCIUM 9.1 mg/dL (8.4-10.2); CARBON DIOXIDE 29 mmol/L (22-30); CHLORIDE 102 mmol/L (98-107); CREATINE KINASE 36 U/L (30-135); GLUCOSE 105 mg/dL (75-110); POTASSIUM 4.2 mmol/L (3.6-5.0); TOTAL PROTEIN 7.1 g/dL (6.3-8.2)
[2019-10-01 22:47] LABS: PROTHROMBIN TIME 14.3 SEC (11.4-15.4)
[2019-10-01 22:53] LABS: CREATINE KINASE MB < 0.22 ng/mL (<4.55); TROPONIN I < 0.012 ng/mL
--- NOTE | 2019-10-02 00:03 | ER Document Report ---
ED General - General Chief Complaint: Chest Pain Stated Complaint: CHEST PAIN Time Seen by Provider: 10/01/19 20:38 TRAVEL OUTSIDE OF THE [place] IN LAST 30 DAYS: No - HPI Notes: Patient is a 54-year-old female who presents to the emergency department for evaluation. She states she has had chest pain since between 730 and 8:00 this morning. She states she got it when she was walking back from the bathroom, going back to bed. She states it feels like "a truck sitting on my chest." It is in a [place] under her left breast, radiates into her left arm and her left jaw. She has some associated shortness of breath, denies any nausea, diaphoresis, near syncope. She states she has had no changes in her pain throughout the day, despite activity, rest, medication. She had similar pain here in the emergency department several times this year. She has an appointment to follow-up with her mold breaker in 2 weeks. - Related Data Allergies/Adverse Reactions: acetaminophen [From Tylenol] Allergy (Verified 07/08/19 07:38) aspirin Allergy (Verified 07/08/19 07:38) fentanyl Allergy (Verified 07/08/19 07:38) mushroom Allergy (Verified 07/08/19 07:38) NSAIDS (Non-Steroidal Anti-Inflamma Allergy (Verified 07/08/19 07:38) Home Medications: Patient is unsure. Medications include Seroquel, Protonix, Vraylar, Neurontin Past Medical History - General Information source: Patient - Social History Smoking Status: Former Smoker Chew tobacco use (# tins/day): No Frequency of alcohol use: None Drug Abuse: None Family History: CAD. denies: DM, Hyperlipidemia, Hypertension, Malignancy Patient has homicidal ideation: No - Past Medical History Cardiac Medical History: Reports: Hx Coronary Artery Disease, Hx DVT, Hx Pulmonary Embolism Denies: Hx Atrial Fibrillation, Hx Congestive Heart Failure, Hx Heart Attack, Hx Hypercholesterolemia, Hx Hypertension Pulmonary Medical History: Denies: Hx Asthma, Hx COPD Neurological Medical History: Denies: Hx Seizures Endocrine Medical History: Denies: Hx Diabetes Mellitus Type 1, Hx Diabetes Mellitus Type 2, Hx Hyperthyroidism, Hx Hypothyroidism Renal/ Medical History: Reports: Hx Kidney Stones GI Medical History: Reports: Hx Gastroesophageal Reflux Disease. Denies: Hx Cirrhosis, Hx Crohn's Disease, Hx Hepatitis, Hx Ulcerative Colitis Musculoskeletal Medical History: Denies Hx Arthritis, Denies Hx Gout Skin Medical History: Denies Hx Eczema, Denies Hx Psoriasis Psychiatric Medical History: Reports: Hx Depression Infectious Medical History: Denies: Hx Hepatitis Past Surgical History: Reports: Hx Cardiac Catheterization - x2, Hx Section, Hx Cholecystectomy, Hx Coronary Stent - X 2, Hx Genitourinary Surgery - Gastric bypass, Hx Tonsillectomy - Immunizations Hx Diphtheria, Pertussis, Tetanus Vaccination: Yes Review of Systems - Review of Systems Cardiovascular: See HPI Respiratory: See HPI -: Yes All other systems reviewed and negative Physical Exam - Vital signs Vitals: Temp Pulse Resp BP Pulse Ox 98.0 F 103 H 16 134/93 H 96 10/01/19 19:28 10/01/19 19:28 10/01/19 19:28 10/01/19 19:10/01/19 19:28 - Notes Notes: Vital signs reviewed, please refer to chart. Head is normocephalic, atraumatic. Pupils equal round, reactive to light. Neck is supple without meningismus. Heart is regular rate and rhythm. Lungs are clear to auscultation bilaterally. Abdomen is soft, nontender, normoactive bowel sounds throughout. Extremities without cyanosis, clubbing. Posterior calves are nontender. Peripheral pulses are equal. Skin is warm and dry. Patient is awake, alert, neurological exam is nonfocal. Course - Re-evaluation Re-evalutation: 10/02/19 00:01 Patient presents to the emergency department for evaluation. Laboratory investigations were obtained. She was placed on a panel monitor. Awaiting second troponin. Her initial troponin was negative. Certainly given the duration of time that she has had this pain, I believe believe this second troponin will rule her out for acute coronary syndrome. She cannot be given aspirin given her allergy. She has follow-up with her mold breaker in 2 weeks. She is encouraged to keep that appointment. Patient is stable at this time, we will continue to monitor. 10/02/19 00:58 Patient asks for something for nausea and pain. I offered her Zofran and Tylenol. She states to me that she is allergic to Tylenol. I went back through her prescription history, and she has had multiple prescriptions for Vicodin. She states to me "if it is mixed with something like hydrocodone, I do not get an allergy." I told her that did not make scientific sense. I told her I did not feel comfortable giving her narcotics, she then asked me for ultram. I explained to her that that was again a controlled substance and I would not be administering her any of these medications this evening. She voiced understanding. 10/02/19 01:10 On further investigation it was noted that the patient had received controlled substance prescriptions from over 20 providers in the last 18 months. I do have concerns for drug-seeking behavior. After our conversation regarding the fact that I would not be administering her any narcotics, the patient was found by nursing to be removing her leads, stated "if she is not going to give me anything for pain, there is no reason for me to stay." She did sign AMA forms. I did explain my thought process to her, and that it was a red flag that she had seen so many providers. She immediately told me she was not addicted to controlled substances. I explained her that may be the case, but it was a behavior that should prompt some further self investigation on her part. I just wanted to bring that to her attention. She does not want any help at this time, and the patient again was discharged AMA. - Vital Signs Vital signs: Temp Pulse Resp BP Pulse Ox 98.0 F 103 H 16 134/93 H 96 10/01/19 20:39 10/01/19 19:28 10/01/19 19:28 10/01/19 19:28 10/01/19 19:28 - Laboratory Result Diagrams: 10/01/19 22:13 10/01/19 22:13 Laboratory results interpreted by me: 10/01/19 10/01/19 22:13 22:13 RDW 14.7 H Alkaline Phosphatase 131 H - Diagnostic Test Radiology reviewed: Image reviewed, Reports reviewed Radiology results interpreted by me: 10/02/19 00:02 Chest X-Ray 10/01/19 00:00 IMPRESSION: No evidence of active intrathoracic disease. Atelectasis/scar left base, similar to prior - EKG Interpretation by Me Additional EKG results interpreted by me: 10/02/19 00:02 Sinus tachycardia with a rate of 101 bpm. Normal axis and intervals. Nonspecific ST changes, particularly anteriorly, but no acute elevation concerning for ischemia or infarction. No change in compared to prior study of September 18, 2019 Discharge - Discharge Clinical Impression: Chest pain Condition: Stable Disposition: AGAINST MEDICAL ADVICE Instructions: Chest Pain of Unclear Cause ([facility]) Additional Instructions: You have decided to leave AGAINST MEDICAL ADVICE, prior to your second troponin being resulted. You have acknowledged the fact that you could be at risk of severe heart damage, sudden cardiac , or other disability. Please follow- up with your mold breaker as scheduled. Return to the ED with worsening or new concerning symptoms of any sort.
[2019-10-02] MEDS ORDERED: ACETAMINOPHEN 325 MG TABLET PO ONE (00:53)
[2019-10-02] MEDS ORDERED: ONDANSETRON 4 MG TAB.RAPDIS PO ONE (00:53)
[2019-10-02 01:22] VITALS: BP 110/71
--- NOTE | 2019-10-02 12:37 | EKG REPORT ---
SEVERITY:- BORDERLINE ECG - SINUS TACHYCARDIA BORDERLINE T ABNORMALITIES, ANTERIOR LEADS : Confirmed by: Zarina Ordoñez 02-Oct-2019 12:36:24
== END 2019-10-02 01:19 | disposition left against medical advice (07) ==
LOC: ER 19:17
DX: R07.9 Chest pain, unspecified (principal); R06.02 Shortness of breath; R00.0 Tachycardia, unspecified; I25.10 Atherosclerotic heart disease of native coronary artery without angina pectoris; K21.9 Gastro-esophageal reflux disease without esophagitis; Z79.899 Other long term (current) drug therapy; Z95.5 Presence of coronary angioplasty implant and graft; Z98.84 Bariatric surgery status; Z86.711 Personal history of pulmonary embolism; Z86.718 Personal history of other venous thrombosis and embolism; Z88.8 Allergy status to other drugs, medicaments and biological substances; Z88.6 Allergy status to analgesic agent; Z88.5 Allergy status to narcotic agent; Z91.018 Allergy to other foods; Z53.29 Procedure and treatment not carried out because of patient's decision for other reasons
CPT/HCPCS: 93005; 99285; 36415; 82553; 82550; 85025; 85610; 80053; 84484; 71045; 93010; A9270; S0119